=== PATIENT | female | born 1960 | race Caucasian/White ===

== ENCOUNTER 2020-02-07 11:26 | Outpatient (CLI) | payer OTHER, SELFPAY ==
[2020-02-07 13:10] LABS: Hemoglobin 13.4 g/dL (12.0-15.0); Red Blood Count 4.22 M/mm3 (4.20-5.40); White Blood Count 11.7 K/mm3 (4.8-10.8)
[2020-02-07 13:11] LABS: Basophils Percent Auto 0.6 % (0.0-1.0); Eosinophils Percent Auto 2.8 % (1.0-6.0); Hematocrit 39.1 % (35.0-49.0); Immature Granulocyte Absolute 0.06 K/mm3 (0.00-0.00); Immature Granulocyte Percent A 0.5 % (0.0-0.0); Lymphocytes Absolute Auto 4.13 K/mm3 (1.10-4.50); Lymphocytes Percent Auto 35.3 % (18.0-42.0); Mean Corpuscular HGB Conc 34.3 g/dL (32.0-36.0); Mean Corpuscular Hemoglobin 31.8 pg (27.0-31.0); Mean Corpuscular Volume 92.7 fL (78.0-102.0); Mean Platelet Volume 10.1 fl (9.2-11.8); Monocytes Absolute Auto 1.31 K/mm3 (0.10-0.90); Monocytes Percent Auto 11.2 % (2.0-11.0); Neutrophils Absolute Auto 5.8 K/mm3 (1.7-7.2); Neutrophils Percent Auto 49.6 % (50.0-70.0); Platelet Count Result 395 K/mm3 (150-420); Red Cell Distribution Width 13.4 % (11.6-14.4)
[2020-02-07 13:12] LABS: Basophils Absolute Auto 0.07 K/mm3 (0.00-0.10); Eosinophils Absolute Auto 0.33 K/mm3 (0.02-0.50)
[2020-02-07 13:39] LABS: Anion Gap 13.8 mmol/L (7-16); Blood Urea Nitrogen 20 mg/dL (7-18); Carbon Dioxide 25 mmol/L (21-32); Chloride 105 mmol/L (98-108); Estimated Glomerular Filt Rate > 60; Potassium 4.8 mmol/L (3.5-5.1); Sodium 139 mmol/L (136-145)
[2020-02-07 13:40] LABS: Alanine Aminotransferase 21 U/L (14-59); Albumin Level 4.5 g/dL (3.4-5.0); Alkaline Phosphatase 83 U/L (46-116); Aspartate Amino Transferase 19 U/L (15-37); Bilirubin,Total 0.4 mg/dL (0.00-1.00); Calcium 9.8 mg/dL (8.5-10.1); Cholesterol 235 mg/dL (0-200); Glucose 88 mg/dL (70-99); HDL Direct 45 mg/dL (40-60); LDL Cholesterol Calculated 166 mg/dL (<130); Osmolality Calculated 289 mOsm/kg (285-295); Total Protein 7.1 g/dL (6.4-8.2); Triglycerides 119 mg/dL (0-150)
== END 2020-02-07 11:27 | disposition home or self-care (01) ==
PROVIDERS: PCP Family Medicine; Visit Provider Family Medicine
DX: E03.9 Hypothyroidism, unspecified (principal); J44.9 Chronic obstructive pulmonary disease, unspecified
CPT/HCPCS: 36415; 80053; 80061; 84443; 85025

== ENCOUNTER 2020-02-27 11:04 | Outpatient (CLI) | payer OTHER, SELFPAY ==
--- NOTE | ~2020-02-27 | DEXA_ITS ---
BMD(1) Young-Adult(2) Age-Matched(3) Region (g/cm2) T-score Z-score WHO Classification L1 1.023 -1.0 0.2 Normal L2 1.020 -1.6 -0.4 Osteopenia L3 0.948 -2.1 -1.0 Osteopenia L4 1.023 -1.5 -0.4 Osteopenia L1-L4 1.003 -1.5 -0.4 Osteopenia Trend: L1-L4 Change vs Change vs Measured Age BMD(1) Baseline Previous Date (years) (g/cm2) (%) (%) 02/27/2020 [age] 1.003 baseline - 1 - Statistically 68% of repeat scans fall within 1SD (+- 0.010 g/cm2 for AP Spine L1-L4) 2 - [place] (Combined NHANES (ages 20-30) / [facility] (ages 20-40)) AP Spine Reference Population (v112) 3 - Matched for Age, Weight (females 25-100 kg), Ethnic 11 - World Health Organization - Definition of Osteoporosis and Osteopenia for Women: Normal = T-score at or above -1.0 SD; Osteopenia = T-score between -1.0 and -2.5 SD; Osteoporosis = T-score at or below -2.5 SD; (WHO definitions only apply when a young healthy Women reference database is used to determine T-scores.) Printed: 02/27/2020 11:50:42 AM (13.60)76:3.00:50.00:12.0 0.00:10.20 0.60x1.05 22.3:%Fat=32.0% 0.00:0.00 0.00:0.00 Filename: [id number] Scan Mode: Standard;OneScan 37.0 [employer] [id number] BMD(1) Young-Adult(2,7) Age-Matched(3) Region (g/cm2) T-score Z-score WHO Classification Neck Left 0.880 -1.1 0.1 Osteopenia Right 0.818 -1.6 -0.4 Osteopenia Mean 0.849 -1.4 -0.1 Osteopenia Difference 0.063 0.5 0.5 - Total Left 0.960 -0.4 0.5 Normal Right 0.906 -0.8 0.1 Normal Mean 0.933 -0.6 0.3 Normal Difference 0.054 0.4 0.4 - Hip [place] Length Comparison (mm) (Right = 101.4 mm) (Mean = 103.2 mm) (Left = 102.5 mm) Trend: Total Mean Change vs Change vs Measured Age BMD(1) Baseline Previous Date (years) (g/cm2) (%) (%) 02/27/2020 60.0 0.933 baseline - 1 - Statistically 68% of repeat scans fall within 1SD (+- 0.010 g/cm2 for DualFemur Total) 2 - [place] (Combined NHANES (ages 20-30) / [facility] (ages 20-40)) Femur Reference Population (v112) 3 - Matched for Age, Weight (females 25-100 kg), Ethnic 7 - [employer] Total T-score difference is 0.4. Asymmetry is None. 11 - World Health Organization - Definition of Osteoporosis and Osteopenia for Women: Normal = T-score at or above -1.0 SD; Osteopenia = T-score between -1.0 and -2.5 SD; Osteoporosis = T-score at or below -2.5 SD; (WHO definitions only apply when a young healthy Women reference database is used to determine T-scores.) Printed: 02/27/2020 11:50:43 AM (13.60); Filename: [id number].dfx; Right Femur; 18.1:%Fat=35.3%; Neck Angle (deg)= 65; Scan Mode: Standard 37.0 uGy; Left Femur; 17.4:%Fat=39.0%; Neck Angle (deg)= 71; Scan Mode: Standard 37.0 uGy [facility] [id number] Dear Larry Hernandez, Your patient Alva Shore completed a BMD test on 02/27/2020 using the [facility] DXA System (analysis version: 13.60) manufactured by [employer]. The following summarizes the results of our evaluation. PATIENT BIOGRAPHICAL: Name: Alva Shore Date: 1960 Height: 62.0 in. Gender:
--- NOTE | ~2020-02-27 | MM_ITS ---
EXAMINATION: MM screening gela BI w nuvia HISTORY: Screening mammogram TECHNIQUE: Craniocaudal and mediolateral oblique 3-D tomosynthesis images were obtained and synthetic 2-D images were generated. CAD analysis was submitted and interpreted. COMPARISON: No prior mammogram is available for comparison at this institution. BREAST PARENCHYMAL COMPOSITION: There are scattered areas of fibroglandular density. FINDINGS: There is question of small masses in the lower mid left and right breasts. Bilateral diagno stic mammography and bilateral breast ultrasound examination are recommended. IMPRESSION: 1. Possible small bilateral breast masses 2. Bilateral diagnostic mammography and bilateral breast ultrasound examination are recommended. BI-RADS Category 0: Incomplete: Needs additional imaging evaluation. Reviewed, dictated and finalized at location A.
== END 2020-02-27 11:05 | disposition home or self-care (01) ==
PROVIDERS: PCP Family Medicine; Visit Provider Family Medicine
DX: M85.80 Other specified disorders of bone density and structure, unspecified site (principal); Z12.31 Encounter for screening mammogram for malignant neoplasm of breast
CPT/HCPCS: 77063; 77067; 77080

== ENCOUNTER 2020-03-03 10:48 | Outpatient (CLI) | payer OTHER, SELFPAY ==
--- NOTE | ~2020-03-03 | MMUS_ITS ---
EXAMINATION: MM diagnostic gela BI w nuvia, US breast BI limited HISTORY: Possible small breast masses seen on recent mammogram. TECHNIQUE: Additional 3-D tomosynthesis images of the breasts were performed and synthetic 2-D images were generated. CAD analysis was submitted and interpreted. High resolution bilateral breast ultraso und was performed. COMPARISON: 02/27/2020 FINDINGS: MAMMOGRAPHIC FINDINGS: Breast composed of scattered areas of fibroglandular density. There are no suspicious masses, calcifi cations or architectural distortion in either breast to suggest malignancy. ULTRASOUND: Right breast ultrasound: There is a tiny cyst of the right breast at 6:00 near the nipple measuring less than 2 mm. There is a n oval hypoechoic mass of the right breast at 9:00 measuring 3 mm maximum dimension, likely benign. A t 9:00 near the nipple is an oval hypoechoic mass with echogenic hilum measuring 6 mm, most likely be nign intramammary lymph node. Left breast ultrasound: 2 mm cyst at 8:00, 3 cm from the nipple. No suspicious masses to suggest malignancy. IMPRESSION: 1. Probable benign masses of the right breast by ultrasound. No evidence for malignancy in the left b reast. 2. Recommend 6 month follow-up right breast ultrasound BI-RADS category 3, probably benign findings. Reviewed, dictated and finalized at location A. IMPRESSION: 1. Probable benign masses of the right breast by ultrasound. No evidence for ma lignancy in the left breast. 2. Recommend 6 month follow-up right breast ultrasound BI-RADS category 3, probably benign findings.
== END 2020-03-03 10:49 | disposition home or self-care (01) ==
PROVIDERS: PCP Family Medicine; Visit Provider Family Medicine
DX: R92.8 Other abnormal and inconclusive findings on diagnostic imaging of breast (principal)
CPT/HCPCS: 76642; 77062; 77066; G0279

== ENCOUNTER 2020-09-15 09:36 | Outpatient (CLI) | payer BC, SELFPAY ==
--- NOTE | ~2020-09-15 | US_ITS ---
US breast RT limited 09/15/2020 10:10 Indication: Follow-up right breast masses. Procedure: High-resolution ultrasound of the right breast Comparison: 03/03/2020 Findings: At 6:00 near the nipple there is an oval hypoechoic mass measuring 2.5 mm, unchanged, likel y benign. At 9:00 near the nipple there is a 2.4 mm oval hypoechoic mass which is stable, likely harsh gn. At 9:00 near the nipple there is an oval hypoechoic structure, possibly normal heterogeneous fibr oglandular content. This structure measures 6 x 5 x 2 mm, unchanged. Impression: 1: Stable right breast masses, likely benign. BI-RADS CATEGORY 3-PROBABLY BENIGN FINDING RECOMMENDATION: Six-month follow-up diagnostic bilateral mammogram and right breast ultrasound recomm ended. Reviewed, dictated and finalized at location A. IZATION COORDINATOR Impression: 1: Stable right breast masses, likely benign. BI-RADS CATEGORY 3-PROBABLY BENIGN FINDING RECOMMENDATION: Six-month follow-up diagnostic bilateral mammogram and right br east ultrasound recommended.
[2020-09-15 10:39] LABS: Thyroid Stimulating Hormone Reflex 2.66 u/IU/mL (0.36-3.74)
== END 2020-09-15 09:37 | disposition home or self-care (01) ==
PROVIDERS: PCP Family Medicine; Visit Provider Family Medicine
DX: N63.20 Unspecified lump in the left breast, unspecified quadrant (principal); N63.10 Unspecified lump in the right breast, unspecified quadrant; E03.9 Hypothyroidism, unspecified
CPT/HCPCS: 36415; 76642; 84443

== ENCOUNTER → 2020-12-13 01:09 | Outpatient (CLI) | payer BC, SELFPAY ==
[2020-12-13 18:53] LABS: SARS-CoV-2 RNA PCR Negative
== END ==
PROVIDERS: PCP Family Medicine; Visit Provider Internal Medicine Gastroenterology
DX: Z01.812 Encounter for preprocedural laboratory examination (principal); Z20.822 Contact with and (suspected) exposure to COVID-19
CPT/HCPCS: C9803; U0003; U0005

== ENCOUNTER 2020-12-16 02:00 | Day surgery (SDC) | payer BC, SELFPAY ==
[2020-12-08 12:28] VITALS: BMI 29.0
[2020-12-16 08:32] VITALS: BP 116/97; PULSE 115; RESP 18; TEMP 37; O2SAT 100; BMI 27.0
[2020-12-16] MEDS: LACTATED RINGERS 1,000 ML 150 ML IV CONT (08:42)
--- NOTE | 2020-12-16 09:06 | WPDANESEPPF ---
Anes - Initial Pre Proc Eval Procedure: Operation Date: 12/16/20 09:30 Proposed Procedures p Colonoscopy - Fercho Steel MD Date/Time: 12/16/20 09:06 Surgeon: Fercho Steel MD Pre Op Diagnosis: Positive Cologuard Patient Data Age: 60 Gender: F Height: 5 ft 2 in Weight: 67.1 kg Last Vital Signs Temp 98.6 F 12/16/20 08:32 Pulse 115 H 12/16/20 08:32 Resp 18 12/16/20 08:32 BP 116/97 H 12/16/20 08:32 Pulse Ox 100 12/16/20 08:32 Allergies Allergy/AdvReac Type Severity Reaction Status Date / Time fexofenadine Allergy Intermediate headache Verified 12/16/20 08:31 Penicillins Allergy Unknown Unknown Verified 12/16/20 08:31 Home Medications Medication Instructions Recorded Confirmed Type lorazepam 0.5 mg tablet 0.5 mg PO BID PRN 11/02/19 12/08/20 History omeprazole 20 mg capsule,delayed 20 mg PO DAILY cap 11/02/19 12/08/20 History release Lactobacillus acidophilus 1.5 mg 100 mmu cells PO DAILY 02/07/20 12/08/20 History (250 million cell) capsule ascorbate calcium (vitamin C) 500 500 mg PO DAILY 02/07/20 12/08/20 History mg tablet multivitamin,mr-qzji-gryxeaol 1 tablet PO DAILY 02/07/20 12/08/20 History loratadine 10 mg capsule 10 mg PO BID cap 05/14/20 12/08/20 History triamcinolone acetonide 0.5 % 1 applic TOPICAL BID PRN gm 05/14/20 12/08/20 History topical cream alendronate 70 mg tablet 70 mg PO WEEKLY #4 tablet 08/12/20 12/08/20 Rx montelukast 10 mg tablet 10 mg PO DAILY #90 tablet 08/14/20 12/08/20 Rx fluticasone fur. 100 mcg-umeclid 1 inh INHALATION DAILY #1 ea 09/10/20 12/16/20 Rx 62.5 mcg-vilant 25 mcg inhalat.powder fluticasone propionate 50 1 spray NASAL BID #15.8 ml 09/11/20 12/08/20 Rx mcg/actuation nasal spray,suspension diphenhydramine HCl 25 mg capsule 50 mg PO QPM cap 09/17/20 12/08/20 History atorvastatin 40 mg tablet 40 mg PO DAILY #30 tablet 09/23/20 12/08/20 Rx sodium,potassium,mag sulfates 17.5 See Rx Instructions PO .COMPLEX 11/06/20 Rx gram-3.13 gram-1.6 gram oral soln #354 ml levothyroxine 88 mcg tablet 88 mcg PO DAILY #30 tablet 12/01/20 12/08/20 Rx Calcium 600 + D(3) 2 tab-cap PO DAILY 12/08/20 12/08/20 History cholecalciferol (vitamin D3) 1,000 unit PO DAILY 12/08/20 12/08/20 History [Vitamin D3] cyanocobalamin (vitamin B-12) 500 mcg PO DAILY 12/08/20 12/08/20 History [Vitamin B-12] dextromethorphan-guaifenesin 1 tablet PO PRN PRN 12/08/20 12/08/20 History [Mucinex DM] Patient hx anesthesia problems: none Family hx anesthesia problems: none PMFSH Past Medical History Medical History (Updated 11/13/20 @ 12:47 by Larry Hernandez MD) Acute sinusitis Asthma COPD (chronic obstructive pulmonary disease) GERD (gastroesophageal reflux disease) Hypothyroidism Nicotine dependence Osteopenia Surgical History Surgical History History of hysterectomy 1986 Hx of tonsillectomy Family History Family History Father , Age 84 Hypertension Hyperlipidemia Skin cancer History of cerebrovascular accident Mother Hypertension Hyperlipidemia Dementia History of cerebrovascular accident Other Family history of arthritis Family history of malignant neoplasm Social History Social History Years smoked: 45 Smoking status: Former smoker Tobacco type: cigarettes Alcohol intake: never Drinks per week: 3 Substance use: never Substance use type: marijuana Other substance usage details: OCC. Living arrangements: with family Additional living arrangements comments: . 2 Children. 3 Step-Children. 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
--- NOTE | 2020-12-16 09:07 | PM.HPGS ---
History of Present Illness History of Present Illness Consent: Risks, benefits, and alternatives have been discussed and questions answered. Patient agrees to proceed with procedure. Chief complaint: Positive Cologuard Narrative: Alva Shore is a 60 year old female with positive cologuard, never had a colonoscopy Review of Systems Constitutional: Constitutional: Denies headache(s) and Denies weakness Eyes: Eyes: Denies blurry vision ENT: Reports Normal hearing present, Denies headache(s) and Denies neck pain Cardiovascular: Cardiovascular: Denies chest pain and Denies dyspnea Respiratory: Respiratory: Denies dyspnea Gastrointestinal: Gastrointestinal: Reports no additional gastrointestinal complaints Genitourinary: Genitourinary: Denies dysuria Musculoskeletal: Musculoskeletal: Denies neck pain Integumentary/Breasts: Skin/Breast: Denies dry skin Neurologic: Reports Normal hearing present, Denies headache(s) and Denies weakness Psychiatric: Psychiatric: Denies anxiety Endocrine: Endocrine: Denies change in body appearance Hematologic/Lymphatic: Hematologic/Lymphatic: Denies easy bleeding Allergic/Immunologic: Allergic/Immunologic: Denies urticaria PMFSH Past Medical History Medical History (Updated 12/16/20 @ 09:07 by Fercho Steel MD) Acute sinusitis Asthma COPD (chronic obstructive pulmonary disease) GERD (gastroesophageal reflux disease) Hypothyroidism Nicotine dependence Osteopenia Positive colorectal cancer screening using Cologuard test Surgical History Surgical History History of hysterectomy 1986 Hx of tonsillectomy Family History Family History Father , Age 84 Hypertension Hyperlipidemia Skin cancer History of cerebrovascular accident Mother Hypertension Hyperlipidemia Dementia History of cerebrovascular accident Other Family history of arthritis Family history of malignant neoplasm Social History Social History Years smoked: 45 Smoking status: Former smoker Tobacco type: cigarettes Alcohol intake: never Drinks per week: 3 Substance use: never Substance use type: marijuana Other substance usage details: OCC. Living arrangements: with family Additional living arrangements comments: . 2 Children. 3 Step-Children. 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 Gender identity (if verbalized by the patient): Female Meds Home Medications and Allergies Home Medications Medication Instructions Recorded Confirmed Type lorazepam 0.5 mg tablet 0.5 mg PO BID PRN 11/02/19 12/08/20 History omeprazole 20 mg capsule,delayed 20 mg PO DAILY cap 11/02/19 12/08/20 History release Lactobacillus acidophilus 1.5 mg 100 mmu cells PO DAILY 02/07/20 12/08/20 History (250 million cell) capsule ascorbate calcium (vitamin C) 500 500 mg PO DAILY 02/07/20 12/08/20 History mg tablet multivitamin,gf-tbns-emmrwytj 1 tablet PO DAILY 02/07/20 12/08/20 History loratadine 10 mg capsule 10 mg PO BID cap 05/14/20 12/08/20 History triamcinolone acetonide 0.5 % 1 applic TOPICAL BID PRN gm 05/14/20 12/08/20 History topical cream alendronate 70 mg tablet 70 mg PO WEEKLY #4 tablet 08/12/20 12/08/20 Rx montelukast 10 mg tablet 10 mg PO DAILY #90 tablet 08/14/20 12/08/20 Rx fluticasone fur. 100 mcg-umeclid 1 inh INHALATION DAILY #1 ea 09/10/20 12/16/20 Rx 62.5 mcg-vilant 25 mcg inhalat.powder fluticasone propionate 50 1 spray NASAL BID #15.8 ml 09/11/20 12/08/20 Rx mcg/actuation nasal spray,suspension diphenhydramine HCl 25 mg capsule 50 mg PO QPM cap 09/17/20 12/08/20 History atorvastatin 40 mg tablet 40 mg PO DAILY #30 tablet 09/23/20 12/08/20 Rx sodium,potassium,mag sulfates 17.5 See Rx Instructions PO .COMPLEX 11/06/20 Rx
[2020-12-16 09:34] VITALS: BP 143/98; PULSE 88; RESP 21; O2SAT 99
[2020-12-16 09:44] VITALS: BP 131/85; PULSE 85; RESP 21; O2SAT 100
[2020-12-16 09:54] VITALS: BP 136/89; PULSE 77; RESP 21; O2SAT 98
== END 2020-12-16 10:06 | disposition home or self-care (01) ==
PROVIDERS: PCP Family Medicine; Visit Provider Internal Medicine Gastroenterology
PROC: 0DJD8ZZ Inspection of Lower Intestinal Tract, Via Natural or Artificial Opening Endoscopic (ICD-10-PCS; CPT 45378; principal; 2020-12-16 09:30)
DX: R19.5 Other fecal abnormalities (principal); D12.0 Benign neoplasm of cecum; K63.5 Polyp of colon; K64.8 Other hemorrhoids; J44.9 Chronic obstructive pulmonary disease, unspecified; K21.9 Gastro-esophageal reflux disease without esophagitis; E03.9 Hypothyroidism, unspecified; M85.80 Other specified disorders of bone density and structure, unspecified site; Z87.891 Personal history of nicotine dependence; F12.90 Cannabis use, unspecified, uncomplicated
CPT/HCPCS: 45385; 45380; 88305; J2704; J7120

== ENCOUNTER 2021-02-16 10:37 | Outpatient (CLI) | payer BC, SELFPAY ==
--- NOTE | ~2021-02-16 | MMUS_ITS ---
EXAMINATION: MM diagnostic gela BI w nuvia, US breast RT limited HISTORY: Six-month follow-up for probably benign right breast masses TECHNIQUE: Craniocaudal, mediolateral, and mediolateral oblique 3-D tomosynthesis images of the michael ts were performed and synthetic 2-D images were generated. CAD analysis was submitted and interpreted . High resolution limited right breast ultrasound was performed. COMPARISON: 09/15/2020, 03/03/2020, 02/27/2020 BREAST PARENCHYMAL COMPOSITION: There are scattered areas of fibroglandular density. FINDINGS: MAMMOGRAPHIC FINDINGS: There is no evidence of suspicious mass, calcification, or architectural distortion in either breast to suggest malignancy. There has been no suspicious interval change. ULTRASOUND: There is a stable 2 mm oval, circumscribed, parallel, hypoechoic mass at the 6:00 location near the n ipple in the right breast. Also seen is a stable 3 mm mass with similar sonographic features at the 9 :00 location to the nipple. IMPRESSION: 1. Stable, probably benign sonographically detected right breast masses and no mammographic evidence of malignancy in either breast. 2. Given one year of interval stability, recommend 12 month followup diagnostic mammogram and right b reast ultrasound. BI-RADS category 3, probably benign findings. Reviewed, dictated and finalized at location A. IMPRESSION: 1. Stable, probably benign sonographically detected right breast masses and no mammographic evidence of malignancy in either breast. 2. Given one year of interval stability, recommend 12 month followup diagnostic mammogram and right breast ultrasound. BI-RADS category 3, probably benign findings.
== END 2021-02-16 10:38 | disposition home or self-care (01) ==
LOC: CHSIMG 10:40
PROVIDERS: PCP Family Medicine; Visit Provider Family Medicine
DX: R92.8 Other abnormal and inconclusive findings on diagnostic imaging of breast (principal)
CPT/HCPCS: 76642; 77062; 77066; G0279

== ENCOUNTER 2021-08-17 11:50 | Outpatient (CLI) | payer BC, SELFPAY ==
[2021-08-17 13:06] LABS: SARS-CoV-2 RNA PCR Negative (Negative)
== END 2021-08-17 11:51 | disposition home or self-care (01) ==
LOC: CHSLAB 11:53
PROVIDERS: PCP Nurse Practitioner Family; Visit Provider Nurse Practitioner Family
DX: Z20.822 Contact with and (suspected) exposure to COVID-19 (principal)
CPT/HCPCS: C9803; U0003; U0005

== ENCOUNTER 2021-09-11 11:21 | Outpatient (CLI) | payer BC, SELFPAY ==
--- NOTE | ~2021-09-11 | US_ITS ---
EXAMINATION: US venous doppler UE RT DATE: 09/11/2021 13:36 INDICATION: Right upper limb pain. TECHNIQUE: Grayscale ultrasound images without and with compression and Doppler ultrasound images of the right upper extremity veins were obtained. COMPARISON: None. FINDINGS: The visualized portions of the right internal jugular vein, subclavian vein, axillary vein, brachial veins, basilic vein, cephalic vein, radial vein, and ulnar vein are patent. IMPRESSION: 1. No deep venous thrombosis. Reviewed, dictated and finalized at location A. E SPECIALIST
[2021-09-11 12:44] LABS: Alanine Aminotransferase 20 U/L (14-59); Albumin Level 4.4 g/dL (3.4-5.0); Alkaline Phosphatase 68 U/L (46-116); Anion Gap 11 mmol/L (8-16); Aspartate Amino Transferase 14 U/L (15-37); Bilirubin,Total 0.2 mg/dL (0.00-1.00); Blood Urea Nitrogen 16 mg/dL (7-18); Carbon Dioxide 28 mmol/L (21-32); Chloride 103 mmol/L (98-108); Cholesterol 268 mg/dL (0-200); Estimated Glomerular Filt Rate > 60; Glucose 87 mg/dL (70-99); HDL Direct 57 mg/dL (40-60); LDL Cholesterol Calculated 190 mg/dL (<130); Magnesium 2.2 mg/dL (1.8-2.4); Osmolality Calculated 294 mOsm/kg (285-295); Potassium 4.6 mmol/L (3.5-5.1); Sodium 142 mmol/L (136-145); Thyroid Stimulating Hormone 6.66 uIU/mL (0.36-3.74); Total Protein 7.6 g/dL (6.4-8.2); Triglycerides 107 mg/dL (0-150)
[2021-09-11 12:47] LABS: Basophils Absolute Auto 0.06 K/mm3 (0.00-0.10); Basophils Percent Auto 0.5 % (0.0-1.0); Eosinophils Absolute Auto 0.21 K/mm3 (0.02-0.50); Eosinophils Percent Auto 1.8 % (1.0-6.0); Hematocrit 40.1 % (35.0-49.0); Hemoglobin 13.5 g/dL (12.0-15.0); Immature Granulocyte Absolute 0.04 K/mm3 (0.00-0.00); Immature Granulocyte Percent A 0.4 % (0.0-0.0); Lymphocytes Absolute Auto 3.81 K/mm3 (1.10-4.50); Lymphocytes Percent Auto 33.4 % (18.0-42.0); Mean Corpuscular HGB Conc 33.7 g/dL (32.0-36.0); Mean Corpuscular Hemoglobin 32.5 pg (27.0-31.0); Mean Corpuscular Volume 96.6 fL (78.0-102.0); Mean Platelet Volume 10.7 fl (9.2-11.8); Monocytes Absolute Auto 1.13 K/mm3 (0.10-0.90); Monocytes Percent Auto 9.9 % (2.0-11.0); Neutrophils Absolute Auto 6.2 K/mm3 (1.7-7.2); Platelet Count Result 426 K/mm3 (150-420); Red Blood Count 4.15 M/mm3 (4.20-5.40); Red Cell Distribution Width 13.3 % (11.6-14.4); White Blood Count 11.4 K/mm3 (4.8-10.8)
[2021-09-16 04:33] LABS: Vitamin D 25 Hydroxy 83 ng/mL (30-100)
== END 2021-09-11 11:22 | disposition home or self-care (01) ==
LOC: CHSLAB 11:24
PROVIDERS: PCP Nurse Practitioner Family; Visit Provider Nurse Practitioner Family
DX: M79.601 Pain in right arm (principal); E78.5 Hyperlipidemia, unspecified; M85.80 Other specified disorders of bone density and structure, unspecified site; E03.9 Hypothyroidism, unspecified; J44.9 Chronic obstructive pulmonary disease, unspecified; J45.909 Unspecified asthma, uncomplicated
CPT/HCPCS: 36415; 80053; 80061; 82306; 83735; 84443; 85025; 93971

== ENCOUNTER 2021-10-23 11:14 | Outpatient (CLI) | payer BC, SELFPAY ==
[2021-10-23 12:30] LABS: Thyroid Stimulating Hormone 3.93 uIU/mL (0.36-3.74)
== END 2021-10-23 11:15 | disposition home or self-care (01) ==
LOC: CHSLAB 11:16
PROVIDERS: PCP Nurse Practitioner Family; Visit Provider Nurse Practitioner Family
DX: E03.9 Hypothyroidism, unspecified (principal)
CPT/HCPCS: 36415; 84443

== ENCOUNTER 2021-12-04 10:23 | Outpatient (CLI) | payer BC, SELFPAY ==
[2021-12-04 11:19] LABS: Thyroid Stimulating Hormone 4.31 uIU/mL (0.36-3.74)
== END 2021-12-04 10:24 | disposition home or self-care (01) ==
LOC: CHSLAB 10:25
PROVIDERS: PCP Nurse Practitioner Family; Visit Provider Nurse Practitioner Family
DX: E03.9 Hypothyroidism, unspecified (principal)
CPT/HCPCS: 36415; 84443

== ENCOUNTER 2021-12-10 11:52 | Outpatient (CLI) | payer BC, SELFPAY ==
--- NOTE | ~2021-12-10 | US_ITS ---
EXAMINATION: US thyroid EXAM DATE: 12/10/2021 12:25 INDICATION: E03.9 - Hypothyroidism, unspecified. TECHNIQUE: Multiple grayscale and Doppler images of the thyroid were obtained (by a technologist who performed the scan) and subsequently reviewed. Individual nodules and recommendations may be reporte d in accordance with TI-RADS system as designated by the 2017 ACR White Paper TI-RADS committee. Comp lori is made to prior examination from 09/08/2012. FINDINGS: The right thyroid lobe measures 4.4 x 2.0 x 1.1 cm, the left measuring 5.2 x 1.2 x 1.1 cm. Thyroid pa renchyma is diffusely heterogeneous. There is a nodule in the right thyroid lobe superficially measuring 5 x 5 x 5 mm, solid (2 points), h ypoechoic (2 points), wider than tall, smooth well defined margin, containing peripheral calcificatio n (2 points), category TR4 for this nodule. . Slightly larger but still subcentimeter nodule in the thyroid isthmus measuring 8 x 9 x 6 millimeters, solid (2 points), hypoechoic (2 points), wider than tall, smooth well defined margin, containing punctate echogenic foci consistent with microcalcificati on (3 points), category TR5 for this nodule. Previously seen 2 cm left thyroid lobe nodule no longer identified. IMPRESSION: Heterogeneous thyroid with subcentimeter nodules; recommend one-year follow-up for isthmu s TR 5 nodule. Reviewed, dictated and finalized at location A. IMPRESSION: Heterogeneous thyroid with subcentimeter nodules; recommend one-yea r follow-up for isthmus TR 5 nodule.
== END 2021-12-10 11:53 | disposition home or self-care (01) ==
LOC: CHSIMG 11:53
PROVIDERS: PCP Nurse Practitioner Family; Visit Provider Nurse Practitioner Family
DX: E03.9 Hypothyroidism, unspecified (principal)
CPT/HCPCS: 76536

== ENCOUNTER 2021-12-30 10:23 | Outpatient (CLI) | payer BC, SELFPAY ==
--- NOTE | ~2021-12-30 | XR_ITS ---
XR wrist LT min 3V DATE: 12/30/2021 10:38 INDICATION: Medial wrist pain for one day. No known injury. [place] pop. TECHNIQUE: 4 views COMPARISON: None FINDINGS: There is mild osteoarthritis at the first carpometacarpal joint. No fracture or dislocation, periosteal reaction or bone destruction, chondrocalcinosis or erosive corinne nge. IMPRESSION: Mild osteoarthritis at first carpometacarpal joint Reviewed, dictated and finalized at location A.
== END 2021-12-30 10:24 | disposition home or self-care (01) ==
LOC: CHSIMG 10:25
PROVIDERS: PCP Nurse Practitioner Family; Visit Provider Nurse Practitioner Family
DX: M25.532 Pain in left wrist (principal)
CPT/HCPCS: 73110

== ENCOUNTER 2022-01-11 09:16 | Outpatient (RCR) | payer BC, SELFPAY ==
--- NOTE | 2022-01-11 10:51 | OTOPEVAL ---
Thank you for referring Alva Shore to [facility].? The patient is scheduled to be seen for therapy? ____x/week for ___ weeks. Please review, sign, date and return this plan of care FRANK. I agree with and certify that the following plan of care is medically necessary. Referring Physician Date Admitting Provider: Attending Provider: Gi Whitlock NP Referring Provider: NinaOT Outpatient Evaluation Start: 01/11/22 09:28 Freq: Status: Active Protocol: Document 01/11/22 09:28 [facility] [place] (Rec: 01/11/22 10:50 [facility] [id number][place] Therapy Assessment Status Assessment Status Assessment Status Evaluation Outpatient Past Medical History Neurological History Hx Neurological Disorders No Significant History Cardiovascular History Hx Hypercholesterolemia Yes Hx Palpitations Yes Respiratory History Hx Asthma Yes Hx Bronchitis Yes Hx Chronic Obstructive Pulmonary Disease Yes (COPD) Hx Pneumonia Yes Gastrointestinal History Hx Gastroesophageal Reflux Disease Yes Genitourinary History Hx Genitourinary Disorders No Significant History Musculoskeletal History Hx Orthopedic Surgery Yes: CARPAL TUNNEL BILATERAL Hematological History Hx Other Hematological Disorders Yes: VITAMIN K SHOTS A CHILD FOR DENTAL PROCEDURES- NONE ADULT Endocrine History Hx Hypothyroidism Yes HEENT History Hx Tonsillectomy Yes: CHILD Hx Sinus Problems Yes: ALLERGIES Hx Eye Surgery Yes: LASIK 08/09 Integumentary History Hx Skin Disorders No Significant History Psychosocial History Hx Anxiety Yes Hx Depression Yes Pain History History of Any Previous or Ongoing No Significant History Instance of Pain Anesthesia History Hx Anesthesia Reactions No Significant History Evaluation Information Problem Diagnosis UE weakness and pain Onset 01/08/22 Subjective Information Patient reports that last week Query Text:As Reported By Patient/ her L wrist swelled up and Family they did some X-rays and noted arthritis. Over the last 6-8 months patient has noticed a decline in strength in her UE' s, including hands and fingers . Patient states that last year she was able to work in the yard all day long and now is only able to perform for ~ 20 min and has to stop
--- NOTE | 2022-01-13 15:12 | PTOPEVAL ---
Thank you for referring Alva Shore to [facility].? The patient is scheduled to be seen for therapy? ____x/week for ___ weeks. Please review, sign, date and return this plan of care FRANK. I agree with and certify that the following plan of care is medically necessary. Referring Physician Date Admitting Provider: Attending Provider: Gi Whitlock NP Referring Provider: [facility] Outpatient Evaluation Start: 01/13/22 14:04 Freq: Status: Active Protocol: Document 01/13/22 14:05 [facility] (Rec: 01/13/22 15:11 [facility] [id number]) Therapy Assessment Status Assessment Status Assessment Status Evaluation Outpatient Past Medical History Neurological History Hx Neurological Disorders No Significant History Cardiovascular History Hx Hypercholesterolemia Yes Hx Palpitations Yes Respiratory History Hx Asthma Yes Hx Bronchitis Yes Hx Chronic Obstructive Pulmonary Disease Yes (COPD) Hx Pneumonia Yes Gastrointestinal History Hx Gastroesophageal Reflux Disease Yes Genitourinary History Hx Genitourinary Disorders No Significant History Musculoskeletal History Hx Orthopedic Surgery Yes: CARPAL TUNNEL BILATERAL Hematological History Hx Other Hematological Disorders Yes: VITAMIN K SHOTS A CHILD FOR DENTAL PROCEDURES- NONE ADULT Endocrine History Hx Hypothyroidism Yes HEENT History Hx Tonsillectomy Yes: CHILD Hx Sinus Problems Yes: ALLERGIES Hx Eye Surgery Yes: LASIK 08/09 Integumentary History Hx Skin Disorders No Significant History Psychosocial History Hx Anxiety Yes Hx Depression Yes Pain History History of Any Previous or Ongoing No Significant History Instance of Pain Anesthesia History Hx Anesthesia Reactions No Significant History Evaluation Information Problem Diagnosis musculoskeletal system Onset 01/08/22 Subjective Information patient reports she is feeling Query Text:As Reported By Patient/ like she is unable to Family complete the tasks and activities she used to be able to do. she reports she was having more issues with the hands and found OA in the hands and is having OT for this issue currently. she reports with the lower body she struggles to get back up to standing from being down on
--- NOTE | 2022-03-16 17:14 | PCOTNOTE ---
Patient seen for 3 OT sessions and discharged from OT services per patient request. See last treatment note for patient's skills and concerns at time of discharge. MS
--- NOTE | 2022-05-03 16:46 | PCPTNOTE ---
Mrs. Shore attended a total of 2 treatment sessions from 01/13/22 to 01/18/22. She has failed to return to the clinic and will be discharged from our care. Refer to pt. last daily note for discharge status.
== END 2022-01-18 09:01 | disposition home or self-care (01) ==
LOC: CHSOT 09:16
PROVIDERS: PCP Nurse Practitioner Family; Visit Provider Nurse Practitioner Family
DX: R29.898 Other symptoms and signs involving the musculoskeletal system (principal)
CPT/HCPCS: 97110; 97140; 97161; 97165

== ENCOUNTER 2022-01-15 09:04 | Outpatient (CLI) | payer BC, SELFPAY ==
--- NOTE | ~2022-01-15 | XR_ITS ---
XR hip LT min 2V DATE: 01/15/2022 09:47 INDICATION: Left hip pain after physical therapy TECHNIQUE: AP and lateral views COMPARISON: None FINDINGS: No fracture, dislocation, avascular necrosis or bone destruction of the left hip. Alignment at the pubic symphysis and included left sacroiliac joint. Left hip joint space appears well preserv ed. IMPRESSION: Negative left hip Reviewed, dictated and finalized at location B. IMPRESSION: Negative left hip
[2022-01-15 10:55] LABS: Free T3 2.78 pg/mL (2.18-3.98); Free T4 Free Thyroxine 1.18 ng/dL (0.76-1.46); Thyroid Stimulating Hormone 2.98 uIU/mL (0.36-3.74)
== END 2022-01-15 09:05 | disposition home or self-care (01) ==
LOC: CHSLAB 09:08
PROVIDERS: PCP Nurse Practitioner Family; Visit Provider Nurse Practitioner Family
DX: M25.552 Pain in left hip (principal); R93.89 Abnormal findings on diagnostic imaging of other specified body structures; E03.9 Hypothyroidism, unspecified
CPT/HCPCS: 36415; 73502; 84439; 84443; 84481

== ENCOUNTER 2022-02-18 08:17 | Outpatient (CLI) | payer BC, SELFPAY ==
--- NOTE | ~2022-02-18 | DEXA_ITS ---
Bone Density Report Name: JOAQUIM CARLIN Age: 61 Sex: Female Ethnicity: White Date of : 1960 Indication: hyperparathyroidism; prior fracture; cancer; asthma or emphysema; hysterectomy; Referring Provider: Gi Whitlock Study: Bone densitometry was performed. Exam Date: February 18, 2022 Accession number: [id number] Bone Density: Region BMD T-score Z-score Classification AP Spine(L1-L4) 0.934 -1.0 0.6 Normal Femoral Neck (Left) 0.583 -2.4 -1.0 Osteopenia Total Hip (Left) 0.859 -0.7 0.4 Normal Femoral Neck (Right) 0.686 -1.5 -0.1 Osteopenia Total Hip (Right) 0.864 -0.6 0.5 Normal Femoral Neck Mean 0.634 -1.9 -0.5 Osteopenia Total Hip Mean 0.861 -0.7 0.4 Normal World Health Organization criteria for BMD impression classify patients as: Normal (T-score at or above -1.0), Osteopenia (T-score between -1.0 and -2.5), or Osteoporosis (T-score at or below -2.5). 10-year Fracture Risk: FRAX not reported because: Treated for osteoporosis Clinical Information Provided by Patient: Has had a low trauma fracture Smokes Is being treated for osteoporosis Has used the following medications: Fosamax (i.e. alendronate), Vitamin D, Calcium Has the following medical conditions: Asthma or Emphysema, Cancer, Hyperparathyroidism, Hysterectomy Patient maximum height was 62 Menopause Age: 29 Drinks caffeinated beverages Onset of menses at age 8 Number of children 2 Impression: The patient has low bone mass, based on the Left Femoral Neck T-score. The patient has risk factors, including: smoking, previous fracture. Discussion: It is important to ask patients whether they are taking their medications and to encourage continued and appropriate compliance with their osteoporosis therapies to reduce fracture risk. It is also important to review their risk factors and encourage appropriate calcium and vitamin D intakes, exercise, fall prevention and other lifestyle measures. Follow-Up: Consider a repeat BMD and Vertebral Fracture Assessment (VFA) exam in 2 years or sooner if medically necessary, to reassess this patient's status. Reported by: Dr. Angelo Abdi on 02/18/2022 9:07:00 AM. Reviewed, dictated and finalized at location Reinier BANEGAS
--- NOTE | ~2022-02-18 | MMUS_ITS ---
EXAMINATION: MM diagnostic gela BI w nuvia, US breast RT limited HISTORY: Follow-up left breast asymmetry TECHNIQUE: Additional 3-D tomosynthesis images of breasts were performed and synthetic 2-D images wer e generated. CAD analysis was submitted and interpreted. High resolution Limited left breast ultrasou nd was performed. COMPARISON: Comparison to multiple prior studies sequentially, with oldest reviewed study dated 02/26. BREAST PARENCHYMAL COMPOSITION: Breast composed of scattered areas of fibroglandular density FINDINGS: MAMMOGRAPHIC FINDINGS: Breast composed of scattered areas of fibroglandular density. ULTRASOUND: Limited ultrasound of the right breast: At 6:00 near the nipple there is a 2.5 mm cyst. At 9:00 near the nipple there is a mildly prominent duct. No suspicious masses to suggest malignancy. IMPRESSION: 1. No evidence for malignancy in either breast benign findings. 2. Routine yearly screening mammogram and regular clinical breast examination are recommended. BI-RADS Category 2: Benign finding(s). Reviewed, dictated and finalized at location A. IMPRESSION: 1. No evidence for malignancy in either breast benign findings. 2. Routine yearly screening mammogram and regular clinical breast examination a re recommended. BI-RADS Category 2: Benign finding(s).
== END 2022-02-18 08:18 | disposition home or self-care (01) ==
LOC: CHSIMG 08:18
PROVIDERS: PCP Nurse Practitioner Family; Visit Provider Nurse Practitioner Family
DX: M81.0 Age-related osteoporosis without current pathological fracture (principal); R92.8 Other abnormal and inconclusive findings on diagnostic imaging of breast
CPT/HCPCS: 76642; 77062; 77066; 77080; G0279

== ENCOUNTER 2022-03-10 11:15 | Outpatient (CLI) | payer BC, SELFPAY ==
--- NOTE | ~2022-03-10 | XR_ITS ---
XR chest 2V DATE: 03/10/2022 15:41 INDICATION: Leukocytosis. Asthma, COPD. History of cervical cancer. TECHNIQUE: PA and lateral views COMPARISON: 10/02/2018 CT thorax FINDINGS: Normal heart size. No hilar or mediastinal enlargement. No pulmonary infiltrate or consolid ation, pleural effusion or pulmonary vascular congestion or pneumothorax. Included skeletal structures are unremarkable other than osteopenia. IMPRESSION: No active cardiopulmonary disease Reviewed, dictated and finalized at location A.
[2022-03-10 11:31] LABS: Hematocrit 39.7 % (35.0-49.0); Hemoglobin 13.2 g/dL (12.0-15.0); Mean Corpuscular HGB Conc 33.2 g/dL (32.0-36.0); Mean Corpuscular Hemoglobin 31.9 pg (27.0-31.0); Mean Corpuscular Volume 95.9 fL (78.0-102.0); Mean Platelet Volume 9.7 fl (9.2-11.8); Platelet Count Result 401 K/mm3 (150-420); Red Blood Count 4.14 M/mm3 (4.20-5.40); Red Cell Distribution Width 13.2 % (11.6-14.4); White Blood Count 11.1 K/mm3 (4.8-10.8)
[2022-03-10 12:10] LABS: Thyroid Stimulating Hormone 0.81 uIU/mL (0.36-3.74)
== END 2022-03-10 11:16 | disposition home or self-care (01) ==
PROVIDERS: PCP Nurse Practitioner Family; Visit Provider Nurse Practitioner Family
DX: D72.829 Elevated white blood cell count, unspecified (principal); E03.9 Hypothyroidism, unspecified
CPT/HCPCS: 36415; 71046; 84443; 85027

== ENCOUNTER 2022-04-15 11:25 | Outpatient (CLI) | payer BC, SELFPAY ==
--- NOTE | ~2022-04-15 | XR_ITS ---
XR foot RT min 3V DATE: 04/15/2022 11:40 INDICATION: Hallux valgus, bunion TECHNIQUE: 3 views COMPARISON: None FINDINGS: Hallux valgus and bunion deformity. Mild osteoarthritis at the first metatarsophalangeal jovani int. No fracture or dislocation, periosteal reaction or bone destruction. IMPRESSION: Hallux valgus and bunion deformity Mild osteoarthritis at first metatarsophalangeal joint Reviewed, dictated and finalized at location B.
== END 2022-04-15 11:26 | disposition home or self-care (01) ==
LOC: CHSIMG 11:27
PROVIDERS: PCP Nurse Practitioner Family; Visit Provider Student in an Organized Health Care Education/Training Program
DX: M20.11 Hallux valgus (acquired), right foot (principal)
CPT/HCPCS: 73630

== ENCOUNTER 2022-05-14 12:03 | Outpatient (CLI) | payer BC, SELFPAY ==
[2022-05-14 12:17] LABS: Basophils Absolute Auto 0.05 K/mm3 (0.00-0.10); Basophils Percent Auto 0.4 % (0.0-1.0); Eosinophils Absolute Auto 0.41 K/mm3 (0.02-0.50); Eosinophils Percent Auto 3.2 % (1.0-6.0); Hemoglobin 12.9 g/dL (12.0-15.0); Immature Granulocyte Absolute 0.08 K/mm3 (0.00-0.00); Immature Granulocyte Percent A 0.6 % (0.0-0.0); Lymphocytes Absolute Auto 3.13 K/mm3 (1.10-4.50); Lymphocytes Percent Auto 24.5 % (18.0-42.0); Mean Corpuscular HGB Conc 33.9 g/dL (32.0-36.0); Mean Corpuscular Hemoglobin 32.9 pg (27.0-31.0); Mean Corpuscular Volume 96.9 fL (78.0-102.0); Mean Platelet Volume 9.9 fl (9.2-11.8); Monocytes Absolute Auto 1.39 K/mm3 (0.10-0.90); Monocytes Percent Auto 10.9 % (2.0-11.0); Neutrophils Absolute Auto 7.7 K/mm3 (1.7-7.2); Neutrophils Percent Auto 60.4 % (50.0-70.0); Platelet Count Result 395 K/mm3 (150-420); Red Blood Count 3.92 M/mm3 (4.20-5.40); Red Cell Distribution Width 13.3 % (11.6-14.4); White Blood Count 12.8 K/mm3 (4.8-10.8)
== END 2022-05-14 12:04 | disposition home or self-care (01) ==
PROVIDERS: PCP Nurse Practitioner Family; Visit Provider Internal Medicine Hematology & Oncology
DX: D72.829 Elevated white blood cell count, unspecified (principal)
CPT/HCPCS: 36415; 85025

== ENCOUNTER 2022-05-31 10:42 | Outpatient (CLI) | payer BC, SELFPAY ==
--- NOTE | ~2022-05-31 | XR_ITS ---
EXAMINATION: XR chest 2V 05/31/2022 11:22 INDICATION: Preop chest. COPD. PROCEDURE: 2 view chest COMPARISON: 03/10/2022 FINDINGS: The lungs are clear. The cardiomediastinal silhouette is within normal limits. There are no pleural effusions. There is no pneumothorax suspected. IMPRESSION: 1: NO ACUTE CARDIOPULMONARY DISEASE. Reviewed, dictated and finalized at location B.
--- NOTE | 2022-05-31 10:43 | ECG_ITS ---
Measurements Intervals [place] Rate: 76 P: 66 OR: 157 QRS: 69 QRSD: 83 T: 48 QT: 382 QTc: 432 Interpretive Statements SINUS RHYTHM NORMAL ECG NO PREVIOUS ECG AVAILABLE FOR COMPARISON Electronically Signed On 05-31-2022 11:31:32 CDT by Abdulkadir García D.O.
[2022-05-31 10:58] LABS: Basophils Absolute Auto 0.07 K/mm3 (0.00-0.10); Basophils Percent Auto 0.8 % (0.0-1.0); Eosinophils Absolute Auto 0.24 K/mm3 (0.02-0.50); Eosinophils Percent Auto 2.6 % (1.0-6.0); Hematocrit 39.2 % (35.0-49.0); Hemoglobin 13.2 g/dL (12.0-15.0); Immature Granulocyte Absolute 0.03 K/mm3 (0.00-0.00); Immature Granulocyte Percent A 0.3 % (0.0-0.0); Lymphocytes Absolute Auto 2.92 K/mm3 (1.10-4.50); Lymphocytes Percent Auto 31.3 % (18.0-42.0); Mean Corpuscular HGB Conc 33.7 g/dL (32.0-36.0); Mean Corpuscular Volume 95.1 fL (78.0-102.0); Mean Platelet Volume 9.8 fl (9.2-11.8); Monocytes Absolute Auto 1.05 K/mm3 (0.10-0.90); Monocytes Percent Auto 11.3 % (2.0-11.0); Neutrophils Percent Auto 53.7 % (50.0-70.0); Platelet Count Result 443 K/mm3 (150-420); Red Blood Count 4.12 M/mm3 (4.20-5.40); Red Cell Distribution Width 13.1 % (11.6-14.4); White Blood Count 9.3 K/mm3 (4.8-10.8)
[2022-05-31 11:07] LABS: Add Urine Microscopic? NO; Appearance Urine Clear (Clear); Bilirubin Urine Negative (Negative); Blood Urine Negative (Negative); Color Urine Light Yellow (Yellow); Glucose Urine UA Negative (Negative); Ketones Urine Negative (Negative); Leukocyte Esterase Ur Negative LEU/UL (Negative); Nitrate Urine Negative (Negative); Protein Urine Negative (Negative); Urobilinogen Urine 0.2 mg/dL (0.2-1.0); pH Urine 5.5 (5.0-8.0)
[2022-05-31 11:12] LABS: Prothrombin Time 10.9 Seconds (9.50-12.10)
[2022-05-31 11:14] LABS: Alanine Aminotransferase 23 U/L (14-59); Albumin Level 4.2 g/dL (3.4-5.0); Alkaline Phosphatase 69 U/L (46-116); Anion Gap 8 mmol/L (8-16); Aspartate Amino Transferase 17 U/L (15-37); Bilirubin,Total 0.2 mg/dL (0.00-1.00); Blood Urea Nitrogen 18 mg/dL (7-18); Calcium 9.5 mg/dL (8.5-10.1); Carbon Dioxide 27 mmol/L (21-32); Chloride 103 mmol/L (98-108); Cholesterol 238 mg/dL (0-200); Estimated Glomerular Filt Rate > 60; Glucose 95 mg/dL (70-99); HDL Direct 41 mg/dL (40-60); LDL Cholesterol Calculated 155 mg/dL (<130); Osmolality Calculated 287 mOsm/kg (285-295); Potassium 4.1 mmol/L (3.5-5.1); Sodium 138 mmol/L (136-145); Total Protein 7.5 g/dL (6.4-8.2); Triglycerides 208 mg/dL (0-150)
== END 2022-05-31 10:43 | disposition home or self-care (01) ==
LOC: CHSLAB 10:43
PROVIDERS: PCP Nurse Practitioner Family; Visit Provider Nurse Practitioner Family
DX: Z01.818 Encounter for other preprocedural examination (principal)
CPT/HCPCS: 36415; 71046; 80053; 80061; 81003; 85025; 85610; 93005

== ENCOUNTER 2022-07-01 11:37 | Outpatient (CLI) | payer BC, SELFPAY ==
--- NOTE | ~2022-07-01 | XR_ITS ---
XR_[id number]_CR DATE: 07/01/2022 11:59 INDICATION: Postoperative examination TECHNIQUE: Three-view weightbearing examination COMPARISON: None FINDINGS: Recent postoperative changes including osteotomy at the first metatarsal bone and proximal phalanx of the first digit, including 2 screws through the distal shaft of the first metatarsal bone and oblique screw through the shaft and medial base of the proximal phalanx of the first digit. Otherwise no fracture, dislocation, periosteal reaction or bone destruction. IMPRESSION: Postoperative change from bunionectomy, including osteotomy of first metatarsal bone and proximal phalanx of first digit Reviewed, dictated and finalized at Location A. Reviewed, dictated and finalized at location A. IMPRESSION: Postoperative change from bunionectomy, including osteotomy of firs t metatarsal bone and proximal phalanx of first digit
== END 2022-07-01 11:38 | disposition home or self-care (01) ==
LOC: CHSIMG 11:39
PROVIDERS: PCP Nurse Practitioner Family; Visit Provider Student in an Organized Health Care Education/Training Program
DX: Z98.890 Other specified postprocedural states (principal)
CPT/HCPCS: 73630

== ENCOUNTER 2022-12-02 09:53 | Outpatient (CLI) | payer BC, SELFPAY ==
--- NOTE | ~2022-12-02 | XR_ITS ---
Right foot Technique: AP, oblique, and lateral views were obtained. Clinical History: Postoperative pain COMPARISON: 04/15/2022 Findings: No acute fracture or dislocation is seen. Patient is status post interval bunionectomy and presumed first metatarsal osteotomy, with orthopedic screws at the first metatarsal and first proxima l phalanx. No hardware complication is evident. Soft tissues are unremarkable. Impression: No acute abnormality seen. Postoperative changes about the first MTP joint region, as detailed above. Correlate with surgical hi story. Reviewed, dictated and finalized at location M. Impression: No acute abnormality seen. Postoperative changes about the first MTP joint region, as detailed above. Antonino elate with surgical history.
== END 2022-12-02 09:54 | disposition home or self-care (01) ==
LOC: CHSIMG 09:55
PROVIDERS: PCP Nurse Practitioner Family; Visit Provider Student in an Organized Health Care Education/Training Program
DX: G89.18 Other acute postprocedural pain (principal)
CPT/HCPCS: 73630

== ENCOUNTER 2023-02-22 08:06 | Outpatient (CLI) | payer BC, SELFPAY ==
--- NOTE | ~2023-02-22 | MM_ITS ---
EXAMINATION: MM screening gela BI w nuvia HISTORY: Screening mammogram TECHNIQUE: Craniocaudal and mediolateral oblique 3-D tomosynthesis images were obtained and synthetic 2-D images were generated. CAD analysis was submitted and interpreted. COMPARISON: 02/18/2022 diagnostic right mammogram 03/03/2020 bilateral mammogram and bilateral breast ultrasound examination 02/23/2020 bilateral screening mammogram BREAST PARENCHYMAL COMPOSITION: There are scattered areas of fibroglandular density. FINDINGS: Stable mild fibroglandular asymmetry. Occasional benign calcifications. There is no evidenc e of suspicious mass, calcification, or architectural distortion to suggest malignancy in either edu st. There has been no suspicious interval change. IMPRESSION: 1. No mammographic evidence of malignancy. 2. Recommend routine screening mammography in one year. BI-RADS Category 2: Benign finding(s). Reviewed, dictated and finalized at location A.
[2023-02-22 09:09] LABS: Alanine Aminotransferase 63 U/L (14-59); Alkaline Phosphatase 73 U/L (46-116); Anion Gap 8 mmol/L (8-16); Aspartate Amino Transferase 34 U/L (15-37); Bilirubin,Total 0.3 mg/dL (0.00-1.00); Blood Urea Nitrogen 22 mg/dL (7-18); Calcium 9.7 mg/dL (8.5-10.1); Carbon Dioxide 30 mmol/L (21-32); Chloride 106 mmol/L (98-108); Cholesterol 244 mg/dL (0-200); Estimated Glomerular Filt Rate > 60; Free T4 Free Thyroxine 1.29 ng/dL (0.76-1.46); Glucose 95 mg/dL (70-99); HDL Direct 70 mg/dL (40-60); LDL Cholesterol Calculated 154 mg/dL (<130); Osmolality Calculated 301 mOsm/kg (285-295); Potassium 5.8 mmol/L (3.5-5.1); Sodium 144 mmol/L (136-145); Thyroid Stimulating Hormone 0.05 uIU/mL (0.36-3.74); Total Protein 6.9 g/dL (6.4-8.2); Triglycerides 98 mg/dL (0-150)
== END 2023-02-22 08:07 | disposition home or self-care (01) ==
LOC: CHSIMG 08:09
PROVIDERS: PCP Nurse Practitioner Family; Visit Provider Nurse Practitioner Family
DX: Z12.31 Encounter for screening mammogram for malignant neoplasm of breast (principal); E03.9 Hypothyroidism, unspecified; E78.5 Hyperlipidemia, unspecified
CPT/HCPCS: 36415; 77063; 77067; 80053; 80061; 84439; 84443

== ENCOUNTER 2023-04-25 10:15 | Outpatient (CLI) | payer BC, SELFPAY ==
[2023-04-25 11:44] LABS: Free T4 Free Thyroxine 1.11 ng/dL (0.76-1.46); Thyroid Stimulating Hormone 1.15 uIU/mL (0.36-3.74)
[2023-04-25 11:45] LABS: Vitamin B12 > 2000 pg/mL (193-986)
[2023-04-28 19:10] LABS: Vitamin D 25 Hydroxy 121 ng/mL (30-100)
== END 2023-04-25 10:16 | disposition home or self-care (01) ==
LOC: CHSLAB 10:18
PROVIDERS: PCP Nurse Practitioner Family; Visit Provider Nurse Practitioner Family
DX: E53.8 Deficiency of other specified B group vitamins (principal); M21.611 Bunion of right foot; E03.9 Hypothyroidism, unspecified; Z79.899 Other long term (current) drug therapy
CPT/HCPCS: 36415; 82306; 82607; 84439; 84443

== ENCOUNTER 2023-08-15 09:45 | Outpatient (CLI) | payer BC, SELFPAY ==
[2023-08-15 11:24] LABS: Alanine Aminotransferase 24 U/L (14-59); Albumin Level 4.1 g/dL (3.4-5.0); Alkaline Phosphatase 58 U/L (46-116); Anion Gap 3 mmol/L (8-16); Aspartate Amino Transferase 16 U/L (15-37); Bilirubin,Total 0.3 mg/dL (0.00-1.00); Blood Urea Nitrogen 12 mg/dL (7-18); Calcium 9.6 mg/dL (8.5-10.1); Carbon Dioxide 33 mmol/L (21-32); Chloride 100 mmol/L (98-108); Estimated Glomerular Filt Rate > 60; Free T4 Free Thyroxine 1.05 ng/dL (0.76-1.46); Glucose 100 mg/dL (70-99); Osmolality Calculated 281 mOsm/kg (285-295); Sodium 136 mmol/L (136-145); Thyroid Stimulating Hormone 4.48 uIU/mL (0.36-3.74)
[2023-08-15 11:25] LABS: Vitamin B12 > 2000 pg/mL (193-986)
[2023-08-19 12:27] LABS: Vitamin D 25 Hydroxy 97 ng/mL (30-100)
== END 2023-08-15 09:46 | disposition home or self-care (01) ==
PROVIDERS: PCP Nurse Practitioner Family; Visit Provider Nurse Practitioner Family
DX: E03.9 Hypothyroidism, unspecified (principal); E87.5 Hyperkalemia; E55.9 Vitamin D deficiency, unspecified; E53.8 Deficiency of other specified B group vitamins
CPT/HCPCS: 36415; 80053; 82306; 82607; 84439; 84443

== ENCOUNTER 2023-10-10 12:06 | Outpatient (CLI) | payer BC, SELFPAY ==
--- NOTE | ~2023-10-10 | US_ITS ---
EXAMINATION: US thyroid DATE: 10/10/2023 12:25 INDICATION: Hypothyroidism. Abnormal findings of diagnostic imaging. TECHNIQUE: Multiple ultrasound images of the thyroid were obtained. COMPARISON: None. FINDINGS: The right thyroid lobe measures 4.3 x 1.4 x 1.2 cm. The left thyroid lobe measures 2.1 x 1.1 x 1.1 c m. There is increased echogenicity and coarsened echotexture throughout the thyroid. There are a coup le wider than tall nodules with smooth peripheral shadowing rim calcification (TI-RADS 4, moderately suspicious , FNA if >=1.5 cm, annual followup is >=1 cm) measuring 7 mm at the thyroid isthmus and 6 mm in the right thyroid lobe. IMPRESSION: 1. A couple subcentimeter rim calcified TI RADS 4 nodule at the thyroid isthmus and right thyroid lob e which remain below size threshold for recommendation of either biopsy or follow-up. 2. Heterogeneous echogenic thyroid with coarsened echotexture which could represent sequela of thyroi ditis. Reviewed, dictated and finalized at location A. OPATHOLOGIST IMPRESSION: 1. A couple subcentimeter rim calcified TI RADS 4 nodule at the thyroid isthmus and right thyroid lobe which remain below size threshold for recommendation of either biopsy or follow-up. 2. Heterogeneous echogenic thyroid with coarsened echotexture which could repre sent sequela of thyroiditis.
== END 2023-10-10 12:07 | disposition home or self-care (01) ==
LOC: CHSIMG 12:07
PROVIDERS: PCP Nurse Practitioner Family; Visit Provider Nurse Practitioner Family
DX: E04.2 Nontoxic multinodular goiter (principal); R93.89 Abnormal findings on diagnostic imaging of other specified body structures
CPT/HCPCS: 76536

== ENCOUNTER 2024-02-27 10:57 | Outpatient (CLI) | payer MEDICARE, OTHER, SELFPAY ==
--- NOTE | ~2024-02-27 | MM_ITS ---
EXAMINATION: MM screening [facility] BI w nuvia HISTORY: Screening mammogram TECHNIQUE: Craniocaudal and mediolateral oblique 3-D tomosynthesis images were obtained and synthetic 2-D images were generated. CAD analysis was submitted and interpreted. COMPARISON: 02/22/2023, 02/18/2022, 02/16/2021 BREAST PARENCHYMAL COMPOSITION:Not Dense. There are scattered areas of fibroglandular density. FINDINGS: No suspicious mass, calcification, or architectural distortion are identified in either deepa ast to suggest malignancy. There has been no suspicious interval change. IMPRESSION: No mammographic evidence of malignancy. Recommend routine screening mammography in one year. BI-RADS Category 1: Negative Reviewed, dictated and finalized at location .
--- NOTE | ~2024-02-27 | DEXA_ITS ---
? Bone Density Report? Name:? JOAQUIM CARLIN Patient ID:??? [id number] Age:? 64 Sex:? Female Ethnicity:? White Date of : 1960 Indication: hyperparathyroidism; prior fracture; cancer; asthma or emphysema; hysterectomy; Referring Provider: PHILL SIEGEL Study: Bone densitometry was performed. Exam Date: February 27, 2024 Accession number: [id number] Bone Density: Region?BMD??? T-score? Z-score?? Classification AP Spine(L1-L4)? 0.960?? -0.8?1.0? Normal Femoral Neck (Left)? 0.733?? -1.0? 0.5? Normal Total Hip (Left)? 0.891?? -0.4? 0.8? Normal Femoral Neck (Right)? 0.727?? -1.1? 0.4? Osteopenia Total Hip (Right)? 0.882?? -0.5? 0.7? Normal Femoral Neck Mean? 0.730?? -1.1? 0.4? Osteopenia Total Hip Mean? 0.886?? -0.5? 0.8? Normal World Health Organization criteria for BMD impression classify patients as: Normal (T-score at or above -1.0), Osteopenia (T-score between -1.0 and -2.5), or Osteoporosis (T-score at or below -2.5). 10-year Fracture Risk: FRAX not reported because: ? Treated for osteoporosis Clinical Information Provided by Patient: Has had a low trauma fracture Is being treated for osteoporosis Has used the following medications: Fosamax (i.e. alendronate), Vitamin D, Calcium Has the following medical conditions: Asthma or Emphysema, Cancer, Hyperparathyroidism, Hysterectomy Patient maximum height was 62 Menopause Age: 29 Drinks caffeinated beverages Onset of menses at age 8 Number of children 2 Impression: The patient has low bone mass, based on the Right Femoral Neck T- score. The patient has risk factors, including: previous fracture. Discussion: It is important to ask patients whether they are taking their medications and to encourage continued and appropriate compliance with their osteoporosis therapies to reduce fracture risk. It is also important to review their risk factors and encourage appropriate calcium and vitamin D intakes, exercise, fall prevention and other lifestyle measures. Follow-Up: Consider a repeat BMD and Vertebral Fracture Assessment (VFA) exam in 2 years or sooner if medically necessary, to reassess this patient's status. Reported by: Dr. Art Azar on 02/28/2024 8:27:00 AM. MAKENZIE
[2024-02-27 12:21] LABS: Free T4 Free Thyroxine 0.75 ng/dL (0.76-1.46); Thyroid Stimulating Hormone 4.88 uIU/mL (0.36-3.74); Vitamin B12 1144 pg/mL (193-986)
[2024-02-29 02:49] LABS: Vitamin D 25 Hydroxy 56 ng/mL (30-100)
== END 2024-02-27 10:58 | disposition home or self-care (01) ==
LOC: CHSIMG 11:00
PROVIDERS: PCP Nurse Practitioner Family; Visit Provider Nurse Practitioner Family
DX: Z12.31 Encounter for screening mammogram for malignant neoplasm of breast (principal); E53.8 Deficiency of other specified B group vitamins; E03.9 Hypothyroidism, unspecified; Z79.899 Other long term (current) drug therapy; Z78.0 Asymptomatic menopausal state; M85.88 Other specified disorders of bone density and structure, other site
CPT/HCPCS: 36415; 77063; 77067; 77080; 82306; 82607; 84439; 84443

== ENCOUNTER 2024-03-12 10:31 | Outpatient (CLI) | payer MEDICARE, OTHER, SELFPAY ==
--- NOTE | ~2024-03-12 | XR_ITS ---
Left Shoulder Technique: AP and scapular Y views were obtained. Clinical History: Pain Findings: No fracture or dislocation is seen. Osseous alignment is anatomic. The glenohumeral and acr omioclavicular joint spaces are preserved. Soft tissues are unremarkable, aside from calcified left h ilar lymph node. Impression: Unremarkable left shoulder radiographs. Reviewed, dictated and finalized at location . Impression: Unremarkable left shoulder radiographs.
--- NOTE | ~2024-03-12 | XR_ITS ---
Cervical Spine: AP, lateral, open-mouth views Clinical History: Pain Findings: There is straightening of the normal cervical lordosis. There is 4 mm retrolisthesis of C6 over C7. There is minimal grade 1 retrolisthesis of C3 over C4. There is moderate degenerative disc n arrowing at C3-C4 and C6-C7. Pre-vertebral soft tissues are unremarkable. Impression: 4 mm retrolisthesis of C6 over C7. Minimal grade 1 retrolisthesis of C3 over C4. Degenerative spondylitic changes, as above. Reviewed, dictated and finalized at location . Impression: 4 mm retrolisthesis of C6 over C7. Minimal grade 1 retrolisthesis of C3 over C4. Degenerative spondylitic changes, as above.
== END 2024-03-12 10:32 | disposition home or self-care (01) ==
LOC: CHSIMG 10:33
PROVIDERS: PCP Nurse Practitioner Family; Visit Provider Nurse Practitioner Family
DX: M25.512 Pain in left shoulder (principal); M54.2 Cervicalgia; M43.12 Spondylolisthesis, cervical region
CPT/HCPCS: 72050; 73030

== ENCOUNTER 2024-04-12 07:28 | Outpatient (CLI) | payer MEDICARE, OTHER, SELFPAY ==
--- NOTE | ~2024-04-12 | XR_ITS ---
Clinical Indication: COPD, preoperative clearance PA and lateral views of the chest: Comparison: 05/31/2022 Findings: The lungs are clear, without evidence of focal consolidation or pleural effusion. Cardiome diastinal silhouette is within normal limits. Bones and soft tissues are unremarkable. Impression: Normal chest. Reviewed, dictated and finalized at location . Impression: Normal chest.
[2024-04-12 07:40] LABS: Basophils Absolute Auto 0.08 K/mm3 (0.00-0.10); Basophils Percent Auto 0.6 % (0.0-1.0); Eosinophils Percent Auto 5.6 % (1.0-6.0); Hematocrit 38.6 % (35.0-42.0); Hemoglobin 13.1 g/dL (11.7-13.8); Immature Granulocyte Absolute 0.05 K/mm3 (0.00-0.00); Immature Granulocyte Percent A 0.4 % (0.0-0.0); Mean Corpuscular HGB Conc 33.9 g/dL (32-36); Mean Corpuscular Volume 94.4 fL (78.0-102.0); Mean Platelet Volume 9.6 fl (9.2-11.8); Monocytes Percent Auto 10.3 % (2.0-11.0); Neutrophils Absolute Auto 7.05 K/mm3 (1.70-7.20); Neutrophils Percent Auto 56.1 % (50.0-70.0); Platelet Count Result 412 K/mm3 (150-420); Red Blood Count 4.09 M/mm3 (4.20-5.40); Red Cell Distribution Width 13.4 % (11.6-14.4); White Blood Count 12.6 K/mm3 (4.8-10.8)
--- NOTE | 2024-04-12 07:42 | ECG_ITS ---
Test Date: 2024-04-12 07:58:25 Measurements Intervals [place] Rate: 78 P: 68 ND: 161 QRS: 71 QRSD: 81 T: 46 QT: 366 QTc: 418 Interpretive Statements SINUS RHYTHM NORMAL ELECTROCARDIOGRAM No previous ECG available for comparison Electronically Signed On 04-16-2024 14:40:28 CDT by Augustus Roper M.D.
[2024-04-12 07:44] LABS: Add Urine Microscopic? NO; Appearance Urine Clear (Clear); Bilirubin Urine Negative (Negative); Blood Urine Negative (Negative); Color Urine Light Yellow (Yellow); Glucose Urine UA Negative (Negative); Ketones Urine Negative (Negative); Leukocyte Esterase Ur Negative LEU/UL (Negative); Nitrate Urine Negative (Negative); Protein Urine Negative (Negative); Urobilinogen Urine 0.2 mg/dL (0.2-1.0)
[2024-04-12 08:52] LABS: Alanine Aminotransferase 28 U/L (14-59); Albumin Level 4.2 g/dL (3.4-5.0); Alkaline Phosphatase 80 U/L (46-116); Anion Gap 9 mmol/L (4-12); Aspartate Amino Transferase 22 U/L (15-37); Bilirubin,Total 0.5 mg/dL (0.00-1.00); Blood Urea Nitrogen 18 mg/dL (7-18); Calcium 9.5 mg/dL (8.5-10.1); Carbon Dioxide 30 mmol/L (21-32); Chloride 103 mmol/L (98-108); Estimated Glomerular Filt Rate > 60; Glucose 96 mg/dL (70-99); Osmolality Calculated 295 mOsm/kg (285-295); Potassium 5.5 mmol/L (3.5-5.1); Sodium 142 mmol/L (136-145)
[2024-04-16 09:54] LABS: Free T4 Free Thyroxine 1.01 ng/dL (0.76-1.46); Thyroid Stimulating Hormone 8.68 uIU/mL (0.36-3.74)
== END 2024-04-12 07:29 | disposition home or self-care (01) ==
LOC: CHSLAB 07:30
PROVIDERS: PCP Nurse Practitioner Family; Visit Provider Nurse Practitioner Family
DX: Z01.818 Encounter for other preprocedural examination (principal); Z87.898 Personal history of other specified conditions; E03.9 Hypothyroidism, unspecified
CPT/HCPCS: 36415; 71046; 80053; 81003; 84439; 84443; 85025; 93005

== ENCOUNTER 2024-05-17 10:03 | Outpatient (CLI) | payer MEDICARE, SELFPAY ==
[2024-05-17 10:21] LABS: Basophils Absolute Auto 0.09 K/mm3 (0.00-0.10); Basophils Percent Auto 0.7 % (0.0-1.0); Eosinophils Absolute Auto 0.25 K/mm3 (0.02-0.50); Hematocrit 39.1 % (35.0-42.0); Hemoglobin 13.4 g/dL (11.7-13.8); Immature Granulocyte Absolute 0.07 K/mm3 (0.00-0.00); Immature Granulocyte Percent A 0.6 % (0.0-0.0); Lymphocytes Absolute Auto 4.06 K/mm3 (1.10-4.50); Lymphocytes Percent Auto 32.4 % (18.0-42.0); Mean Corpuscular HGB Conc 34.3 g/dL (32-36); Mean Corpuscular Volume 96.3 fL (78.0-102.0); Mean Platelet Volume 9.4 fl (9.2-11.8); Monocytes Absolute Auto 1.14 K/mm3 (0.10-0.90); Monocytes Percent Auto 9.1 % (2.0-11.0); Neutrophils Absolute Auto 6.94 K/mm3 (1.70-7.20); Neutrophils Percent Auto 55.2 % (50.0-70.0); Platelet Count Result 457 K/mm3 (150-420); Red Blood Count 4.06 M/mm3 (4.20-5.40); Red Cell Distribution Width 14.2 % (11.6-14.4); White Blood Count 12.6 K/mm3 (4.8-10.8)
[2024-05-17 10:45] LABS: Add Urine Microscopic? NO; Appearance Urine Clear (Clear); Bilirubin Urine Negative (Negative); Blood Urine Negative (Negative); Color Urine Yellow (Yellow); Glucose Urine UA Negative (Negative); Ketones Urine Negative (Negative); Leukocyte Esterase Ur Negative LEU/UL (Negative); Nitrate Urine Negative (Negative); Protein Urine Negative (Negative); Urobilinogen Urine Normal mg/dL (0.2-1.0)
[2024-05-17 17:17] LABS: Alanine Aminotransferase 22 U/L (14-59); Albumin Level 4.3 g/dL (3.4-5.0); Alkaline Phosphatase 75 U/L (46-116); Anion Gap 9 mmol/L (4-12); Aspartate Amino Transferase 19 U/L (15-37); Bilirubin,Total 0.3 mg/dL (0.00-1.00); Blood Urea Nitrogen 12 mg/dL (7-18); Calcium 9.8 mg/dL (8.5-10.1); Carbon Dioxide 28 mmol/L (21-32); Chloride 103 mmol/L (98-108); Estimated Glomerular Filt Rate > 60; Glucose 92 mg/dL (70-99); Osmolality Calculated 289 mOsm/kg (285-295); Sodium 140 mmol/L (136-145); Total Protein 7.5 g/dL (6.4-8.2)
== END 2024-05-17 10:04 | disposition home or self-care (01) ==
LOC: CHSLAB 10:07
PROVIDERS: PCP Nurse Practitioner Family; Visit Provider Nurse Practitioner Family
DX: Z01.818 Encounter for other preprocedural examination (principal); Z87.898 Personal history of other specified conditions
CPT/HCPCS: 36415; 80053; 81003; 85025

== ENCOUNTER 2024-06-25 10:09 | Outpatient (CLI) | payer MEDICARE, SELFPAY ==
[2024-06-25 10:52] LABS: INR 0.9; Partial Thromboplastin Time 28.7 Sec (23.9-30.70); Prothrombin Time 10.3 Seconds (9.50-12.1)
[2024-06-25 11:28] LABS: Free T4 Free Thyroxine 1.15 ng/dL (0.76-1.46); Thyroid Stimulating Hormone 0.16 uIU/mL (0.36-3.74)
== END 2024-06-25 10:10 | disposition home or self-care (01) ==
LOC: CHSLAB 10:10
PROVIDERS: PCP Nurse Practitioner Family; Visit Provider Nurse Practitioner Family
DX: Z01.818 Encounter for other preprocedural examination (principal); Z79.01 Long term (current) use of anticoagulants; E03.9 Hypothyroidism, unspecified
CPT/HCPCS: 36415; 84439; 84443; 85610; 85730

== ENCOUNTER 2024-09-13 10:36 | Outpatient (CLI) | payer MEDICARE, OTHER, SELFPAY ==
--- NOTE | ~2024-09-13 | XR_ITS ---
CHEST RADIOGRAPH, PA AND LATERAL CLINICAL HISTORY: R05.9 - Cough, unspecified . COMPARISON: 04/12/2024 TECHNIQUE: PA and lateral views of the chest. FINDINGS The cardiomediastinal silhouette is unremarkable. Interval development of a small right-sided pleural effusion compared with previous examination. The lungs are clear. Visualized osseous structures and soft tissues are unremarkable. IMPRESSION: Small right-sided pleural effusion without focal infiltrate. Reviewed, dictated and finalized at location A. L
--- NOTE | 2024-09-13 10:54 | ECG_ITS ---
Test Date: 2024-09-13 11:10:27 Measurements Intervals [place] Rate: 125 P: 79 DC: 145 QRS: 76 QRSD: 80 T: 71 QT: 336 QTc: 486 Interpretive Statements SINUS TACHYCARDIA NONSPECIFIC T-WAVE ABNORMALITY ABNORMAL RHYTHM ECG Compared to ECG 04/12/2024 07:58:25 T-wave abnormality now present Electronically Signed On 09-14-2024 16:15:09 [employer]OL DESIGN ENGINEER by Rober Pratt M.D.
[2024-09-13 10:57] LABS: Hematocrit 42.1 % (35.0-42.0); Hemoglobin 14.7 g/dL (11.7-13.8); Immature Platelet Fraction Pct 3.5 % (1.0-7.0); Mean Corpuscular HGB Conc 34.9 g/dL (32-36); Mean Corpuscular Hemoglobin 31.4 pg (27.0-31.0); Platelet Count Result 591 K/mm3 (150-420); Red Blood Count 4.68 M/mm3 (4.20-5.40); Red Cell Distribution Width 12.7 % (11.6-14.4)
[2024-09-13 11:04] LABS: White Blood Count 26.2 K/mm3 (4.8-10.8)
[2024-09-13 11:36] LABS: SARS-CoV-2 RNA PCR Negative (Negative)
[2024-09-13 11:38] LABS: Band Neutrophils Percent 0 % (0-6); Basophils Absolute Manual 0.26 K/mm3 (0-0.1); Basophils Percent Manual 1 % (0-1); Eosinophils Absolute Manual 0.26 K/mm3 (0.02-0.50); Eosinophils Percent Manual 1 % (1-6); Lymphocytes Absolute Manual 6.02 K/mm3 (1.1-4.5); Lymphocytes Percent Manual 23 % (18-44); Monocytes Percent Manual 13 % (3-9); Neutrophils Absolute Manual 16.24 K/mm3 (1.7-7.2); Neutrophils Percent Manual 62 % (46-73); Platelet Estimate Increased (Adequate); Total Cells Counted 100
[2024-09-13 11:40] LABS: Influenza A QL RT-PCR Negative (Negative); Influenza B QL RT-PCR Negative (Negative); RSV RNA, RT-PCR Negative (Negative)
[2024-09-13 11:53] LABS: Alanine Aminotransferase 22 U/L (14-59); Alkaline Phosphatase 116 U/L (46-116); Anion Gap 13 mmol/L (4-12); Aspartate Amino Transferase 13 U/L (15-37); Bilirubin,Total 0.4 mg/dL (0.00-1.00); Blood Urea Nitrogen 10 mg/dL (7-18); Calcium 10.4 mg/dL (8.5-10.1); Carbon Dioxide 26 mmol/L (21-32); Chloride 98 mmol/L (98-108); Estimated Glomerular Filt Rate > 60; Free T4 Free Thyroxine 1.57 ng/dL (0.76-1.46); Glucose 99 mg/dL (70-99); Iron 18 ug/dL (50-170); Osmolality Calculated 283 mOsm/kg (285-295); Potassium 4.8 mmol/L (3.5-5.1); Sodium 137 mmol/L (136-145); Thyroid Stimulating Hormone 0.56 uIU/mL (0.36-3.74); Total Protein 7.3 g/dL (6.4-8.2)
[2024-09-14 06:58] LABS: Total Triiodothyronine (T3) 109 ng/dL (76-181)
== END 2024-09-13 10:37 | disposition home or self-care (01) ==
PROVIDERS: PCP Nurse Practitioner Family; Visit Provider Nurse Practitioner Family
DX: E03.9 Hypothyroidism, unspecified (principal); R00.0 Tachycardia, unspecified; R79.89 Other specified abnormal findings of blood chemistry; R06.02 Shortness of breath; R05.9 Cough, unspecified; E61.1 Iron deficiency; Z11.52 Encounter for screening for COVID-19
CPT/HCPCS: 36415; 71046; 80053; 83540; 84439; 84443; 84480; 85025; 85055; 87637; 93005

== ENCOUNTER 2024-10-03 08:53 | Outpatient (CLI) | payer MEDICARE, OTHER, SELFPAY ==
[2024-10-03 09:12] VITALS: BP 101/73; PULSE 92; RESP 18; O2SAT 95
--- OUTSIDE RECORDS SUMMARY | 2024-10-03 09:22 | XMS_ITS | Data Portability ---
Author Organization [facility], [address] ([place]) Address [address] 4th [place] [address] Care Team Providers Care Outreach Liaison Name Role Phone LOU SIEGEL Primary Care Provider LOU SIEGEL Referring Provider Assessment Encounter Date Assessment Date Assessment LastModified by Organization Details LastModified Time 03/22/2024 03/22/2024 In summary, this 64 year old with a PMH of asthma/COPD, GERD, hypothyroidism, + smoker presents with 2.5 months worth of neck and left upper extremity radiculopathy. She has no advanced imaging for review; XR cervical spine completed by PCP shows degenerative changes at multiple levels. Physical exam is consistent with brisk patellar reflexes but negative Romberg. Conservatively, she has found some relief with OTC Tylenol/Ibuprofen and muscle relaxers. She is scheduled to start physical therapy in one month. I recommend MRI of the cervical spine without contrast- I will see her immediately following to review the results and discuss further plan of care. If non-surgical, I recommend that she go ahead with PT as planned and continue conservative measures such as massage, stretching etc. With her significant shoulder pain, it may also be worthwhile to be evaluated by an him specialist. Thank you for allowing us to participate in this patient's care. [email or web address] Not available 03/22/2024 11:02:45 04/05/2024 04/05/2024 In summary, this 64 year old with a PMH of hypothyroidism, osteopenia, COPD/asthma, + smoker, HLD, prior right carpal tunnel surgery, and GERD who presented to clinic today for review of a same day MRI of the cervical spine to further evaluate pain in her neck and left shoulder. Conservatively, she has found some relief with OTC Tylenol/Ibuprofen and muscle relaxers and is scheduled to start physical therapy in this month. The pain is worst in the left shoulder which she reports feels as though it is in a vice manager of selection and assessment. She also reports intermittent radiating (shooting) pain into the arm and down to the last 4 fingers of the left hand (Patient is right handed). She reports 4-5 years worth of mild weakness in the left arm as well as intermittent difficulty with fine motor tasks, which she states is chronic and not worsening. Denies ataxia and frequent falls. Reports increased issues with bladder urgency as well as some incontinence over the past year. Denies bowel disturbance. She has been taking OTC tylenol and Ibuprofen, as well as cyclobenzaprine. XR imaging of the cervical spine was obtained showing 4mm retrolisthesis of C6 over C7. Minimal grade 1 retrolisthesis of C3 over C4. Mrs. Shore presents to clinic today with same day MRI imaging of he cervical spine for review. The MRI was not yet read by the radiologist at the time of her appointment but was reviewed by myself as well as with Dr. Phelan and demonstrated a moderate to large disc herniation at C3-4 with severe foraminal stenosis on the left and moderate on the right as well as mild to moderate central canal stenosis at C5-6 and moderate to severe spinal canal stenosis at C6-7 with severe bilateral neuroforaminal stenosis at that level. Based on imaging there was also some concern for instability at C6-7 given the degree of significant degenerative changes at that level. There was initially discussion of potential need for intervention in the form of C5-6 C6-7 ACDF however after further in depth discussion with the patient and physical exam it became evident that this patient primary issue currently was C3-4 given the severe pain in her neck and left shoulder with occasional radiation down the arm but not frequently. She denies ataxia, falls, apraxia, new numbness, tingling, or weakness, and new or worsening bowel or bladder incontinence. On exam she was noted to have some mild weakness in the left arm which seemed to be giveaway weakness secondary to pain. Strength exam was consistent with 4+/5 in left deltoid, tricep, and bicep. Otherwise strength was 5/5. Gait was slow and steady. Romberg negative In principle, I feel that this patient would benefit from operative intervention in the form of C3-4 ACDF. Details of the procedure as well as risks and benefits were reviewed including but not limited to bleeding, infection, new pain or neurologic deficit, unresolved pain, spinal fluid leak, development of adjacent segment disease in the coming years/ need for further surgery, and even . The patient expressed understanding of these risks and has elected to move forward with the operation. [email or web address] Not available 04/09/2024 21:14:06 04/24/2024 04/24/2024 In summary, this 64 year old with a PMH of hypothyroidism, osteopenia, COPD/asthma, + smoker, HLD, prior right carpal tunnel surgery, and GERD was last seen by Farideh Stevenson on 04/05/2024 for review of a same day MRI of the cervical spine to further evaluate pain in her neck and left shoulder. Conservatively, she had found some relief with OTC Tylenol/Ibuprofen and muscle relaxers and was scheduled to start physical therapy in this month. The pain was worst in the left shoulder which she reported felt as though it was in a vice manager of selection and assessment. She also reported intermittent radiating (shooting) pain into the arm and down to the last 4 fingers of the left hand (Patient is right handed). She reported 4-5 years worth of mild weakness in the left arm as well as intermittent difficulty with fine motor tasks, which she stated was chronic and not worsening. Denied ataxia and frequent falls. Reported increased issues with bladder urgency as well as some incontinence over the past year. Denied bowel disturbance. She had been taking OTC tylenol and Ibuprofen, as well as cyclobenzaprine. XR imaging of the cervical spine was obtained showing 4mm retrolisthesis of C6 over C7. Minimal grade 1 retrolisthesis of C3 over C4. Mrs. Shore presented to clinic with same day MRI imaging of the cervical spine for review. The MRI was not yet read by the radiologist at the time of her appointment but was reviewed by myself as well as with Dr. Phelan and demonstrated a moderate to large disc herniation at C3-4 with severe foraminal stenosis on the left and moderate on the right as well as mild to moderate central canal stenosis at C5-6 and moderate to severe spinal canal stenosis at C6-7 with severe bilateral neuroforaminal stenosis at that level. Based on imaging there was also some concern for instability at C6-7 given the degree of significant degenerative changes at that level. There was initially discussion of potential need for intervention in the form of C5-6 C6-7 ACDF however after further in depth discussion with the patient and physical exam it became evident that this patient primary issue currently was C3-4 given the severe pain in her neck and left shoulder with occasional radiation down the arm but not frequently. She denied ataxia, falls, apraxia, new numbness, tingling, or weakness, and new or worsening bowel or bladder incontinence. On exam she was noted to have some mild weakness in the left arm which seemed to be giveaway weakness secondary to pain. Strength exam was consistent with 4+/5 in left deltoid, tricep, and bicep. Otherwise strength was 5/5. Gait was slow and steady. Romberg negative In principle, I felt that this patient would benefit from operative intervention in the form of C3-4 ACDF. Details of the procedure as well as risks and benefits were reviewed including but not limited to bleeding, infection, new pain or neurologic deficit, unresolved pain, spinal fluid leak, development of adjacent segment disease in the coming years/ need for further surgery, and even . The patient expressed understanding of these risks and had elected to move forward with the operation. The patient comes in today with additional questions prior to surgery, which we answered to the best of our abilities. Thank you for allowing us to participate in this patient's care. [email or web address] Not available 04/24/2024 16:14:39 06/14/2024 06/14/2024 In summary, this 64 year old with a PMH of hypothyroidism, osteopenia, COPD/asthma, + smoker, HLD, prior right carpal tunnel surgery, and GERD originally presented to neurosurgery clinic with left shoulder pain, intermittent radiating pain, apraxia. MRI of the cervical spine showed large disc herniation at C3-4 on the left causing severe proximal neuroforaminal stenosis. She is now two weeks s/p C3-4- ACDF on 05/28/[address] Phelan. She was sent to the ED on 05/[address] soft tissue showed some swelling- she was discharged with prednisone and instructions to complete her post op antibiotics. Today, she is doing much better. She is pleased with the results of surgery. Her shoulder pain is gone, her cervical range of motion is improved. She even states her incontinence is better. She has a mild headache. She denies fever, chills, drainage. The swallowing has improved. Her only new symptoms is burning in the right thumb. She has been participating in physical therapy. She states that tizanidine does not work as well as Flexeril, so she plans to go back to Flexeril at night. She is no longer taking hydrocodone. On exam, she is happy. Her surgical incision is healing well, there is some residual Dermabond along the incision line. She still has hematoma beneath the incision, but compared to previous pictures it is much improved. Strength is 5 out of 5 bilateral upper extremities. Romberg is negative. At this point, increase activities as tolerated without lifting greater than 20 pounds. She is clear to resume driving as long as she is not taking the narcotic pain medication. OK to wash the incision lightly with mild soap and water, as well as peroxide twice daily. She can use the mupirocin ointment along the incision line as well. Notify the clinic with any fever, drainage, dehiscence, increased pain, need for refills etc. Follow up at 6 weeks post op for clinical re-evaluation. Contact the clinic with any questions or concerns. Thank you for allowing us to participate in this patient's care. Not available 06/14/2024 10:41:44 07/12/2024 07/12/2024 In summary, this 64 year old with a PMH of hypothyroidism, osteopenia, COPD/asthma, + smoker, HLD, prior right carpal tunnel surgery, and GERD six weeks status post C3-4 ACDF for left shoulder pain, intermittent radiating pain and apraxia returns for routine follow up. She describes complete resolution of her preoperative symptoms, but has some residual numbness in her right thumb. Cervical incision is completely healed. Strength is 5/5 in the bilateral upper extremities. Romberg is negative. Overall, I am pleased with this patient's recovery from surgery. I look forward to her three month follow up with AP lateral views of the cervical spine. Thank you for allowing us to participate in this patient's care. [email or web address] Not available 07/12/2024 11:49:28 Plan of Treatment Reminders Order Date Submit Date Provider Last Modified By Organization Details Last Modified Time Details Appointments Establis [facility] Patient 15.EST 2024 09:00A M Destiny Odom Not available Not available Not available Lab None recorded . Referral None recorded . Procedures None recorded . Surgeries None recorded . Imaging MRI, cervical spine, w/o contrast 2023 024 [facility], [address] [place] [address], [id number], 04/05/2024 15:31:08 Medication Orders None recorded . Patient TargetsNo targets recorded. Patient InstructionsNo instructions recorded. Reason for Referral None Reported. Results Created Date Observation Date Name Description Value Unit Range Abnormal Flag Note LastModifiedBy Organization Detail LastModifiedTime 04/05/20 24 04/05/2024 MRI, cervi chantelle spine , w/o contr ast [address] [address] Teleph one Name: Jyotsna Sellers [id number] am Date: 2023 Age: 64Phys ician: Edmond n, CONCRETE PRECAST MOULDER, Stepjanet lorna : 1959Ex aminat ion: MRI CERVIC AL WO CONTRA ST Examin ation: Cervic al spine MRI withou t contra st INDICA TION:N roberta pain with left upper extrem ity radicu lopath y for 3 months COMPAR GABBY:N one availa ble TECHNI QUE:T1 -weigh gerardo and T2-dilan ghted images along with axial gradie nt echo images . Centra l spinal canal stenos is is primar vijay assess ed on the sagitt al T2-dilan ghted images , as under most circum stance s these are the most anatom ically accura te FINDIN GS: Alignm ent:Mi ld retrol isthes is at C6-7. Verteb ra:Vick tebral body height is well mainta ined. Normal -appea ring marrow . Discs: Modera te narrow ing at C6-7. Mild narrow ing at C3-4. Hardwa re:Non e in the spine. Cord:N ormal in size and signal intens ity. Indivi dual levels : C1-2:N o signif icant spinal canal stenos is. C2-3:N o signif icant spinal canal or neurof oramin al stenos is. C3-4:L arge left garland maker olater al disc extrus ion causin g severe proxim al left neurof oramin al stenos is but not direct ly contac ting the cord. Centra l spinal canal is widely patent . There is also severe right neurof oramin al stenos is but this predom inantl y from uncove rtebra l and facet arthro carlos. There may be a small compon ent of disc protru mariam toward the forame n as well. C4-5:N o signif icant spinal canal or neurof oramin al stenos is. C5-6:M ild diffus e disc bulge result ing in mild to modera te spinal canal stenos is. Disc bulge slight ly contac ts the ventra l cord. C6-7:M oderat e to severe spinal canal stenos is from thicke willie of ligame ntum flavum which contac ts the dorsal cord and disc bulge contac ts the ventra l cord. Severe bilate ral neurof oramin al stenos is from disc bulge with endpla te osteop hyte. C7-T1: No signif icant spinal canal or neurof oramin al stenos is. Base of brain: No signif icant abnorm ality. Soft tissue s:No signif icant abnorm ality. Upper thorac ic:No signif icant abnorm ality. Other: No other signif icant abnorm ality. IMPRES MARIAM: 1. Modera te to large left garland maker olater al disc extrus ion at C3-4 causin g severe proxim al left neurof oramin al stenos is. 2. Modera te to severe spondy lytic spinal canal stenos is at C6-7 from a combin ation of disc bulge, endpla te osteop hyte, retrol isthes is, and thicke willie of ligame ntum flavum . Also, severe bilate ral degene rative neurof oramin al stenos is at this level. Electr onical ly signed in [place] cribe by: CL HELTON MD on:8/1 /2024 2:28 PM cc: Page PAGE 1 of ALYSSA ES 1 [email or web address] [address] [place] [address], [id number], 04/09/2024 10:26:51 08/22/20 24 04/12/2024 yola meyergr am, routi ne ECG, 12 leads min; inter preta tion and repor t (PROC ) No observ ation record ed. [email or web address] Not Available 08/23/2024 21:07:02 Result Notes None recorded. Problems Name Problem SNOMED Code Status Onset Date Resolution Date Notes Provider Name and Address Organization Details Recorded Time Cervical radiculopathy 68895899 Active 2023 Audrey Stevenson APRN, [employer] [address] [place] [address], [phone] , [facility] 4 21:16:13 Cervical spondylosis 605257249 Active 2023 Destiny Odom APRN, [employer] [address] [place] [address], [phone] , [facility] 4 13:45:38 Notes:Some problems listed i n Document: #[id number] could not be added to this patient's chart. Please review this document and add these problems to the patient's chart manually as needed. Problem Notes None recorded. Procedures Surgical History Date Name Laterality Status Provider Name and Address Organization Details Recorded Time 02/27/20 24 Date of Last Mammogram completed Not Available Health Note 03/29/2024 14:53:52 02/22/19 84 Date of Last Pap Smear completed Not Available Health Note 03/29/2024 14:53:52 Colonoscopy with biopsy completed Not Available Health Note 03/15/2024 11:26:53 Partial hysterectomy completed Not Available Health Note 03/15/2024 11:26:53 Removal of tonsils completed Not Available Health Note 03/15/2024 11:26:53 Imaging Results Imaging Date Name Status LastModified by Organization Details LastModified Time 04/05/2024 MRI, cervical spine, w/o contrast completed [email or web address] [address] [place] [address], [id number], 04/09/2024 10:26:51 04/12/2024 electrocardiogram, routine ECG, 12 leads min; interpretation and report (PROC) completed [email or web address] Information not available 08/23/2024 21:07:02 Procedure Notes None recorded. Medical Equipment None Reported. Allergies Allergen ID Allergen Name Allergen Category Reaction Reaction Severity Criticality Documentation Date Start Date Code Code System Note Provider Name and Address Organization Details Recorded Time [id number] fexofenad ine medicatio n Not available Not available Not available 10/03/20232021 91986 RxNorm Not Available Not Available Not Available [id number] 2824e Product containin g penicilli n and antibioti c (product) medicatio n Not available Not available Not available 10/03/20232021 49361 05 SNOMED Not Available Not Available Not Available Medications Name Sig Start Date Stop Date Status Note LastModified by Organization Details LastModified Time cyclobenzap rine 10 mg tablet TAKE 1 TABLET BY MOUTH AT BEDTIME NEEDED FOR MUSCLE SPASM active Not Available Not Available No t Available azithromyci n 250 mg tablet TAKE 2 TABLETS BY MOUTH ON DAY 1, AND THEN TAKE 1 TABLET BY MOUTH ONCE A DAY ON DAY 2 THROUGH DAY 5 04/05 completed Not Available Not Available Not Available tizanidine 4 mg tablet TAKE 1 TABLET BY MOUTH EVERY 8 HOURS 07/12 completed Not Available Not Available Not Available benzonatate 200 mg capsule TAKE 1 CAPSULE BY MOUTH TWICE DAILY NEEDED FOR COUGH 07/12 completed Not Available Not Available Not Available prednisone 20 mg tablet 07/12 completed Not Available Not Available Not Available alendronate 70 mg tablet TAKE 1 TABLET BY MOUTH WEEKLY active Not Available Not Available No t Available tramadol 50 mg tablet TAKE 1 TABLET BY MOUTH EVERY 6 HOURS NEEDED FOR PAIN 07/12 completed Not Available Not Available Not Available levothyroxi ne 100 mcg tablet TAKE 1 TABLET BY MOUTH DAILY 07/12 completed Not Available Not Available Not Available levothyroxi ne 88 mcg tablet TAKE 1 TABLET BY MOUTH DAILY 07/12 completed Not Available Not Available Not Available hydrocodone 7.5 mg-acetamin ophen 325 mg tablet TAKE 1 TABLET BY MOUTH EVERY 6 HOURS NEEDED FOR PAIN 07/12 completed Not Available Not Available Not Available cephalexin 500 mg capsule TAKE 1 CAPSULE BY MOUTH THREE TIMES DAILY FOR 3 DAYS active Not Available Not Available No t Available prednisone 50 mg tablet TAKE 1 TABLET BY MOUTH ONCE DAILY 04/05 completed Not Available Not Available Not Available omeprazole 20 mg capsule,del ayed release TAKE 1 CAPSULE BY MOUTH DAILY active Not Available Not Available No t Available montelukast 10 mg tablet TAKE 1 TABLET BY MOUTH DAILY active Not Available Not Available No t Available mupirocin 2 % topical ointment APPLY A SMALL AMOUNT TO EACH NOSTRIL TWICE DAILY FOR THE 5 DAYS PRIOR TO SURGERY 07/12 completed Not Available Not Available Not Available azelastine 137 mcg (0.1 %) nasal spray USE 2 SPRAYS IN EACH NOSTRIL EVERY 12 HOURS active Not Available Not Available No t Available duloxetine 60 mg capsule,del ayed release TAKE 1 CAPSULE BY MOUTH DAILY active Not Available Not Available No t Available levothyroxi ne 100 mcg capsule active Not Available Not Available Not Available Trelegy Ellipta 100 mcg-62.5 mcg-25 mcg powder for inhalation USE 1 INHALATIO N EVERY DAY active Not Available Not Available No t Available Vitals Date Recorded Body weight Provider Name an d Address Organization Details Last Updated DateTime 03/22/2024 44860.85 g [facility] 03/22/2024 10:34:56 Date Recorded Heart rate Provider Name an d Address Organization Details Last Updated DateTime 03/22/2024 94 /min [facility] 03/22/2024 10:35:08 Date Recorded Oxygen saturation Oxygen saturation in Arterial blood by Pulse oximetry Provider Name and Address Organization Details Last Updated DateTime 03/22/2024 95 % 95 % [facility] 03/22/2024 10:35:12 Date Recorded Heart rate Provider Name an d Address Organization Details Last Updated DateTime 04/05/2024 65 /min Mayte Banerjee [facility] 04/05/2024 14:52:18 Date Recorded Oxygen saturation Oxygen saturation in Arterial blood by Pulse oximetry Provider Name and Address Organization Details Last Updated DateTime 04/05/2024 99 % 99 % Mayte Banerjee [facility] 04/05/2024 14:52:28 Date Recorded Body weight Provider Name an d Address Organization Details Last Updated DateTime 06/14/[address] [facility] 06/14/2024 09:58:49 Date Recorded Oxygen saturation Oxygen saturation in Arterial blood by Pulse oximetry Provider Name and Address Organization Details Last Updated DateTime 06/14/2024 97 % 97 % Yulisa Mellette [facility] 06/14/2024 09:58:26 Date Recorded Heart rate Provider Name an d Address Organization Details Last Updated DateTime 06/14/2024 55 /min Yulisa Mellette [facility] 06/14/2024 09:58:31 Date Recorded Body weight Provider Name an d Address Organization Details Last Updated DateTime 07/12/2024 91844.45 g [facility] 11:34:15 Date Recorded Oxygen saturation Oxygen saturation in Arterial blood by Pulse oximetry Provider Name and Address Organization Details Last Updated DateTime 07/12/2024 97 % 97 % [facility] 11:35:02 Date Recorded Heart rate Provider Name an d Address Organization Details Last Updated DateTime 07/12/2024 108 /min [facility]12[facility] 11:35:07 Date Recorded Systolic blood pressure Diastolic blood pressure Provider Name and Address Organization Details Last Updated DateTime 03/22/2024 128 mm[Hg] 80 mm[Hg] Yulisa Mellette [facility] 03/22/2024 10:35:05 Date Recorded Systolic blood pressure Diastolic blood pressure Provider Name and Address Organization Details Last Updated DateTime 04/05/2024 136 mm[Hg] 84 mm[Hg] [facility] 14:52:12 Date Recorded Systolic blood pressure Diastolic blood pressure Provider Name and Address Organization Details Last Updated DateTime 06/14/2024 120 mm[Hg] 78 mm[Hg] Yulisa [facility] 06/14/2024 09:59:17 Date Recorded Systolic blood pressure Diastolic blood pressure Provider Name and Address Organization Details Last Updated DateTime 07/12/2024 118 mm[Hg] 78 mm[Hg] Mayte Banerjee [facility] 07/12/2024 11:34:27 Social History Question Answer Notes LastModified by Organizat ion Details LastModified Time Do You Have An Advance Directive? Yes [email or web address] Information not available 03/29/2024 What Is Your Level Of Alcohol Consumption? Occasional [email or web address] Information not available 03/29/2024 How Many Times Per Week Do You Consume Alcohol? Less Than 1 Time Per Week [email or web address] Information not available 03/29/2024 What Is Your Level Of Caffeine Consumption? Heavy [email or web address] Information not available 03/29/2024 What Is Your Code Status? DNR [email or web address] Information not available 03/29/2024 Are You Currently Employed? No [email or web address] Information not available 03/29/2024 Which Illicit Or Recreational Drugs Have You Used? Marijuana [email or web address] Information not available 03/29/2024 What Is Your Occupation? Retired [email or web address] Information not available 03/29/2024 How Many Times Per Week Do You Exercise? 1-2 Times Per Week [email or web address] Information not available 03/29/2024 How Many Packs Per Day (PPD)? 1/4 Pack Per Day [email or web address] Information not available 03/15/2024 How Long Have You Smoked? 50 Year [email or web address] Information not available 03/15/2024 When Did You Quit Smoking? 09/22/2023 [email or web address] Information not available 03/29/2024 Do You Have A Medical Power Of Accounting Methods Analyst? Yes [email or web address] Information not available 03/29/2024 What Was The Date Of Your Most Recent Tobacco Screening? 04/05/2024 [email or web address] Information not available 03/29/2024 What Is Your Relationship Status? [email or web address] Information not available 03/29/2024 Do You Use Any Illicit Or Recreational Drugs? Yes [email or web address] Information not available 03/29/2024 Sex: Unknown Functional Status Question Answer Note LastModified by Organization D etails LastModified Time What is your exercise level? Moderate [email or web address] Information not available 03/29/2024 Mental Status None recorded. Family History Relationship Description Onset Age of this Age Resolved Age Notes LastModified by Organization Details LastModified Time Mother Arthritis [email or web address] Not available 03/15/2024 11:26:51 Mother Asthma [email or web address] Not available 11:26:51 Mother Hypertensive disorder [email or web address] Not available 2023 11:26:51 Mother Osteoporosis [email or web address] Not availa ble 03/15/2024 11:26:51 Mother Cerebrovascu lar accident [email or web address] Not available 07/2024 11:26:51 Mother Heart disease [email or web address] Not available 2023 15:31:12 Father Arthritis [email or web address] Not available 03/15/2024 11:26:51 Father Asthma [email or web address] Not available 11:26:51 Father Chronic obstructive pulmonary disease [email or web address] Not available 2023 11:26:51 Father Heart disease [email or web address] Not available 2023 11:26:51 Father Hypercholest erolemia [email or web address] Not available 2023 11:26:51 Father Cerebrovascu lar accident [email or web address] Not available 07/2024 11:26:51 Father Hypertensive disorder [email or web address] Not available 2023 14:53:48 Maternal Grandmother Arthritis [email or web address] Not available 03/05 11:26:51 Maternal Grandmother Family history of malignant neoplasm [email or web address] Not available 2023 11:26:51 Unspecified Relation Disorder of thyroid gland [email or web address] Not available 2023 11:26:51 Brother Hypercholest erolemia [email or web address] Not available 2023 14:53:48 Medical History Condition Response Diabetes N Anxiety Disorder Y Bleeding Disorder N Attention-deficit Hyperactivity Disorder N High Blood Pressure N Arthritis Y Hyperlipidemia N Cancer N Stroke N Thyroid Problems Y Asthma Y Depression N COPD Y Anemia N Seizures N Heart Disease N Fibromyalgia N Osteoporosis N Kidney Disease N Gynecological History Statement/Question Response Abnormal Pap Y If Post Menopausal, Age at Menopause 24 Date of Last Pap Smear 02/23/1984 Age at Menarche 8 Date of Last Mammogram 02/27/2024 Obstetrics History GPAL:G 0 P 0 0 0 0 Past Encounters Encounter ID Performer Location Encounter Start Date Encounter Closed Date Diagnosis/Indication Diagnosis SNOMED-CT Code Diagnosis ICD10 Code Diagnosis Note [id number] Estela guajardo MD [address] [address] [place] [address] 03/22/2024 10:19:20 03/22/2024 11:32:17 Cervical spondylosis 363836334 M47.370 [id number] Estela guajardo MD [address] [facility] [place] [address] [place] [address] 04/05/2024 14:24:03 04/05/2024 17:53:51 Cervical spondylosis 989084194 M47.812 Cervical radiculopathy [id number] M54.12 [id number] Mayte Lavonne [address] [facility] [place] [address] [place] [address] 04/24/2024 15:25:42 04/24/2024 16:51:52 Cervical spondylosis [id number] M47.812 [id number] Estela guajardo MD [address] [facility] [place] [address] [place] [address] 06/14/2024 09:40:51 06/14/2024 16:15:18 Cervical radiculopathy [id number] M54.12 [id number] Estela guajardo MD [address] [facility] [address] [place] [address] 07/12/2024 11:20:58 07/12/2024 11:43:57 Cervical spondylosis [id number] M47.812 Health Concerns Section Related Observation LastModified by Organization Detai ls LastModified Time None Recorded Concern Status LastModified by Organization Details LastModified Time None Recorded Advance Directives Directive Y: Payers Encounter Date Sequence Insurance Name Policy Number Policy Hawkins Covered Member ID Hawkins Member ID Guarantor Name 03/22/2024 1 [place] Alva Shore [id number] 1 Alva Shore 04/05/2024 1 [place] Alva Shore [id number] 1 Alva Shore 04/24/2024 1 [place]va Shore [id number] 1 Alva Shore 06/14/2024 1 [place] Alva Shore [id number] 1 Alva Shore 06/14/2024 2 [employer] [place] (MEDICARE SUPPLEMENT[place] Alva Shroe [id number] Alva Shore 07/12/2024 1 [place] Alva Shore [id number] 1 Alva Shore 07/12/2024 2 [employer] [place] (MEDICARE SUPPLEMENT) Alva Shore [id number] Alva Shore Notes Date Note Type Note Provider Name and Address Organization Details Recorded Time 4 text/html Alva Shore is a 64 year old female referred by Dr. Lou Siegel for cervical spondylosis. She reports neck and left shoulder pain which began about 5 weeks after moving heavy furniture (January 2024). She reports popping in the neck and back. Her pain is actually the worst in the left shoulder, but she does also report radiating pain into the last 4 fingers of the left hand. Patient is right handed. + difficulty with fine motor, but this is chronic, no worsening. No ataxia, no frequent falls. No bowel/bladder disturbance. She has been taking OTC tylenol and Ibuprofen, as well as cyclobenzaprine. She received a PT referral from her PCP but does not start until Apr 20. PMH includes asthma, COPD, GERD, hypothyroidism, + smoker. No previous history of cervical spinal surgery. XR of the cervical spine was obtained showing 4mm retrolisthesis of C6 over C7. Minimal grade 1 retrolisthesis of C3 over C4. Other degenerative spondylotic changes as above. Destiny Odom, TEST FACILITY ENGINEER, CONVEYOR FEEDER [address], [address], [place] [facility] 03/22/2024 11:07:44 4 text/html Alva Shore is a 64-year-old female with a PMH significant for hypothyroidism, osteopenia, COPD, asthma, + smoker, HLD, prior right carpal tunnel surgery, and GERD who was referred by Dr. Lou Siegel for cervical spondylosis and initially saw Ishmael Odom on 03/22/24. She reports neck and left shoulder pain which began about 5 weeks after moving heavy furniture (January 2024). She has also been noticing frequent popping in her neck and back with movement. Her pain is worst in the left shoulder which she reports feels as though it is in a vice manager of selection and assessment. She also reports intermittent radiating (shooting) pain into the arm and down to the last 4 fingers of the left hand (Patient is right handed). She reports 4-5 years worth of mild weakness in the left arm as well as intermittent difficulty with fine motor tasks, which she states is chronic and not worsening. Denies ataxia and frequent falls. Reports increased issues with bladder urgency as well as some incontinence over the past year. Denies bowel disturbance. She has been taking OTC tylenol and Ibuprofen, as well as cyclobenzaprine. She received a PT referral from her PCP but does not start until Apr 20. XR imaging of the cervical spine was obtained showing 4mm retrolisthesis of C6 over C7. Minimal grade 1 retrolisthesis of C3 over C4. Mrs. Shore presents to clinic today with same day MRI imaging of he cervical spine for review. The MRI was not yet read by the radiologist at the time of her appointment but was reviewed by myself as well as with Dr. Phelan and demonstrated a moderate to large disc herniation at C3-4 with severe foraminal stenosis on the left and moderate on the right as well as mild to moderate central canal stenosis at C5-6 and moderate to severe spinal canal stenosis at C6-7 with severe bilateral neuroforaminal stenosis at that level. Based on imaging there was also some concern for instability at C6-7 given the degree of significant degenerative changes at that level. There was initially discussion of potential need for intervention in the form of C5-6 C6-7 ACDF however after further in depth discussion with the patient and physical exam it became evident that this patient primary issue currently was C3-4 given the severe pain in her neck and left shoulder with occasional radiation down the arm but not frequently. She denies ataxia, falls, apraxia, new numbness, tingling, or weakness, and new or worsening bowel or bladder incontinence. On exam she was noted to have some mild weakness in the left arm which seemed to be giveaway weakness secondary to pain. Strength exam was consistent with 4+/5 in left deltoid, tricep, and bicep. Otherwise strength was 5/5. Gait was slow and steady. Romberg negative. --------MRI Cervical Spine (04/05/24):Individual levels:C1-2:No significant spinal canal stenosis.C2-3:No significant spinal canal or neuroforaminal stenosis.C3-4:Large left posterolateral disc extrusion causing severe proximal left neuroforaminal stenosis but not directly contacting the cord. Central spinal canal is widely patent. There is also severe right neuroforaminal stenosis but this predominantly from uncovertebral and facet arthropathy. There may be a small component of disc protrusion toward the foramen as well.C4-5:No significant spinal canal or neuroforaminal stenosis.C5-6:Mild diffuse disc bulge resulting in mild to moderate spinal canal stenosis. Disc bulge slightly contacts the ventral cord.C6-7:Moderate to severe spinal canal stenosis from thickening of ligamentum flavum which contacts the dorsal cord and disc bulge contacts the ventral cord. Severe bilateral neuroforaminal stenosis from disc bulge with endplate osteophyte.C7-T1:No significant spinal canal or neuroforaminal stenosis.IMPRESSION:1. Moderate to large left posterolateral disc extrusion at C3-4 causing severe proximal left neuroforaminal stenosis.2. Moderate to severe spondylytic spinal canal stenosis at C6-7 from a combination of disc bulge, endplate osteophyte, retrolisthesis, and thickening of ligamentum flavum. Also, severe bilateral degenerative neuroforaminal stenosis at this level. Audrey Stevenson, TEST FACILITY ENGINEER, CONVEYOR FEEDER [address] [place] [address], [address], [place] [facility] 04/09/2024 21:16:57 4 text/html Ms. Shore is a 64 year old female who is a patient of MERLE Meléndez, returns with questions regarding surgery. The patient states that she has pain in the left shoulder. This 64 year old with a PMH of hypothyroidism, osteopenia, COPD/asthma, + smoker, HLD, prior right carpal tunnel surgery, and GERD was last seen by Farideh Stevenson on 04/05/2024 for review of a same day MRI of the cervical spine to further evaluate pain in her neck and left shoulder. Conservatively, she had found some relief with OTC Tylenol/Ibuprofen and muscle relaxers and was scheduled to start physical therapy in this month. The pain was worst in the left shoulder which she reported felt as though it was in a vice manager of selection and assessment. She also reported intermittent radiating (shooting) pain into the arm and down to the last 4 fingers of the left hand (Patient is right handed). She reported 4-5 years worth of mild weakness in the left arm as well as intermittent difficulty with fine motor tasks, which she stated was chronic and not worsening. Denied ataxia and frequent falls. Reported increased issues with bladder urgency as well as some incontinence over the past year. Denied bowel disturbance. She had been taking OTC tylenol and Ibuprofen, as well as cyclobenzaprine. XR imaging of the cervical spine was obtained showing 4mm retrolisthesis of C6 over C7. Minimal grade 1 retrolisthesis of C3 over C4. Mrs. Shore presented to clinic with same day MRI imaging of the cervical spine for review. The MRI was not yet read by the radiologist at the time of her appointment but was reviewed by myself as well as with Dr. Phelan and demonstrated a moderate to large disc herniation at C3-4 with severe foraminal stenosis on the left and moderate on the right as well as mild to moderate central canal stenosis at C5-6 and moderate to severe spinal canal stenosis at C6-7 with severe bilateral neuroforaminal stenosis at that level. Based on imaging there was also some concern for instability at C6-7 given the degree of significant degenerative changes at that level. There was initially discussion of potential need for intervention in the form of C5-6 C6-7 ACDF however after further in depth discussion with the patient and physical exam it became evident that this patient primary issue currently was C3-4 given the severe pain in her neck and left shoulder with occasional radiation down the arm but not frequently. She denied ataxia, falls, apraxia, new numbness, tingling, or weakness, and new or worsening bowel or bladder incontinence. On exam she was noted to have some mild weakness in the left arm which seemed to be giveaway weakness secondary to pain. Strength exam was consistent with 4+/5 in left deltoid, tricep, and bicep. Otherwise strength was 5/5. Gait was slow and steady. Romberg negative In principle, I felt that this patient would benefit from operative intervention in the form of C3-4 ACDF. Details of the procedure as well as risks and benefits were reviewed including but not limited to bleeding, infection, new pain or neurologic deficit, unresolved pain, spinal fluid leak, development of adjacent segment disease in the coming years/ need for further surgery, and even . The patient expressed understanding of these risks and had elected to move forward with the operation. Mayte Banerjee [facility] 05/17/2024 10:47:35 4 text/html Alva Shore is a 64 year old with a PMH of hypothyroidism, osteopenia, COPD/asthma, + smoker, HLD, prior right carpal tunnel surgery, and GERD who originally presented to neurosurgery clinic with left shoulder pain, intermittent radiating pain, apraxia. She is now two weeks s/p C3-4 ACDF. MRI of the cervical spine without contrast was completed at [facility] on 04/05/24.IMPRESSION:1. Moderate to large left posterolateral disc extrusion at C3-4 causing severeproximal left neuroforaminal stenosis.2. Moderate to severe spondylytic spinal canal stenosis at C6-7 from acombination of disc bulge, endplate osteophyte, retrolisthesis, and thickeningof ligamentum flavum. Also, severe bilateral degenerative neuroforaminalstenosis at this level. Destiny Odom, TEST FACILITY ENGINEER, CONVEYOR FEEDER [address], [address], [place] [facility] 06/14/2024 10:42:12 4 text/html Ms. Shore is a 64 year old female who is a patient of Reinier Siegel NP, six weeks status post C3-4 ACDF returns for follow up. The patient states that she is doing well. She does have a burning in her right thumb but states she can live with that. She states that she has some mild pain at the base of her neck. She denies apraxia or ataxia. This 64 year old female with a PMH of hypothyroidism, osteopenia, COPD/asthma, + smoker, HLD, prior right carpal tunnel surgery, and GERD originally presented to neurosurgery clinic with left shoulder pain, intermittent radiating pain, apraxia. MRI of the cervical spine showed large disc herniation at C3-4 on the left causing severe proximal neuroforaminal stenosis. She was last seen by Kori Odom on 06/14/2024 two weeks s/p C3-4- ACDF on 05/28/[address] Phelan. She was sent to the ED on 05/[address] soft tissue showed some swelling- she was discharged with prednisone and instructions to complete her post op antibiotics. That day, was doing much better. She was pleased with the results of surgery. Her shoulder pain was gone, her cervical range of motion was improved. She even stated her incontinence was better. She had a mild headache. She denied fever, chills, drainage. The swallowing had improved. Her only new symptoms were burning in the right thumb. She had been participating in physical therapy. She stated that tizanidine did not work as well as Flexeril, so she planned to go back to Flexeril at night. She was no longer taking hydrocodone. On exam, she was happy. Her surgical incision was healing well, there was some residual Dermabond along the incision line. She still had hematoma beneath the incision, but compared to previous pictures it is much improved. Strength was 5 out of 5 bilateral upper extremities. Romberg was negative. At that point, could increase activities as tolerated without lifting greater than 20 pounds. She was clear to resume driving as long as she was not taking the narcotic pain medication. Would be OK to wash the incision lightly with mild soap and water, as well as peroxide twice daily. She could use the mupirocin ointment along the incision line as well. Would notify the clinic with any fever, drainage, dehiscence, increased pain, need for refills etc. Would follow up at 6 weeks post op for clinical re-evaluation. Would contact the clinic with any questions or concerns. Estela solorzano MD [address] [place] [address], [id number], [facility] 07/14/2024 16:15:07 OBGyn Episode No OBEpisode recorded.
--- OUTSIDE RECORDS SUMMARY | 2024-10-03 09:22 | XMS_ITS | Encounter Summary ---
Author Organization [facility] Address [address] [place] [address]. [place] [address] [place] [address] Care Team Providers Care Pm Head Cook Name Role Phone Lou Mcfarland Primary Care Provider [phone] Encounter Details Date Type Department Care Team (Late st Contact Info) Description 02/10/2019 Abstract [facility] [address] [place] [address] , Generic Conversion, Social History Tobacco Use Types Packs/Day Years Used Date Smoking Tobacco: Never Assessed Comments Unknown Sex and Gender Information Value Date Recorded Sex Assigned at Not on file Legal Sex Female 7:41 PM CDT Gender Identity Not on file Sexual Orientation Not on file documented as of this encounter Plan of Treatment Not on file documented as of this encounter Visit Diagnoses Not on filedocumented in this encounter Additional Health Concerns Infection Onset Date Last Indicated Resolved Time COVID-19 Rule Out 06/16/2022 06/16/2022 06/16/2022 7:25 AM CDT documented as of this encounter Care Teams Pm Head Cook Relationship Specialty Start Date End Date Lou Mcfarland FNP [address] [place] [address] PCP - General NURSE PRACTITIONER 06/16/22 documented as of this encounter
--- OUTSIDE RECORDS SUMMARY | 2024-10-03 09:22 | XMS_ITS | Encounter Summary ---
Author Organization [facility] Address [address] [place] [address]. [place], [place] [id number] [place] [id number] Care Team Providers Care Automobile Drivers Name Role Phone Lou Mcfarland Primary Care Provider [phone] Encounter Details Date Type Department Care Team (Latest Contact Info) Description 07/11/2018 Abstract [facility] , Ambika Rios MD Social History Tobacco Use Types Packs/Day Years [...] documented as of this encounter Care Teams Automobile Drivers Relationship Specialty Start Date End Date Lou Mcfarland FNP [address] [place] [address] PCP - General NURSE PRACTITIONER 06/16/22 documented as of this encounter
--- OUTSIDE RECORDS SUMMARY | 2024-10-03 09:22 | XMS_ITS | Clinical Summary ---
Author Organization [facility] Address [facility] 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 Active fluticasone propionate (FLONASE) 50 MCG/ACT nasal spray 1 spray by Each Nostril route 2 (two) times a day. Active vitamin C (ASCORBIC ACID) 1000 MG tablet Take 0.5 tablets (500 mg total) by mouth daily. Active Cyanocobalamin (VITAMIN B-12) [address] 1 tablet under the tongue daily. Active Fluticasone-Ume clidin-Vilant (TRELEGY ELLIPTA IN) Inhale 1 Inhaler into the lungs daily. Active magnesium oxide (MAG-OX) 250 MG tablet Take 1 tablet (250 mg total) by mouth every other day. Active zinc gluconate 50 MG Tab Take 1 tablet by mouth every other day. Unsure of dose Active alendronate (FOSAMAX) 70 MG tabletIndicatio ns:fridays Take 1 tablet (70 mg total) by mouth every 7 days. Indications: fridays Active loratadine (CLARITIN) 10 MG tablet Take 1 tablet (10 mg total) by mouth daily. Active diphenhydrAMINE (BENADRYL) 25 MG tablet Take 25 mg by mouth nightly. Active acetaminophen CR (TYLENOL) 650 MG Tab CR 8 hr tablet Take 1 tablet (650 mg total) by mouth 3 (three) times daily as needed. Active Family History Medical History Relation Comments Cancer Father skin Hyperlipidemia Father Hypertension Father Stroke Father Dementia Mother Hyperlipidemia Mother Hypertension Mother Stroke Mother Relation Status Comments Father Mother Social History Tobacco Use Types Packs/Day Years Used Date Smoking Tobacco: Every Day Cigarettes 0.5 45 Smokeless Tobacco: Never Tobacco Cessation:Ready to Q uit: Not Asked; Counseling Given: Not Answered Comments:trying to stop- pt aware not to smoke cigarettes or use marijuana 24hrs prior to surgery Alcohol Use Standard Drinks/Week Comments Not Currently 0 (1 standard drink = 0.6 oz pur e alcohol) rare Comments No Sex and Gender Information Value Date Recorded Sex Assigned at Not on file Legal Sex Female 7:41 PM CDT Gender Identity Not on file Sexual Orientation Not on file Last Filed Vital Signs Vital Sign Reading Time Taken Comments Blood Pressure 134/80 06/16/2022 11:37 AM CDT Pulse 80 06/16/2022 11:37 AM CDT Temperature 36.6 ??C (97.8 ??F) 06/16/2022 11:37 AM C DT Respiratory Rate 15 06/16/2022 11:37 AM CDT Oxygen Saturation 96% 06/16/2022 11:37 AM CDT Inhaled Oxygen Concentration - - Weight 70.8 kg (156 lb) 05/01/2024 3:51 PM CDT Height 157.5 cm (5' 2 ) 05/01/2024 3:51 PM CDT Body Mass Index 28.53 05/01/2024 3:51 PM CDT Plan of Treatment Health Maintenance Due Date Last Done Comments Colorectal Cancer Screening Colonoscopy (10 Years) 1959 Hepatitis C 1977 Lung Cancer Screening 2009 Zoster Vaccines (1 of 2) 2009 Mammogram Screening 07/01/2016 07/01/2014 Pneumococcal Vaccine: 65+ Years (2 of 2 - PCV) 09/27/2019 09/27/2018 Pneumococcal Vaccine: Pediatrics (0 to 5 Years) and At-Risk Patients (6 to 64 Years) (2 of 2 - PCV) 09/27/2019 09/27/2018 Dexa Scan (General) 02/23/2024 COVID-19 Vaccine ( - 2023-2 5 season) 2024 Influenza Adult (#1) 2024 08/27/2013, 07/25/2012 DTaP, Tdap and Td Vaccines ( 3 - Td or Tdap) 10/30/2028 10/30/2018, 08/25/2012 RSV Immunization or 60+ Years (1 - 1-dose 75+ series) 2034 Meningococcal B Vaccine Aged Out No l onger eligible based on patient's age to complete this topic Meningococcal Vaccine Aged Out No micah sosa eligible based on patient's age to complete this topic RSV Immunizations Under 20 Months Aged Out No longer eligible b ased on patient's age to complete this topic Medical Devices Implanted Type Area Tire Bladder Maker Device Identifier Shelf Expiration Date Model / Serial / Lot Screw [place] Shruthi 3.0mm X 16mm - [id number] Implanted:Qty: 2 on 06/16/2022 by Edith Mark DPM at [facility] Screw Right: Foot [employer] [id number] / / Anis Screw Implanted:Qty: 1 on 06/16/2022 by Edith Mark DPM at [facility] Right: Foot [employer] [place] 40 / / Explanted Type Area Tire Bladder Maker Device Identifier Shelf Expiration Date Model / Serial / Lot K-Wire 1.2mm X 100mm - [id number] Explanted:Qty: 2 on 06/16/2022 at [facility] Wire Right: Foot [employer] [place] [id number] / / K- Wire 0.8mm Explanted:Qty: 1 on 06/16/2022 at [facility] Wire Right: Foot [employer] [place] 45 / / Procedures Procedure Name Priority Date/Time Associated Diagnosis Comments MG SCREENING REBECCA DIGI Routine 07/01/2014 1:20 PM CDT from Last 3 Months or Most Recently Relevant to Health Maintenance Results * MG SCREENING REBECCA DIGI (07/01/2014 1:20 PM CDT) Anatomical Region Laterality Modality Breast Bilateral Mammography 07/01/2014 1:20 PM CDT 07/01/2014 1:20 PM CDT Narrative 07/01/2014 3:14 PM CDT JOAQUIM SHORE MD: DEIRDRE DAVIDSON C ?? ACCT: [id number] ?? ADMIT/SERVICE DATE: 07/01/14 DISCHARGE DATE: ?? : 1960 PT TYPE: REG CLI ?? SEX: F ORD SITE: [facility] ? STUDY DATE REPORT # PROCEDURE CODE PROCEDURE ?? 07/01/14 [id number] SCMAMDGB MG SCREEN MAMMO DIGITAL BI ? EXTORDERID ? [id number] ? CHART DOCUMENT ? DIVISION OF RADIOLOGY ? ACCESSION # ?EXAM DATE ? EXAM DESCRIPTION ?? [id number] ?07/01/2014 ?MG SCREEN MAMMO DIGITAL BI ? IMAGING STUDIES: ??MAMMOGRAM BILATERAL SCREENING DIGITAL WITH CAD, ?? 07/01/14 ? COMPARISON: ??01/14/12, 05/23/13. ? INDICATION: ??CERVICAL CANCER AT AGE 20. ??HYSTERECTOMY AT AGE 26. ?? SCREENING. ? BILATERAL CC AND MLO VIEWS. ? MODERATE AMOUNT OF BREAST PARENCHYMA. ? BILATERAL CC AND MLO VIEWS, FOUR FILMS. ? NO SUSPICIOUS MICROCALCIFICATION, WORRISOME MASS, ARCHITECTURAL DISTORTION, ? SKIN THICKENING OR NIPPLE RETRACTION. ? BENIGN MICROCALCIFICATIONS. ? BI-RADS CATEGORY 2, BENIGN FINDINGS. ? MQSA MAMMOGRAM CLASSIFICATION ? BI-RADS CATEGORY 0-NEED ADDITIONAL IMAGING EVALUATION ?? BI-RADS CATEGORY 1-NEGATIVE ?? BI-RADS CATEGORY 2-BENIGN FINDINGS ?? BI-RADS CATEGORY 3-PROBABLY BENIGN FINDING-SHORT INTERVAL FOLLOW UP ?? SUGGESTED ?? BI-RADS CATEGORY 4-SUSPICIOUS ABNORMALITY-BIOPSY SHOULD BE CONSIDERED ?? BI-RADS CATEGORY 5-HIGHLY SUGGESTIVE OF MALIGNANCY-APPROPRIATE ACTION ?? SHOULD BE TAKEN ? ELECTRONICALLY SIGNED BY ?? RUI YOUNG M.D. 07/01/2014 03:10 P ? ANS/JV ?? 07/01/201401:20 P ?? 07/01/2014 02:26 P ?? JOB NO: ??[id number] ??DOC NO: ??[id number] ?? CC: ? Procedure Note Ambika Mercer, - 06/29/2018 JOAQUIM SHORE ORDERING MD: DEIRDRE DAVIDSON ACCT: [id number] ADMIT/SERVICE DATE: 07/01/14 DISCHARGE DATE: : 1960 PT TYPE: REG CLI SEX: F ORD SITE: [facility] STUDY DATE REPORT # PROCEDURE CODE PROCEDURE 07/01/14 [id number] SCMAMDGB MG SCREEN MAMMO DIGITAL BI EXTORDERID [id number] CHART DOCUMENT DIVISION OF RADIOLOGY ACCESSION # EXAM DATE EXAM DESCRIPTION [id number] 07/01/2014 MG SCREEN MAMMO DIGITAL BI IMAGING STUDIES: MAMMOGRAM BILATERAL SCREENING DIGITAL WITH CAD, 07/01/14 COMPARISON: 01/14/12, 05/23/13. INDICATION: CERVICAL CANCER AT AGE 20. HYSTERECTOMY AT AGE 26. SCREENING. BILATERAL CC AND MLO VIEWS. MODERATE AMOUNT OF BREAST PARENCHYMA. BILATERAL CC AND MLO VIEWS, FOUR FILMS. NO SUSPICIOUS MICROCALCIFICATION, WORRISOME MASS, ARCHITECTURALDISTORTION, SKIN THICKENING OR NIPPLE RETRACTION. BENIGN MICROCALCIFICATIONS. BI-RADS CATEGORY 2, BENIGN FINDINGS. MQSA MAMMOGRAM CLASSIFICATION BI-RADS CATEGORY 0-NEED ADDITIONAL IMAGING EVALUATION BI-RADS CATEGORY 1-NEGATIVE BI-RADS CATEGORY 2-BENIGN FINDINGS BI-RADS CATEGORY 3-PROBABLY BENIGN FINDING-SHORT INTERVAL FOLLOW UP SUGGESTED BI-RADS CATEGORY 4-SUSPICIOUS ABNORMALITY-BIOPSY SHOULD BE CONSIDERED BI-RADS CATEGORY 5-HIGHLY SUGGESTIVE OF MALIGNANCY-APPROPRIATE ACTION SHOULD BE TAKEN ELECTRONICALLY SIGNED BY RUI YOUNG M.D. 07/01/2014 03:10 P ANS/JV 07/01/201401:20 P 07/01/2014 02:26 P JOB NO: [id number] DOC NO: [id number] CC: us Generic Conversion Md MERCER MAMMO Final R esult from Last 3 Months or Most Recently Relevant to Health Maintenance Insurance MEDICARE [facility] Care Teams Ribbon Tier Relationship Specialty Start Date End Date Lou Mcfarland FNP [address] [place] [address] PCP - General NURSE PRACTITIONER 06/16/22
[2024-10-03] MEDS: IRON SUCROSE COMPLEX 300 MG in SODIUM CHLORIDE 0.9% IV 250 ML 125 MG IVPB (09:37)
[2024-10-03 09:50] VITALS: BMI 26.6
== END 2024-10-03 08:54 | disposition home or self-care (01) ==
PROVIDERS: PCP Nurse Practitioner Family; Visit Provider Nurse Practitioner Family
DX: D50.9 Iron deficiency anemia, unspecified (principal)
CPT/HCPCS: 96365; 96366; J1756; J7050

== ENCOUNTER 2024-10-08 08:54 | Outpatient (CLI) | payer MEDICARE, OTHER, SELFPAY ==
--- OUTSIDE RECORDS SUMMARY | 2024-10-08 09:15 | XMS_ITS | Clinical Summary ---
Author Organization [facility] Address [facility] [place] [address] [place] [address] Care Team Providers Care Airplane Electrical Repairer Name Role Phone Lou Mcfarland HOTEL CONTROLLER Primary Care Provider +1 [phone] Allergies Active Allergy Reactions Criticality Noted Date [...] this topic Medical Devices Implanted Type Area Critical Care Physician Assistant Device Identifier Shelf Expiration Date Model / Serial / Lot Screw Titus Shruthi 3.0mm X 16mm - [id number] Implanted:Qty: 2 on 06/16/2022 by Edith Mark DPM at [facility] Screw Right: Foot [employer] [place] [id number] / / Anis Screw Implanted:Qty: 1 on 06/16/2022 by Edith Mark DPM at [facility] Right: Foot [employer] [place] 40 / / Explanted Type Area Critical Care Physician Assistant Device Identifier Shelf Expiration Date Model / Serial / Lot K-Wire 1.2mm X 100mm - [id number] Explanted:Qty: 2 on 06/16/2022 at [facility] Wire Right: Foot [employer] [place] [id number] / / K- Wire 0.8mm Explanted:Qty: 1 on 06/16/2022 at [facility] Wire Right: Foot [employer] [...] SHORE MD: DEIRDRE DAVIDSON C ?? ACCT: [id number] ?? ADMIT/SERVICE DATE: 07/01/14 DISCHARGE DATE: ?? : 1960 PT TYPE: REG CLI ?? SEX: F ORD SITE: [facility] ? STUDY DATE REPORT # PROCEDURE CODE PROCEDURE ?? 07/01/14 [id number] SCMAMDGB MG SCREEN MAMMO DIGITAL BI ? EXTORDERID ? [id number] ? CHART DOCUMENT ? DIVISION OF RADIOLOGY ? ACCESSION # ?EXAM DATE ? EXAM DESCRIPTION ?? [id number] ?07/01/2014 ?MG SCREEN MAMMO DIGITAL BI ? [...] ?? 07/01/2014 02:26 P ?? JOB NO: ??[id number] ??DOC NO: ??[id number] ?? CC: ? Procedure Note Ambika Mercer, - 06/29/2018 JOAQUIM SHORE ORDERING MD: DEIRDRE DAVIDSON ACCT: [id number] ADMIT/SERVICE DATE: 07/01/14 DISCHARGE DATE: : 1960 PT TYPE: REG CLI SEX: F ORD SITE: [facility] STUDY DATE REPORT # PROCEDURE CODE PROCEDURE 07/01/14 [id number] SCMAMDGB MG SCREEN MAMMO DIGITAL BI EXTORDERID [id number] CHART DOCUMENT DIVISION OF RADIOLOGY ACCESSION # EXAM DATE EXAM DESCRIPTION [id number] 07/01/2014 MG SCREEN MAMMO DIGITAL BI IMAGING [...] 07/01/201401:20 P 07/01/2014 02:26 P JOB NO: [id number] DOC NO: [id number] CC: us Generic Conversion Md MERCER MAMMO Final R esult from Last 3 Months or Most Recently Relevant to Health Maintenance Insurance MEDICARE [facility] Care Teams Airplane Electrical Repairer Relationship Specialty Start Date End Date Lou Mcfarland FNP [address] [place] [address] PCP - General NURSE PRACTITIONER 06/16/22
--- OUTSIDE RECORDS SUMMARY | 2024-10-08 09:15 | XMS_ITS | Encounter Summary ---
Author Organization [facility] Address [address] [place] [address]. [place], [place] [address] [place] [address] Care Team Providers Care Rigging Man Name Role Phone Lou Mcfarland Primary Care Provider [phone] [phone] Encounter Details Date Type Department Care Team (Latest Contact Info) Description 07/11/2018 Abstract [facility] , Ambika Rios MD Social [...] documented as of this encounter Care Teams Rigging Man Relationship Specialty Start Date End Date Lou Mcfarland FNP [address] [place] [address] PCP - General NURSE PRACTITIONER 06/16/22 documented as of this encounter
--- OUTSIDE RECORDS SUMMARY | 2024-10-08 09:15 | XMS_ITS | Encounter Summary ---
Author Organization [facility] Address [address] [place] [address]. [place] [address] [place] [address] Care Team Providers Care Lead Java Programmer Name Role Phone Lou Mcfarland Primary Care Provider [phone] [phone] Encounter Details Date Type Department Care Team (Late st Contact Info) Description 02/10/2019 Abstract [facility] [address] [place] [address] , Generic Conversion, Social History [...] documented as of this encounter Care Teams Lead Java Programmer Relationship Specialty Start Date End Date Lou Mcfarland FNP [address] [place] [address] PCP - General NURSE PRACTITIONER 06/16/22 documented as of this encounter
--- OUTSIDE RECORDS SUMMARY | 2024-10-08 09:16 | XMS_ITS | Data Portability ---
Author Organization [facility], [address] [facility] [facility] ([place]) Address [address] 4th [place] [address] Care Team Providers Care Hatch Supervisor Name Role Phone LOU MCFARLAND Primary Care Provider LOU MCFARLAND Referring Provider [phone] Assessment Encounter Date Assessment Date Assessment LastModified by Organization Details LastModified Time 04/05/2024 04/05/2024 In summary, this 64 year [...] as though it is in a vice home care manager. She also reports intermittent radiating (shooting) pain [...] as though it was in a vice home care manager. She also reported intermittent radiating (shooting) pain [...] us to participate in this patient's care. [email or web address] Not available 04/24/2024 16:14:39 06/14/2024 06/14/2024 In [...] us to participate in this patient's care. [email or web address] Not available 07/12/2024 11:49:28 10/04/2024 10/04/2024 Alva monroy is a 64-year-old female who is now about 4 months status post C3-[address] Phelan on 05/28/2024. X-rays performed prior to the visit today show well-placed hardware, no complications. Currently, she reports pain in the neck and across the shoulders.She denies radicular pain symptoms, but does report numbness of the first finger of the right hand. She continues to take a muscle relaxer at night. She denies ataxia or frequent falls. She did a few sessions of physical therapy and continues to do exercises at home. We will follow-up at 6 months postop with flexion-extension x-rays of the cervical spine. She is concerned about her C5-6 and C6-7 levels, MRI from prior to the surgery (04/05/2024 at [facility]) was reviewed with her again and there is degeneration at both of those levels, more so at C6-7 with moderate to severe canal stenosis, no cord signal change. I discussed with her that while she may be a candidate for surgery in the future, I recommend that she continue to closely monitor her symptoms of myelopathy such as progressively worsening severe radiating pain into the arms, ataxia and frequent falls, increased difficulty with fine motor control. Nonetheless, I offered an MRI of the cervical spine without contrast 1 year from the original date of MRI, which will be planned for April 2025. She could consider Gabapentin or Lyrica for the residual pain/paresthesias and she would like to discuss this with her PCP. Contact the clinic with any questions or concerns in the meantime. [email or web address] Not available 10/04/2024 11:14:57 Plan of Treatment Reminders Order Date Submit Date Provider Last Modified By Organization Details Last Modified Time Details Appointments Establish ed Patient 15.EST 2024 10:00A M Dr. Estela Gu tchivi Not available Not available Not available Lab None recorded. Referral None recorded. Procedures None recorded. Surgeries None recorded. Imaging MRI, cervical spine, w/o contrast 03/20/ 025 [facility], [facility] [place] [address], [id number], 10/04/2024 10:41:26 Medication Orders None recorded. Patient TargetsNo targets recorded. Patient InstructionsNo instructions recorded. Reason for Referral None Reported. Results Created Date Observation Date Name Description Value Unit Range Abnormal Flag Note LastModifiedBy Organization Detail LastModifiedTime 04/05/20 24 04/05/2024 MRI, cervi chantelle spine , w/o contr ast [address] [address] Teleph one [phone] Name: Jyotsna Sellers [id number] am Date: 2023 Age: 64Phys ician: Edmond n, FARM OPERATIONS MANAGER, Stepjanet urbinae : 1959Ex aminat ion: MRI CERVIC AL [...] oramin al stenos is. C3-4:L arge left lamp tester and inspector olater al disc extrus ion causin g [...] MARIAM: 1. Modera te to large left lamp tester and inspector olater al disc extrus ion at C3-4 [...] in [place] cribe by: CL HELTON MD on:04/05 2:28 PM cc: Page PAGE 1 of [facility] 1 [email or web address] [facility] [address] [place] [address], [id number], 04/09/2024 10:26:51 08/22/20 24 04/12/2024 elect thiago suarez am, routi ne ECG, 12 leads min; inter preta tion and repor t (PROC ) No observ ation record ed. [email or web address] Not Available 08/23/2024 21:07:02 10/04/19 25 10/04/2024 XR, cervi chantelle spine , 2 or 3 view [place] [phone] Teleph one Name: Jyotsna Sellers [id number] am Date: 2024 Age: 64Phys ician: Edmond n, FARM OPERATIONS MANAGER, Ty rothman : 1959Ex aminat ion: XR CERVIC AL 2 OR 3 VIEWS Exam: XR CERVIC AL 2 OR 3 VIEWS INDICA TION: 3 month post-o p follow up on ACDF C3-4, date of surger y was 4. Patien t states neck pain has improv ed since surger y. PROCED URE: Latera l, fronta l, odonto id views of the cervic al spine were obtain ed. COMPAR GABBY:N one FINDIN GS: There is revers al of curvat ure of the cervic al spine. Anteri or cervic al fusion with disc spacer at C3-4 level seen. No hardwa re compli cation s noted. There is degene rative disc diseas e and facet arthro carlos at C6-7 level with mild retrol isthes is. Mild degene rative disc diseas e and facet arthro carlos at other cervic al levels also. The imaged soft tissue s appear normal . IMPRES MARIAM: 1. Anteri or cervic al fusion at C3-4 level withou t compli cating featur es. 2. Signif icant cervic al spondy losis at C6-7 level with mild retrol isthes is. Electr onical ly signed in [place] cribe by: STEVEN REHMAN MD on:09/07 9:49 AM cc: Page PAGE 1 of [facility] ES 1 [email or web address] [facility] [address] [place] [address], [id number], 10/04/2024 11:10:11 Result Notes None recorded. Problems Name Problem SNOMED Code Status Onset Date Resolution Date Notes Provider Name and Address Organization Details Recorded Time Cervical radiculopathy 38164036 Active 2023 Audrey Stevenson APRN, STEEL ERECTOR [address] [place] [address], [phone] , [facility] 4 21:16:13 Cervical spondylosis 679635442 Active 2023 Destiny Odom APRN, STEEL ERECTOR [address] [place] [address], [phone] , [facility] 4 13:45:38 Notes:Some problems listed i n Document: #[id number] could not be added to this patient's [...] MRI, cervical spine, w/o contrast completed [email or web address] [facility] [address] [place] [address], [id number], 04/09/2024 10:26:51 04/12/2024 electrocardiogram, routine ECG, 12 leads min; interpretation and report (PROC) completed [email or web address] Information not available 08/23/2024 21:07:02 10/04/2024 XR, cervical spine, 2 or 3 view completed [email or web address] [facility] [address] [place] [address], [id number], 10/04/2024 11:10:11 Procedure Notes None recorded. Medical Equipment None Reported. Allergies Allergen ID Allergen Name Allergen Category Reaction Reaction Severity Criticality Documentation Date Start Date Code Code System Note Provider Name and Address Organization Details Recorded Time 646981 fexofenad ine medicatio n Not available Not available Not available 10/03/20232021 78771 RxNorm Not Available Not Available Not Available 375000 Product containin g penicilli n and antibioti c (product) medicatio n Not available Not available Not available 10/03/20232021 11821 05 SNOMED Not Available Not Available Not [...] BY MOUTH TWICE DAILY NEEDED FOR COUGH active Not Available Not Available No t Available prednisone 20 mg tablet TAKE 2 TABLETS BY MOUTH DAILY active Not Available Not Available No t Available alendronate 70 mg tablet TAKE 1 TABLET BY MOUTH WEEKLY active Not Available Not Available No t Available tramadol 50 mg tablet TAKE 1 TABLET BY MOUTH EVERY 6 HOURS NEEDED FOR PAIN 07/12 completed Not Available Not Available Not Available levothyroxi ne 100 mcg tablet TAKE 1 TABLET BY MOUTH DAILY active Not Available Not Available No t Available levothyroxi ne 88 mcg tablet TAKE 1 TABLET BY MOUTH DAILY 07/12 completed Not Available Not Available Not Available doxycycline monohydrate 100 mg capsule TAKE 1 CAPSULE BY MOUTH TWICE DAILY active Not Available Not Available No t Available hydrocodone 7.5 mg-acetamin ophen 325 mg [...] completed Not Available Not Available Not Available docusate sodium 100 mg capsule TAKE 1 CAPSULE BY MOUTH TWICE DAILY active Not Available Not Available No t Available omeprazole 20 mg capsule,del ayed release [...] Not Available Not Available No t Available FeroSul 325 mg (65 mg iron) tablet TAKE 1 TABLET BY MOUTH TWICE DAILY active Not Available Not Available No t Available levothyroxi ne 100 mcg capsule active Not Available Not Available Not Available Trelegy Ellipta 100 mcg-62.5 mcg-25 mcg powder for inhalation USE 1 INHALATIO N EVERY DAY active Not Available Not Available No t Available Vitals Date Recorded Heart rate Oxygen saturation Oxygen saturation in Arterial blood by Pulse oximetry Systolic blood pressure Diastolic blood pressure Provider Name and Address Organization Details Last Updated DateTime 4 65 /min 99 % 99 % 136 mm[Hg] 84 mm[Hg] Mayte Schulte [facility] 4 14:52:12 Date Recorded Body weight Oxygen saturation Oxygen saturation in Arterial blood by Pulse oximetry Heart rate Systolic blood pressure Diastolic blood pressure Provider Name and Address Organization Details Last Updated DateTime 4 52465.8 6 g 97 % 97 % 55 /min 120 mm[Hg] 78 mm[Hg] Yulisa Maguire [facility] 4 09:59:17 Date Recorded Body weight Oxygen saturation Oxygen saturation in Arterial blood by Pulse oximetry Heart rate Systolic blood pressure Diastolic blood pressure Provider Name and Address Organization Details Last Updated DateTime 4 11831.4 5 g 97 % 97 % 108 /min 118 mm[Hg] 78 mm[Hg] Mayte Schulte [facility] 4 11:34:27 Date Recorded Body weight Heart rate Oxygen saturation Oxygen saturation in Arterial blood by Pulse oximetry Systolic blood pressure Diastolic blood pressure Provider Name and Address Organization Details Last Updated DateTime 5 82746.9 2 g 115 /min 98 % 98 % 126 mm[Hg] 82 mm[Hg] Becky Asher [facility] 5 10:10:13 Social History Question Answer Notes LastModified by [...] Do You Have A Medical Power Of Quality Control Inspector Heading? Yes [email or web address] Information not available 03/29/2024 What [...] gland [email or web address] Not available 2023 11:26:51 Brother Tamy palacios [email or web address] Not available 2023 14:53:48 Medical History [...] SNOMED-CT Code Diagnosis ICD10 Code Diagnosis Note [id number] Estela guajardo MD [address] [facility] ([place]) [address] [place] [address] 03/22/2024 10:19:20 03/22/2024 11:32:17 Cervical spondylosis 998607922 M47.482 [id number] Estela guajardo MD [address] [facility] ([place]) [address] [place] [address] 04/05/2024 14:24:03 04/05/2024 17:53:51 Cervical spondylosis 507105917 M47.812 Cervical radiculopathy 84062284 M54.12 [id number] Mayte Banerjee [address] [facility] ([place]) [address] [place] [address] 04/24/2024 15:25:42 04/24/2024 16:51:52 Cervical spondylosis 096641456 M47.812 [id number] Estela guajardo MD [address] [facility] ([place]) [address] [place] [address] 06/14/2024 09:40:51 06/14/2024 16:15:18 Cervical radiculopathy 94225114 M54.12 [id number] Estela guajardo MD [address] [facility] ([place]) [address] [place] [address] 07/12/2024 11:20:58 07/12/2024 11:43:57 Cervical spondylosis 241097306 M47.812 [id number] Estela guajardo MD [address] [facility] ([place]) [address] [place] [address] 10/04/2024 09:37:27 10/04/2024 12:14:16 Cervical radiculopathy 05750163 M54.12 Health Concerns Section Related Observation LastModified by Organization Detai ls LastModified Time None Recorded Concern Status LastModified by Organization Details LastModified Time None Recorded Advance Directives Directive Y: Payers Encounter Date Sequence Insurance Name Policy Number Policy Hawkins Covered Member ID Hawkins Member ID Guarantor Name 04/05/2024 1 [place] Alva Shore [id number] 1 Alva Shore 04/24/2024 1 [place] Alva Shore [id number] 1 Alva Shore 06/14/2024 1 [place] Alva Shore [id number] 1 Alva Shore 06/14/2024 2 [facility] (MEDICARE SUPPLEMENT) Alva Shore [id number] Alva Shore 07/12/2024 1 [place] Alva Shore [id number] 1 Alva Shore 07/12/2024 2 [employer] (MEDICARE SUPPLEMENT) Alva Shore [id number] Alva Shore 10/04/2024 1 [place] Alva Shore [id number] 1 Alva Shore 10/04/2024 2 [employer] (MEDICARE SUPPLEMENT) Alva Shore [id number] Alva Shore Notes Date Note Type Note Provider Name and Address Organization Details Recorded Time 4 text/html Alva Shore is a 64-year-old female with a PMH significant for hypothyroidism, osteopenia, COPD, asthma, + smoker, HLD, prior right carpal tunnel surgery, and GERD who was referred by Dr. Lou Mcfarland for cervical spondylosis and initially saw Ishmale Odom on 03/22/24. She reports neck and left shoulder pain which began about 5 weeks after moving heavy furniture (January 2024). She has also been noticing frequent popping in her neck and back with movement. Her pain is worst in the left shoulder which she reports feels as though it is in a vice home care manager. She also reports intermittent radiating (shooting) pain [...] neuroforaminal stenosis at this level. Audrey Stevenson, RAND BUTTER, STEEL ERECTOR [address] [place] [address], [phone], [facility] 04/09/2024 21:16:57 4 text/html Ms. Shore is [...] as though it was in a vice home care manager. She also reported intermittent radiating (shooting) pain [...] move forward with the operation. Mayte Banerjee [facility] 05/17/2024 10:47:35 4 text/html Alva Shore is a 64 year old with a PMH of hypothyroidism, osteopenia, COPD/asthma, + smoker, HLD, prior right carpal tunnel surgery, and GERD who originally presented to neurosurgery clinic with left shoulder pain, intermittent radiating pain, apraxia. She is now two weeks s/p C3-4 ACDF. MRI of the cervical spine without contrast was completed at [facility] on 04/05/24.IMPRESSION:1. Moderate to large left posterolateral disc extrusion at C3-4 causing severeproximal left neuroforaminal stenosis.2. Moderate to severe spondylytic spinal canal stenosis at C6-7 from acombination of disc bulge, endplate osteophyte, retrolisthesis, and thickeningof ligamentum flavum. Also, severe bilateral degenerative neuroforaminalstenosis at this level. Destiny Odom, RAND BUTTER, STEEL ERECTOR [address], [address], [facility] 06/14/2024 10:42:12 4 text/html Ms. Shore is a 64 year old female who is a patient of Reinier Mcfarland NP, six weeks status post C3-4 ACDF [...] any questions or concerns. Estela solorzano MD [facility], [address], [facility] 07/14/2024 16:15:07 5 text/html HPI:Initial consult: 03/22/24 S. Jasmina with 2.5 months worth of neck and left upper extremity radiculopathy, rec. MRI cervical spine 04/05/24 EH- stenosis on MRI at C3-4, ACDF planned 05/28/24 SURGERY DATE- C3-[address] Phelan at [facility], sent to the ED on 05/[address] swelling. CT soft tissue showed some swelling- she was discharged with prednisone and instructions to complete her post op antibiotics 06/14/24 [facility]- two week post op visit- doing better, no longer on Cobb, in PT already 07/12/24 [facility]- six week post op visit- complete resolution of pre-op symptoms 10/04/24 [facility]- 3 month post op visit- did PT and continues home exercises, numbness of right first finger; pain in neck and across shoulders but no pain in arms. No ataxia but + apraxia (chronic). Continues to take muscle relaxer at night, could consider gabapentin or lyrica and would like to discuss with pcp. Patient concerned about C5-6, 6-7 from initial MRI- she is asymptomatic at this time; offered repeat MRI cervical without in Apr 2025. Past Medical/Surgical History:asthma/COPD, GERD, hypothyroidism, iron infusions, + smoker Conservative Measures:OTC Tylenol/Ibuprofen and muscle relaxersPhysical therapy Pertinent Imaging: MRI Cervical Spine (04/05/24 at [facility]):IMPRESSION:1. Moderate to large left posterolateral disc extrusion at C3-4 causing severe proximal left neuroforaminal stenosis.2. Moderate to severe spondylytic spinal canal stenosis at C6-7 from a combination of disc bulge, endplate osteophyte, retrolisthesis, and thickening of ligamentum flavum. Also, severe bilateral degenerative neuroforaminal stenosis at this level. XR cervical at [facility] 10/04/24IMPRESSION:1. Anterior cervical fusion at C3-4 level without complicating features.2. Significant cervical spondylosis at C6-7 level with mild retrolisthesis. Destiny Odom, RAND BUTTER, STEEL ERECTOR [address] [place] [address], [phone], [place] [facility] 10/04/2024 11:15:22 OBGyn Episode No OBEpisode recorded.
[2024-10-08 09:30] VITALS: BP 104/71; PULSE 98; RESP 20; TEMP 36.1; O2SAT 92
[2024-10-08] MEDS: IRON SUCROSE COMPLEX 200 MG, IRON SUCROSE COMPLEX 100 MG in SODIUM CHLORIDE 0.9% IV 235 ML 125 MG IVPB (09:48)
[2024-10-08 09:57] VITALS: BMI 27.3
[2024-10-08 10:01] LABS: Add Urine Microscopic? NO; Appearance Urine Clear (Clear); Bilirubin Urine Negative (Negative); Blood Urine Negative (Negative); Color Urine Light Yellow (Yellow); Glucose Urine UA Negative (Negative); Ketones Urine Negative (Negative); Leukocyte Esterase Ur Negative LEU/UL (Negative); Nitrate Urine Negative (Negative); Protein Urine Negative (Negative); Urobilinogen Urine 0.2 mg/dL (0.2-1.0)
[2024-10-08 12:05] LABS: Basophils Absolute Auto 0.07 K/mm3 (0.00-0.10); Basophils Percent Auto 0.6 % (0.0-1.0); Eosinophils Absolute Auto 0.51 K/mm3 (0.02-0.50); Eosinophils Percent Auto 4.6 % (1.0-6.0); Hematocrit 36.5 % (35.0-42.0); Hemoglobin 12.1 g/dL (11.7-13.8); Immature Granulocyte Absolute 0.05 K/mm3 (0.00-0.00); Immature Granulocyte Percent A 0.5 % (0.0-0.0); Lymphocytes Absolute Auto 3.89 K/mm3 (1.10-4.50); Lymphocytes Percent Auto 35.4 % (18.0-42.0); Mean Corpuscular HGB Conc 33.2 g/dL (32-36); Mean Corpuscular Hemoglobin 31.2 pg (27.0-31.0); Mean Corpuscular Volume 94.1 fL (78.0-102.0); Mean Platelet Volume 10.1 fl (9.2-11.8); Monocytes Absolute Auto 0.94 K/mm3 (0.10-0.90); Monocytes Percent Auto 8.6 % (2.0-11.0); Neutrophils Absolute Auto 5.52 K/mm3 (1.70-7.20); Neutrophils Percent Auto 50.3 % (50.0-70.0); Platelet Count Result 448 K/mm3 (150-420); Red Blood Count 3.88 M/mm3 (4.20-5.40); Red Cell Distribution Width 13.9 % (11.6-14.4)
[2024-10-08 12:18] LABS: D Dimer 0.31 mg/L (0.19-0.50)
[2024-10-08 12:30] LABS: Alanine Aminotransferase 17 U/L (14-59); Albumin Level 3.7 g/dL (3.4-5.0); Alkaline Phosphatase 94 U/L (46-116); Anion Gap 11 mmol/L (4-12); Aspartate Amino Transferase 14 U/L (15-37); Bilirubin,Total 0.2 mg/dL (0.00-1.00); Blood Urea Nitrogen 16 mg/dL (7-18); CRP 1.8 mg/dL (0.0-0.9); Calcium 9.2 mg/dL (8.5-10.1); Carbon Dioxide 27 mmol/L (21-32); Chloride 103 mmol/L (98-108); Estimated CRCL calculation 59 ml/min; Estimated Glomerular Filt Rate > 60; Ferritin 650 ng/mL (8-252); Glucose 89 mg/dL (70-99); Iron 709 ug/dL (50-170); Osmolality Calculated 292 mOsm/kg (285-295); Percent Iron Saturation 110 % (12-57); Potassium 4.8 mmol/L (3.5-5.1); Sodium 141 mmol/L (136-145); Total Protein 5.9 g/dL (6.4-8.2)
== END 2024-10-08 08:55 | disposition home or self-care (01) ==
LOC: CHSTREATRM 08:57
PROVIDERS: PCP Nurse Practitioner Family; Visit Provider Nurse Practitioner Family
DX: D50.9 Iron deficiency anemia, unspecified (principal)
CPT/HCPCS: 80053; 81003; 82728; 83540; 83550; 85025; 85380; 86140; 96365; 96366; 96367; J1756; J7050

== ENCOUNTER 2024-11-06 08:04 | Outpatient (CLI) | payer MEDICARE, OTHER, SELFPAY ==
--- OUTSIDE RECORDS SUMMARY | 2024-11-06 08:19 | XMS_ITS | Encounter Summary ---
Author Organization [facility] Address [facility] [place] [address] Care Team Providers Care Intelligence Specialist Name Role Phone Lou Mcfarland Primary Care Provider [phone] Encounter Details Date Type Department Care Team [...] documented as of this encounter Care Teams Intelligence Specialist Relationship Specialty Start Date End Date Lou Mcfarland FNP [address] [place] [address] PCP - General NURSE PRACTITIONER 06/16/22 documented as of this encounter
--- OUTSIDE RECORDS SUMMARY | 2024-11-06 08:19 | XMS_ITS | Encounter Summary ---
Author Organization [facility] Address [facility] [place] [address] Care Team Providers Care Applications Analyst Name Role Phone Lou Mcfarland Primary Care Provider [phone] Encounter Details Date Type Department Care Team (Late st Contact Info) Description 02/10/2019 Abstract SFL CONVERSION [address] [place] [address] , Generic Conversion, Social History Tobacco Use [...] documented as of this encounter Care Teams Applications Analyst Relationship Specialty Start Date End Date Lou Mcfarland FNP [address] [place] [address] PCP - General NURSE PRACTITIONER 06/16/22 documented as of this encounter
--- OUTSIDE RECORDS SUMMARY | 2024-11-06 08:19 | XMS_ITS | Clinical Summary ---
Author Organization [facility] Address [address] [place] [address] Care Team Providers Care Burlap Bag Sewer Name Role Phone Lou Mcfarland DIRECTOR LIFE INSURANCE Primary Care Provider [phone] Allergies Active Allergy Reactions Criticality Noted Date [...] 80 06/16/2022 11:37 AM CDT Temperature 36.6 C (97.8 F) 06/16/2022 11:37 AM CDT Respiratory Rate 15 06/16/2022 11:37 AM CDT [...] 09/27/2018 Dexa Scan (General) 02/23/2024 COVID-19 Vaccine (2023-2 5 season) 2024 Influenza Adult (#1) 2024 [...] this topic Medical Devices Implanted Type Area Gas Leak Inspector Device Identifier Shelf Expiration Date Model / Serial / Lot Screw Lavelle Shruthi 3.0mm X 16mm - [id number] Implanted:Qty: 2 on 06/16/2022 by Edith Mark DPM at [facility] Screw Right: Foot [employer] [place] [employer] / / Anis Screw Implanted:Qty: 1 on 06/16/2022 by Edith Mark DPM at [facility] Right: Foot [employer] [place] [employer] / / Explanted Type Area Gas Leak Inspector Device Identifier Shelf Expiration Date Model / Serial / Lot K-Wire 1.2mm X 100mm - [id number] Explanted:Qty: 2 on 06/16/2022 at [facility] Wire Right: Foot [employer] [place] 45 / / K- Wire 0.8mm Explanted:Qty: 1 on 06/16/2022 at [facility] Wire Right: Foot [employer] - [...] Narrative 07/01/2014 3:14 PM CDT JOAQUIM SHORE ORDERING MD: DEIRDRE DAVIDSON ACCT: [id number] ADMIT/SERVICE DATE: 07/01/14 DISCHARGE DATE: : 1960 PT TYPE: REG CLI SEX: F ORD SITE: [facility] STUDY DATE REPORT # PROCEDURE CODE PROCEDURE 07/01/14 [id number] SCMAMDGB MG SCREEN MAMMO DIGITAL BI EXTORDERID [id number] CHART DOCUMENT DIVISION OF RADIOLOGY ACCESSION # EXAM DATE EXAM DESCRIPTION [id number] 07/01/2014 MG SCREEN MAMMO DIGITAL BI IMAGING STUDIES: MAMMOGRAM BILATERAL SCREENING DIGITAL WITH CAD, 07/01/14 COMPARISON: 01/14/12, 05/23/13. INDICATION: CERVICAL CANCER AT AGE 20. HYSTERECTOMY AT AGE 26. SCREENING. BILATERAL CC AND MLO VIEWS. MODERATE AMOUNT OF BREAST PARENCHYMA. BILATERAL CC AND MLO VIEWS, FOUR FILMS. NO SUSPICIOUS MICROCALCIFICATION, WORRISOME MASS, ARCHITECTURAL DISTORTION, SKIN THICKENING OR NIPPLE RETRACTION. BENIGN MICROCALCIFICATIONS. [...] 07/01/201401:20 P 07/01/2014 02:26 P JOB NO: [id number] DOC NO: [id number] CC: Procedure Note Ambika Mercer MD - 06/29/2018 JOAQUIM SHORE ORDERING MD: DEIRDRE DAVIDSON ACCT: [id number] ADMIT/SERVICE DATE: 07/01/14 DISCHARGE DATE: : 1960 PT TYPE: REG CLI SEX: F ORD SITE: [facility] STUDY DATE REPORT # PROCEDURE CODE PROCEDURE 07/01/14 [id number] SCMAMDGB MG SCREEN MAMMO DIGITAL BI EXTORDERID [id number] CHART DOCUMENT DIVISION OF RADIOLOGY ACCESSION # EXAM DATE EXAM DESCRIPTION [id number] 07/01/2014 MG SCREEN MAMMO DIGITAL BI IMAGING [...] 07/01/201401:20 P 07/01/2014 02:26 P JOB NO: [id number] DOC NO: [id number] CC: us Generic Conversion Md MERCER MAMMO Final R esult from Last 3 Months or Most Recently Relevant to Health Maintenance Insurance [facility]ICARE [facility] Care Teams Burlap Bag Sewer Relationship Specialty Start Date End Date Lou Mcfarland FNP [address] [place] [address] PCP - General NURSE PRACTITIONER 06/16/22
[2024-11-06 08:34] LABS: Basophils Absolute Auto 0.07 K/mm3 (0.00-0.10); Basophils Percent Auto 0.6 % (0.0-1.0); Eosinophils Absolute Auto 0.49 K/mm3 (0.02-0.50); Eosinophils Percent Auto 4.4 % (1.0-6.0); Hematocrit 38.8 % (35.0-42.0); Hemoglobin 12.9 g/dL (11.7-13.8); Immature Granulocyte Absolute 0.08 K/mm3 (0.00-0.00); Immature Granulocyte Percent A 0.7 % (0.0-0.0); Lymphocytes Absolute Auto 3.63 K/mm3 (1.10-4.50); Lymphocytes Percent Auto 32.8 % (18.0-42.0); Mean Corpuscular HGB Conc 33.2 g/dL (32-36); Mean Corpuscular Hemoglobin 31.5 pg (27.0-31.0); Mean Corpuscular Volume 94.6 fL (78.0-102.0); Mean Platelet Volume 9.6 fl (9.2-11.8); Monocytes Absolute Auto 1.35 K/mm3 (0.10-0.90); Monocytes Percent Auto 12.2 % (2.0-11.0); Neutrophils Absolute Auto 5.45 K/mm3 (1.70-7.20); Neutrophils Percent Auto 49.3 % (50.0-70.0); Platelet Count Result 421 K/mm3 (150-420); Red Cell Distribution Width 14.6 % (11.6-14.4); White Blood Count 11.1 K/mm3 (4.8-10.8)
[2024-11-06 09:02] LABS: Iron 149 ug/dL (50-170)
== END 2024-11-06 08:05 | disposition home or self-care (01) ==
LOC: CHSLAB 08:09
PROVIDERS: PCP Nurse Practitioner Family; Visit Provider Nurse Practitioner Family
DX: E61.1 Iron deficiency (principal); D64.9 Anemia, unspecified; D72.829 Elevated white blood cell count, unspecified
CPT/HCPCS: 36415; 83540; 85025

== ENCOUNTER 2025-02-20 14:30 | Outpatient (CLI) | payer MEDICARE, OTHER, SELFPAY ==
--- NOTE | 2025-02-20 14:34 | ECG_ITS ---
Test Date: 2025-02-20 14:58:45 Measurements Intervals [place] Rate: 95 P: 72 CO: 154 QRS: 68 QRSD: 81 T: 60 QT: 336 QTc: 423 Interpretive Statements SINUS RHYTHM WITH SINUS ARRHYTHMIA POSSIBLE LEFT ATRIAL ENLARGEMENT BORDERLINE ECG Compared to ECG 09/13/2024 11:10:27 HEART RATE HAS DECREASED Electronically Signed On 02-20-2025 21:03:06 CDT by Abdulkadir García D.O.
[2025-02-20 15:03] LABS: Basophils Absolute Auto 0.08 K/mm3 (0.00-0.10); Basophils Percent Auto 0.5 % (0.0-1.0); Eosinophils Absolute Auto 0.32 K/mm3 (0.02-0.50); Eosinophils Percent Auto 2.1 % (1.0-6.0); Hematocrit 39.3 % (35.0-42.0); Hemoglobin 13.5 g/dL (11.7-13.8); Immature Granulocyte Absolute 0.08 K/mm3 (0.00-0.00); Immature Granulocyte Percent A 0.5 % (0.0-0.0); Lymphocytes Percent Auto 28.3 % (18.0-42.0); Mean Corpuscular HGB Conc 34.4 g/dL (32-36); Mean Corpuscular Hemoglobin 33.1 pg (27.0-31.0); Mean Corpuscular Volume 96.3 fL (78.0-102.0); Mean Platelet Volume 9.9 fl (9.2-11.8); Monocytes Absolute Auto 1.48 K/mm3 (0.10-0.90); Monocytes Percent Auto 9.7 % (2.0-11.0); Neutrophils Absolute Auto 8.94 K/mm3 (1.70-7.20); Neutrophils Percent Auto 58.9 % (50.0-70.0); Platelet Count Result 422 K/mm3 (150-420); Red Blood Count 4.08 M/mm3 (4.20-5.40); Red Cell Distribution Width 13.2 % (11.6-14.4); White Blood Count 15.2 K/mm3 (4.8-10.8)
[2025-02-20 15:17] LABS: Alanine Aminotransferase 15 U/L (6-35); Albumin Level 4.3 g/dL (3.5-5.1); Alkaline Phosphatase 79 U/L (38-126); Anion Gap 5 mmol/L (4-12); Aspartate Amino Transferase 23 U/L (14-36); Bilirubin,Total 0.4 mg/dL (0.2-1.3); Blood Urea Nitrogen 15 mg/dL (7-17); Calcium 9.4 mg/dL (8.4-10.2); Carbon Dioxide 25 mmol/L (22-30); Chloride 109 mmol/L (98-107); Cholesterol 225 mg/dL (0-200); Estimated Glomerular Filt Rate > 60; Glucose 109 mg/dL (65-110); HDL Direct 49 mg/dL; Iron 65 ug/dL (37-170); LDL Cholesterol Calculated 132 mg/dL (<130); Osmolality Calculated 289 mOsm/kg (285-295); Potassium 3.8 mmol/L (3.4-5.0); Sodium 139 mmol/L (137-145); Total Protein 6.7 g/dL (6.3-8.2); Triglycerides 219 mg/dL (<150)
[2025-02-20 15:26] LABS: Percent Iron Saturation 24 % (20-50)
[2025-02-20 15:33] LABS: Free T4 Free Thyroxine 1.42 ng/dL (0.78-2.19)
[2025-02-20 15:47] LABS: Thyroid Stimulating Hormone 0.309 uIU/mL (0.465-4.680)
--- OUTSIDE RECORDS SUMMARY | 2025-02-20 16:30 | XMS_ITS | Continuity of Care Document ---
Author Organization [facility], L Address [address] [place] [address] Phone Care Team Providers Care Supervisor Last Model Department Name Role Phone ObVerna gomez OD Unavailable Unavailabl e Allergies, Adverse Reactions, Alerts Substance Reaction Status Criticality ADHESIVE BANDAGE Hives / Skin Rash(severe) Active No Information PENICILLIN Active No Information Medications Medication Instructions Dosage Effective Dates (start - stop) Status Comments Airsupra 90 mcg-80 mcg/actuation HFA aerosol inhaler inhale 2 puff by inhalation route as needed :not to exceed 6 doses per day 2.00 puff - Active alendronate 10 mg tablet take 1 tablet by oral route every week in the morning, at least 30 min before first food, beverage, or medication of day 10 MG - Active cyclobenzaprine 7.5 mg tablet take 1 tablet by oral route every day 7.5 MG - Active duloxetine 30 mg capsule,delayed release take 1 capsule by oral route every day 30 MG - Active gabapentin 300 mg capsule take 1 capsule by oral route 3 times every day 300 MG - Active levothyroxine 13 mcg capsule instill 1 drop by Ophthalmic route every 12 hours OU 1 drop - Active montelukast 10 mg tablet take 1 tablet by oral route every day in the evening 10 MG - Active omeprazole 40 mg capsule,delayed release take 1 capsule by oral route every day before a meal 40 MG - Active lorazepam 1 mg tablet take 1 tablet by oral route 3 times every day as needed 1 MG - Active tramadol 25 mg tablet take 2 tablet by oral route every 4 - 6 hours as needed 50 MG - Active Benadryl Allergy 25 mg tablet take 1 tablet by oral route every 6 hours as needed for itching and give 2 tablets by oral route q HS 25 MG - Active loratadine 10 mg tablet take 1 tablet by oral route every day 10 MG - Active Procedures Procedure Date REFRACTION EYE EXAM, NEW PATIENT Advance Directives Directive Yes / No Effective Date File Name No Information Encounters Encounter Description Practice Location Reason(s) For Visit Diagnoses Date Provider Providers Copied on Encounter [facility], [address] [place] [address], [id number] , tel:[phone] [facility] No Information Steff Gillespie. [address] , [place], [place], [id number], [place]. [phone] [facility], [address] [place] [address], [id number] , tel:[phone] [facility] vision exam (chief complaint) Hypermetropia, bilateralPresbyopi aRegular astigmatism, bilateralDry eye syndrome of bilateral lacrimal glandsAge-related nuclear cataract, bilateralOther chronic allergic conjunctivitis Steff Gillespie. [address], [place], [place], [id number], [place]. tel:[phone] Referring Provider: Verna Pena, [address], [place], [address]. [phone] Family History Family Member Type Diagnosis Age At Onset Paternal grandmother Problem Hypertension Parents Problem Cataracts Problem No family history of Glaucom a Problem No family history of Macular degeneration Paternal grandmother Problem Diabetes mellitus Payers Payer name Insurance type Covered green party ID Authoriza tihayes(s) [facility] CI [id number] Social History Type Description Quantity Date Captured [...]
[2025-02-21 17:44] LABS: Total Triiodothyronine (T3) 94 ng/dL (76-181)
[2025-02-25 17:59] LABS: Babesia duncani (WA1) AB IgG <1:256
[2025-02-26 14:57] LABS: Reference Lab Test Name TICK ID
[2025-02-26 17:02] LABS: Lyme AB Screen <0.90 INDEX
[2025-02-27 20:18] LABS: Babesia microti AB IgG <1:64 titer; Babesia microti AB IgM <1:20 titer
== END 2025-02-20 14:31 | disposition home or self-care (01) ==
PROVIDERS: PCP Nurse Practitioner Family; Visit Provider Nurse Practitioner Family
DX: E61.1 Iron deficiency (principal); I10 Essential (primary) hypertension; E03.9 Hypothyroidism, unspecified; W57.XXXA Bitten or stung by nonvenomous insect and other nonvenomous arthropods, initial encounter; R00.0 Tachycardia, unspecified; Z13.6 Encounter for screening for cardiovascular disorders; E78.5 Hyperlipidemia, unspecified; R79.89 Other specified abnormal findings of blood chemistry; I49.8 Other specified cardiac arrhythmias
CPT/HCPCS: 36415; 80053; 80061; 83540; 83550; 84439; 84443; 84480; 85025; 86618; 86666; 87168; 93005

== ENCOUNTER 2025-04-02 12:45 | Outpatient (CLI) | payer MEDICARE, OTHER, SELFPAY ==
--- NOTE | ~2025-04-02 | MM_ITS ---
EXAMINATION: MM screening gela BI w nuvia HISTORY: Screening TECHNIQUE: Craniocaudal and mediolateral oblique 3-D tomosynthesis images were obtained and synthetic 2-D images were generated. CAD analysis was submitted and interpreted. COMPARISON: Comparison to multiple prior studies sequentially, with oldest reviewed study dated 02/26. BREAST PARENCHYMAL COMPOSITION: Not dense: There are scattered areas of fibroglandular density. FINDINGS: There is no evidence of suspicious mass, calcification, or architectural distortion to sugg est malignancy in either breast. There has been no suspicious interval change. IMPRESSION: 1. No mammographic evidence of malignancy. 2. Recommend routine screening mammography in one year. BI-RADS Category 1: Negative Reviewed, dictated and finalized at location B.
--- OUTSIDE RECORDS SUMMARY | 2025-04-02 12:50 | XMS_ITS | Patient Health Record ---
Author Organization [facility] Address [address] [place], [place] [id number] Care Team Providers Care Babbitt Spinner Name Role Phone SAI SchwartzILY Unavailable [phone] Gi Whitlock Unavailable Unavailable Reason For Referral No Information Plan Of Treatment No Information Insurance Providers Payer Name Payer Address Payer Phone Subscriber Number Group Number Insured Name Patient Relationship to Insured Coverage Start Date Coverage End Date [facility] ([facility]) ATTN CLAIMS [address] [place] [address] [id number] JOAQUIM CARLIN Self - patient is the insured
--- OUTSIDE RECORDS SUMMARY | 2025-04-02 12:50 | XMS_ITS | Continuity of Care Document ---
Author Organization [facility], L Address [address] [place] [address] Phone Care Team Providers Care Xray Tech Name Role Phone ObVerna gomez OD Unavailable [...] Diagnoses Date Provider Providers Copied on Encounter [facility], [address] [place] [address], [id number] , tel:[phone] [facility] No Information Steff Gillespie. [address] , [place], [place], [id number], [place]. [phone] [facility], [address] [place] [address], [id number] , tel:[phone] [facility] vision exam (chief complaint) Hypermetropia, bilateralPresbyopi aRegular astigmatism, bilateralDry eye syndrome of bilateral lacrimal glandsAge-related nuclear cataract, bilateralOther chronic allergic conjunctivitis Steff Gillespie. [address], [place], [place], [id number], [place]. tel:[phone] Referring Provider: Verna Pena, [address], [place], [address]. [phone] Family History Family Member Type Diagnosis Age At Onset Paternal grandmother Problem Diabetes mellitus Problem No family history of Macular degeneration Problem No family history of Glaucom a Parents Problem Cataracts Paternal grandmother Problem Hypertension Payers Payer name Insurance type Covered republican ID Authoriza tihayes(s) [facility] CI [id number] Social History Type Description Quantity Date Captured [...]
--- OUTSIDE RECORDS SUMMARY | 2025-04-02 12:50 | XMS_ITS | Data Portability ---
Author Organization [facility], [address] Neurology ([place]) Address [address] [place] [address] Care Team Providers Care Lift Slab Operator Name Role Phone PHILL SIEGEL Primary Care Provider [phone] PHILL SIEGEL Referring Provider ESTELA TEMPLETON Neurosurgeon Assessment Encounter Date Assessment Date Assessment LastModified by Organization Details LastModified Time 04/24/2024 04/24/2024 In summary, this 64 year [...] as though it was in a vice liquor rectifier. She also reported intermittent radiating (shooting) pain [...] us to participate in this patient's care. [email or web address] Not available 04/24/2024 16:14:39 06/14/2024 06/14/2024 In [...] us to participate in this patient's care. [email or web address] Not available 06/14/2024 10:41:44 07/12/2024 07/12/2024 In [...] us to participate in this patient's care. [email or web address] Not available 07/12/2024 11:49:28 10/04/2024 10/04/2024 Alva [...] from prior to the surgery (04/05/2024 at [facility]) was reviewed with her again and [...] any questions or concerns in the meantime. [email or web address] Not available 10/04/2024 11:14:57 12/25/2024 12/25/2024 In summary, this 64-year-old female status post C3-4 ACDF (05/28/24) presents for routine post surgical follow up. X-rays performed prior to the visit today show evidence of bony fusion and no instability. Symptoms are about the same as the time of her last visit. She wakes up with numbness in the hand, but not really much in the way of radiating pain. She denies ataxia or frequent falls. She continues to do exercises at home. She is scheduled for repeat MRI of the cervical spine in April of this year to follow up on the degenerative changes at C5-6 and C6-7. Overall, I am pleased with this patient's progress from surgery. Thank you for allowing us to participate in this patient's care. Not available 12/25/2024 10:08:28 Plan of Treatment Reminders Order Date Submit Date Provider Last Modified By Organization Details Last Modified Time Details Appointments Imaging 5.PRO 2024 12:45P M Radiology Not available Not available Not available Mark hed Patient 15.EST 2024 09:15A M Destiny Odom Not available Not available Not available Lab None recorded . Referral None recorded . Procedures None recorded . Surgeries None recorded . Imaging MRI, cervical spine, w/o contrast 03/20/ 025 YARELIS [facility], [address] [place] [address], [address], 03/20/2025 12:57:51 Medication Orders None recorded . Patient TargetsNo targets recorded. Patient InstructionsNo instructions recorded. Reason for Referral None Reported. Results Created Date Observation Date Name Description Value Unit Range Abnormal Flag Note LastModifiedBy Organization Detail LastModifiedTime 04/05/2004/05/2024 MRI, cervi chantelle spine , w/o contr ast [address] [address] Tele one Name: Jyotsna Sellers [id number] am Date: 2023 Age: 64Phys ician: Edmond monroy, CLAIRETy : 1959Ex aminat ion: MRI CERVIC AL [...] oramin al stenos is. C3-4:L arge left promotional model olater al disc extrus ion causin g [...] MARIAM: 1. Modera te to large left promotional model olater al disc extrus ion at C3-4 [...] 2:28 PM cc: Page PAGE 1 of [facility] 1 [email or web address] [facility] Only - [facility] Radiology [address] [place] [address], [address], 04/09/2024 10:26:51 08/22/20 24 04/12/2024 elect thiago suarez am, routi ne ECG, 12 leads min; inter preta tion and repor t (PROC ) No observ ation record ed. [email or web address] Not Available 08/23/2024 21:07:02 10/04/19 25 10/04/2024 XR, cervi chantelle spine , 2 or 3 view [place] [id number] Teleph one Name: Jyotsna Sellers [id number] am Date: 2024 Age: 64Phys ician: Edmond monroy, DIRECTOR [employer], Ty rothman : 1959Ex aminat ion: XR [...] 9:49 AM cc: Page PAGE 1 of [facility] 1 [email or web address] Vt Only - Sc Radiology [facility] [place] [address], [address], 10/04/2024 11:10:11 12/26/19 25 12/25/2024 XR, cervi chantelle spine , 2 or [address] [address] Teleph one [phone] Name: Jyotsna Sellers [id number] am Date: 2024 Age: 64Phys ician: Mary anders MD, Estela : 1959Ex aminat ion: XR CERVIC AL 2 OR 3 VIEWS EXAMIN ATION: XR CERVIC AL 2 OR 3 VIEWS HISTOR Y: Follow up ACDF C3-4. Surger y done 4. COMPAR GABBY: 025 TECHNI QUE: Cervic al spine 2 views latera l flexio n and extens ion views uprigh t exam FINDIN GS: Anteri or fusion at C3-4. Hardwa re is intact . Alignm ent is preser yael betwee n flexio n and extens ion views. There is disc space narrow ing and spondy losis at C6-7 with 2 mm retrol isthes is of C6 on C7. Multil evel facet arthri tis. No prever tebral soft tissue swelli ng. IMPRES MARIAM: Alignm ent preser yael betwee n flexio n and extens ion views. Anteri or fusion at C3-4 with hardwa re intact . Electr onical ly signed in Pramana by: RODERICK Arvizu DO on:12/05 8:31 AM cc: Page PAGE 1 of [facility] 1 [email or web address] Vt Only - Sc Radiology [facility], [address], 12/26/2024 14:45:34 Result Notes Documentation Provider Name and Address Organization Details Recorded Time Xr, Cervical Spine, 2 Or 3 View : [place] [address] Name: Alva Shore Date: 10/04/2024 Age: 64Physician: CLAIRE Odom, Destiny : 1960Examination: XR CERVICAL 2 OR 3 VIEWS Exam: XR CERVICAL 2 OR 3 VIEWS INDICATION: 3 month post-op follow up on ACDF C3-4, date of surgery was 05/28/24. Patient states neck pain has improved since surgery. PROCEDURE: Lateral, frontal, odontoid views of the cervical spine were obtained. COMPARISON:None FINDINGS: There is reversal of curvature of the cervical spine. Anterior cervical fusion with disc spacer at C3-4 level seen. No hardware complications noted. There is degenerative disc disease and facet arthropathy at C6-7 level with mild retrolisthesis. Mild degenerative disc disease and facet arthropathy at other cervical levels also. The imaged soft tissues appear normal. IMPRESSION: 1. Anterior cervical fusion at C3-4 level without complicating features. 2. Significant cervical spondylosis at C6-7 level with mild retrolisthesis. Electronically signed in Lyft by: SHERIN REHMAN MD on:10/04/2024 9:49 AM cc: Page PAGE 1 of [facility] 1 Destiny Odom APRN, POLICE LIAISON [address] [place] [address], [phone], [facility] 10/04/2024 11:10:11 Xr, Cervical Spine, 2 Or 3 View : [address] [address] Name: Alva Shore Date: 12/25/2024 Age: 64Physician: MD Yimi, Estela : 1960Examination: XR CERVICAL 2 OR 3 VIEWS EXAMINATION: XR CERVICAL 2 OR 3 VIEWS HISTORY: Follow up ACDF C3-4. Surgery done 05/28/24. COMPARISON: 10/04/2024 TECHNIQUE: Cervical spine 2 views lateral flexion and extension views upright exam FINDINGS: Anterior fusion at C3-4. Hardware is intact. Alignment is preserved between flexion and extension views. There is disc space narrowing and spondylosis at C6-7 with 2 mm retrolisthesis of C6 on C7. Multilevel facet arthritis. No prevertebral soft tissue swelling. IMPRESSION: Alignment preserved between flexion and extension views. Anterior fusion at C3-4 with hardware intact. Electronically signed in PowerScribe by: CODY HAMILTON DO on:12/25/2024 8:31 AM cc: Page PAGE 1 of [facility] 1 Destiny Odom APRN, POLICE LIAISON [address] [place] [address], [phone], [facility] 12/26/2024 14:45:34 Problems Name Problem SNOMED Code Status Onset Date Resolution Date Notes Provider Name and Address Organization Details Recorded Time Cervical spondylosis 190119169 Active 2023 Destiny Odom APRN, POLICE LIAISON [address] [place] [address], [phone] , [facility] 13:45:38 Cervical radiculopathy 91311363 Active 2023 Audrey Stevenson, PREPARED FOODS ASSOCIATE, POLICE LIAISON [address] [place] [address], [phone] , [facility] 21:16:13 Notes:Some problems listed i n Document: #[id number] could not be added to this patient's chart. Please review this document and add these problems to the patient's chart manually as needed. Problem Notes None recorded. Procedures Surgical History Date Name Laterality Status Provider Name and Address Organization Details Recorded Time 05/28/20 24 fusion of joint of cervical spine with internal fixation by anterior approach completed Mayte Lavonne [facility] 12/25/2024 08:19:34 02/27/20 24 Date of Last Mammogram completed Not Available Health Note 03/29/2024 14:53:52 02/22/19 84 Date of Last Pap Smear completed Not Available Health Note 03/29/2024 14:53:52 Colonoscopy with biopsy completed Not Available Health Note 03/15/2024 11:26:53 Partial hysterectomy completed Not Available Health Note 03/15/2024 11:26:53 Removal of tonsils completed Not Available Health Note 03/15/2024 11:26:53 Imaging Results None recorded. Procedure Notes None recorded. Medical Equipment None Reported. Allergies Allergen ID Allergen Name Allergen Category Reaction Reaction Severity Criticality Documentation Date Start Date Code Code System Note Provider Name and Address Organization Details Recorded Time 492596 fexofenad ine medicatio n Not available Not available Not available 10/03/20232021 08436 RxNorm Not Available [facility] 23:40:51 838063 Product containin g penicilli n (product) medicatio n Not available Not available Not available 10/03/20232021 34350 8001 SNOMED Not Available [facility] 23:40:51 Medications Name Sig Start Date Stop Date [...] tablet TAKE 2 TABLETS BY MOUTH DAILY 12/25 completed Not Available Not Available Not Available alendronate 70 mg tablet TAKE 1 TABLET BY MOUTH WEEKLY active Not Available Not Available No t Available tramadol 50 mg tablet TAKE 1 TABLET BY MOUTH EVERY 6 HOURS NEEDED FOR PAIN 07/12 completed Not Available Not Available Not Available levothyroxi ne 100 mcg tablet TAKE 1 TABLET BY MOUTH DAILY 12/25 completed Not Available Not Available Not Available levothyroxi ne 88 mcg tablet TAKE 1 TABLET BY MOUTH DAILY 07/12 completed Not Available Not Available Not Available doxycycline monohydrate 100 mg capsule TAKE 1 CAPSULE BY MOUTH TWICE DAILY 12/25 completed Not Available Not Available Not Available hydrocodone 7.5 mg-acetamin ophen 325 mg tablet TAKE 1 TABLET BY MOUTH EVERY 6 HOURS NEEDED FOR PAIN 07/12 completed Not Available Not Available Not Available cephalexin 500 mg capsule TAKE 1 CAPSULE BY MOUTH THREE TIMES DAILY FOR 3 DAYS 12/25 completed Not Available Not Available Not Available prednisone 50 mg tablet TAKE 1 TABLET BY MOUTH ONCE DAILY 04/05 completed Not Available Not Available Not Available docusate sodium 100 mg capsule TAKE 1 CAPSULE BY MOUTH TWICE DAILY active Not Available Not Available No t Available gabapentin 300 mg capsule TAKE 1 CAPSULE BY MOUTH [...] Not Available Not Available No t Available fluticasone propionate 50 mcg/actuati on nasal spray,suspe nsion SHAKE LIQUID AND USE 1 SPRAY IN EACH NOSTRIL TWICE DAILY active Not Available Not Available No t Available duloxetine 60 mg capsule,del ayed release TAKE 1 CAPSULE BY MOUTH DAILY active Not Available Not Available No t Available FeroSul 325 mg (65 mg iron) tablet TAKE 1 TABLET BY MOUTH EVERY DAY active Not Available Not Available No t Available levothyroxi ne 100 mcg capsule active Not Available Not Available Not Available Trelegy Ellipta 100 mcg-62.5 mcg-25 mcg powder for inhalation USE 1 INHALATIO N EVERY DAY active Not Available Not Available No t Available Airsupra 90 mcg-80 mcg/actuati on HFA aerosol inhaler Inhale by inhalatio n route. active Not Available Not Available No t Available Vitals Date Recorded Body weight Heart rate Oxygen saturation Oxygen saturation in Arterial blood by Pulse oximetry Systolic And Diastolic Provider Name and Address Organization Details Last Updated DateTime 5 70432.9 2 g 115 /min 98 % 98 % 126/82 mm[Hg] Becky Lakeshia [facility] 5 10:10:13 Date Recorded Body weight Heart rate Oxygen saturation Oxygen saturation in Arterial blood by Pulse oximetry Systolic And Diastolic Provider Name and Address Organization Details Last Updated DateTime 5 19249.5 6 g 93 /min 98 % 98 % 118/72 mm[Hg] [facility] 5 09:49:26 Date Recorded Body weight Oxygen saturation Oxygen saturation in Arterial blood by Pulse oximetry Heart rate Systolic And Diastolic Provider Name and Address Organization Details Last Updated DateTime 4 50538.8 6 g 97 % 97 % 55 /min 120/78 mm[Hg] Yulisa Maguire [facility] 4 09:59:17 Date Recorded Body weight Oxygen saturation Oxygen saturation in Arterial blood by Pulse oximetry Heart rate Systolic And Diastolic Provider Name and Address Organization Details Last Updated DateTime 4 34526.4 5 g 97 % 97 % 108 /min 118/78 mm[Hg] Mayte Schulte [facility] 4 11:34:27 Social History Question Answer Notes LastModified by Organizat ion Details LastModified Time Do You Have An Advance Directive? Yes [email or web address] Information not available 03/29/2024 What Is Your Level Of Caffeine Consumption? Heavy [email or web address] Information not available 03/29/2024 What Is Your Code Status? DNR [email or web address] Information not available 03/29/2024 Which Illicit Or Recreational Drugs Have You Used? Marijuana [email or web address] Information not available 03/29/2024 How Many [...] Do You Have A Medical Power Of Assistant Scientist? Yes [email or web address] Information not available 03/29/2024 What Was The Date Of Your Most Recent Tobacco Screening? 04/05/2024 [email or web address] Information not available 03/29/2024 What Is Your Relationship Status? [email or web address] Information not available 03/29/2024 Sex: Unknown Functional Status Question Answer Note LastModified by Organizat ion Details LastModified Time How many times per week do you consume alcohol? Less than 1 time per week [email or web address] Information not available 03/29/2024 Do you use any illicit or recreational drugs? Yes [email or web address] Information not available 03/29/2024 What is your level of alcohol consumption? Occasional [email or web address] Information not available 03/29/2024 Are you currently employed? No [email or web address] Information not available 03/29/2024 What is your occupation? Retired [email or web address] Information not available 03/29/2024 What is your exercise level? Moderate [email or web address] [...] available 2023 14:53:48 Medical History Condition Response High Blood Pressure N COPD Y Depression N Anxiety Disorder Y Arthritis Y Cancer N Stroke N Fibromyalgia N Kidney Disease N Attention-deficit Hyperactivity Disorder N Thyroid Problems Y Anemia N Diabetes N Bleeding Disorder N Hyperlipidemia N Asthma Y Seizures N Heart Disease N Osteoporosis N Gynecological History Statement/Question Response Abnormal Pap Y If Post Menopausal, Age at Menopause 24 Date of Last Pap Smear 02/23/1984 Age at Menarche 8 Date of Last Mammogram 02/27/2024 Obstetrics History GPAL:G 0 P 0 0 0 0 Past Encounters Encounter ID Performer Location Encounter Start Date Encounter Closed Date Diagnosis/Indication Diagnosis SNOMED-CT Code Diagnosis ICD10 Code Diagnosis Note [id number] Destiny Odom, PREPARED FOODS ASSOCIATE, POLICE LIAISON [address] [facility] [place] ([place]) [address] [place] [address] 03/22/2024 10:19:20 03/22/2024 11:32:17 Cervical spondylosis 691676294 M47.574 [id number] Audrey Stevenson, PREPARED FOODS ASSOCIATE, POLICE LIAISON [address] [facility] [place] ([place]) [address] [place] [address] 04/05/2024 14:24:03 04/05/2024 17:53:51 Cervical spondylosis 757025060 M47.812 Cervical radiculopathy 55380217 M54.12 [id number] Estela guajardo MD [address] [facility] [place] ([place]) [address] [place] [address],[address] [place] [address] 04/24/2024 15:25:42 04/24/2024 16:51:52 Cervical spondylosis 143241554 M47.812 [id number] Destiny Odom APRN, POLICE LIAISON [address] [facility] ([place]) [address] [place] [address],[address] [place] [address] 06/14/2024 09:40:51 06/14/2024 16:15:18 Cervical radiculopathy 14269871 M54.12 [id number] Estela guajardo MD [address] [facility] ([place]) [address] [place] [address],[address] [place] [address] 07/12/2024 11:20:58 07/12/2024 11:43:57 Cervical spondylosis 140309343 M47.812 [id number] Destiny Odom APRN, POLICE LIAISON [address] [facility] ([place] [address] [place] [address],[address] [place] [address] 10/04/2024 09:37:27 10/04/2024 12:14:16 Cervical radiculopathy 41818496 M54.12 [id number] Estela guajardo MD [address] [facility] ([place]) [address] [place] [address],[address] [place] [address] 12/25/2024 09:32:57 12/25/2024 12:46:59 Cervical radiculopathy 64725747 M54.12 Health Concerns Section Related Observation LastModified by Organization Detai ls LastModified Time None Recorded Concern Status LastModified by Organization Details LastModified Time None Recorded Advance Directives Directive Y: Payers Insurance Date Sequence Insurance Name Policy Number Policy Hawkins Covered Member ID Hawkins Member ID Guarantor Name 12/21/2024 1 [place] Alva Shore [id number] Alva Shore 05/24/2024 2 [employer] (MEDICARE SUPPLEMENT) Alva Shore [id number] Alva Shore 12/26/2024 2 [employer] [place] (MEDICARE SUPPLEMENT) Alva Shore [id number] Alva Shore OBGyn Episode No OBEpisode recorded.
== END 2025-04-02 12:46 | disposition home or self-care (01) ==
LOC: CHSIMG 12:46
PROVIDERS: PCP Nurse Practitioner Family; Visit Provider Nurse Practitioner Family
DX: Z12.31 Encounter for screening mammogram for malignant neoplasm of breast (principal)
CPT/HCPCS: 77063; 77067

== ENCOUNTER 2025-05-30 10:41 | Outpatient (CLI) | payer MEDICARE, OTHER, SELFPAY ==
--- OUTSIDE RECORDS SUMMARY | 2024-12-19 08:53 | XMS_ITS | Continuity of Care Document ---
Author Organization [facility], L Address [address] [place] [address] Phone Care Team Providers Care Forest Ranger Name Role Phone OberrVerna mary OD Unavailable Unavailabl e Allergies, Adverse Reactions, Alerts Substance Reaction Status Criticality ADHESIVE BANDAGE Hives / Skin Rash(severe) Active No Information PENICILLIN Active No Information Medications Medication Instructions Dosage Effective Dates (start - stop) Status Comments loratadine 10 mg tablet take 1 tablet by oral route every day 10 MG - Active Benadryl Allergy 25 mg tablet take 1 tablet by oral route every 6 hours as needed for itching and give 2 tablets by oral route q HS 25 MG - Active tramadol 25 mg tablet take 2 tablet by oral route every 4 - 6 hours as needed 50 MG - Active lorazepam 1 mg tablet take 1 tablet by oral route 3 times every day as needed 1 MG - Active omeprazole 40 mg capsule,delayed release take 1 capsule by oral route every day before a meal 40 MG - Active montelukast 10 mg tablet take 1 tablet by oral route every day in the evening 10 MG - Active levothyroxine 13 mcg capsule instill 1 drop by Ophthalmic route every 12 hours OU 1 drop - Active gabapentin 300 mg capsule take 1 capsule by oral route 3 times every day 300 MG - Active duloxetine 30 mg capsule,delayed release take 1 capsule by oral route every day 30 MG - Active cyclobenzaprine 7.5 mg tablet take 1 tablet by oral route every day 7.5 MG - Active alendronate 10 mg tablet take 1 tablet by oral route every week in the morning, at least 30 min before first food, beverage, or medication of day 10 MG - Active Airsupra 90 mcg-80 mcg/actuation HFA aerosol inhaler inhale 2 puff by inhalation route as needed :not to exceed 6 doses per day 2.00 puff - Active Procedures Procedure Date REFRACTION EYE EXAM, NEW PATIENT Advance Directives Directive Yes / No Effective Date File Name No Information Encounters Encounter Description Practice Location Reason(s) For Visit Diagnoses Date Provider Providers Copied on Encounter [facility], [address] [place] [address], [id number] , tel:[phone] [facility] No Information Steff Gillespie. [address] , [place], [place], [id number], [place]. [phone] [facility], [address] [place] [address], [id number] , tel:[phone] [facility] vision exam (chief complaint) Hypermetropia, bilateralPresbyopi aRegular astigmatism, bilateralDry eye syndrome of bilateral lacrimal glandsAge-related nuclear cataract, bilateralOther chronic allergic conjunctivitis Steff Gillespie. [address], [place], [place], [id number], [place]. tel:[phone] Referring Provider: Verna Pena, [address], [place], [address]. [phone] Family History Family Member Type Diagnosis Age At Onset Paternal grandmother Problem Hypertension Parents Problem Cataracts Problem No family history of Glaucom a Problem No family history of Macular degeneration Paternal grandmother Problem Diabetes mellitus Payers Payer name Insurance type Covered green party ID Authoriza tihayes(s) [facility] CI [id number] Social History Type Description Quantity Date Captured Comments Sex Female Smoking Status No Information Chief Complaint And Reason For Visit No Information Reason For Referral Reason For Referral No Information History Of Present Illness Encounter Date Complaint History Of Prese nt Illness vision exam The 64 year old patient presents for vision exam. Pt states DVA and NVA has changed c gls. Pt denies pain or discomfort but says allergies are making OD puffy and swollen., pt is using Systane PRN. Functional Status Date Functional Assessmen t No Information Instructions Date Instruction Additional Infor john Impression/Plan Assessments Type Assessment Date No Information Patient Care Teams Name Effective Dates (start - stop) Status Members No Information
--- NOTE | ~2025-05-30 | US_ITS ---
US thyroid INDICATION: Abnormal thyroid gland TECHNIQUE: Real-time sonographic images of the thyroid gland were obtained. COMPARISON: No prior studies for comparison. FINDINGS: The right thyroid lobe measures 4 x 1 x 1.3 cm. The left thyroid lobe measures 2.7 x 1 x 1.1 cm. There is heterogeneous echotexture and echogenicity throughout the thyroid gland. There is a peripherally calcified 7 mm mass which appears solid, wider than tall, hypoechoic with smooth margins, TR 4, likely benign. No additional masses are identified in either lobe. Isthmus measures 3 mm. Normal vascular flow is present. IMPRESSION: 1. Peripherally calcified 7 mm right thyroid mass, TR 4. This does not meet sonographic criteria biopsy. Reviewed, dictated and finalized at location O. IMPRESSION: 1. Peripherally calcified 7 mm right thyroid mass, TR 4. This does not meet so nographic criteria biopsy.
--- OUTSIDE RECORDS SUMMARY | 2025-05-30 12:09 | XMS_ITS | Clinical Summary ---
Author Organization [facility] Address [address] [place] [address] Care Team Providers Care Urology Nurse Name Role Phone Lou Mcfarland SECURITIES DEALER Primary Care Provider [phone] Allergies Active Allergy Reactions Criticality Noted Date Comments Fexofenadine Headache High 03/10/2022 anxiety Penicillins Unknown 04/28/2012 many years ago- unsure of reaction, allergy testing stated she [...] 3:51 PM CDT Height 157.5 cm (5' 2) 05/01/2024 3:51 PM CDT Body Mass Index 28.53 05/01/2024 3:51 PM CDT Plan of Treatment Health Maintenance Due Date Last Done Comments Colorectal Cancer Screening Colonoscopy (10 Years) 1960 Hepatitis C 1977 Zoster Vaccines (1 of 2) 2009 Mammogram Screening 07/01/2016 07/01/2014 Pneumococcal Vaccine: 50+ Years (2 of 2 - PCV) 09/27/2019 09/27/2018 Annual Medicare Wellness Visit 02/23/2024 Dexa Scan (General) 02/23/2024 COVID-19 Vaccine (1 - 2023-2 5 season) 2025 DTaP, Tdap and Td Vaccines ( 3 [...] this topic Medical Devices Implanted Type Area Spray Gun Repairer Helper Device Identifier Shelf Expiration Date Model / Serial / Lot Screw David Shruthi 3.0mm X 16mm - [id number] Implanted:Qty: 2 on 06/16/2022 by Edith Mark DPM at [facility] Screw Right: Foot [employer] / / Anis Screw Implanted:Qty: 1 on 06/16/2022 by Edith Mark DPM at [facility] Right: [employer] 40 / / Explanted Type Area Spray Gun Repairer Helper Device Identifier Shelf Expiration Date Model / Serial / Lot K-Wire 1.2mm X 100mm - [id number] Explanted:Qty: 2 on 06/16/2022 at [facility] Wire Right: [employer] [place] [id number] / / K- Wire 0.8mm Explanted:Qty: 1 on 06/16/2022 at [facility] Wire Right: [employer] 45- / / Procedures Procedure Name Priority Date/Time [...] JOAQUIM SHORE ORDERING MD: DEIRDRE DAVIDSON ACCT: [id number] ADMIT/SERVICE DATE: 07/01/14 DISCHARGE DATE: : 1960 PT TYPE: REG CLI SEX: F ORD SITE: [facility] STUDY DATE REPORT # PROCEDURE CODE PROCEDURE 07/01/14 [id number] SCMAMDGB MG SCREEN MAMMO DIGITAL BI EXTORDERID [id number] CHART DOCUMENT DIVISION OF RADIOLOGY ACCESSION # EXAM DATE EXAM DESCRIPTION [id number] 07/01/2014 MG SCREEN MAMMO DIGITAL BI IMAGING [...] 07/01/201401:20 P 07/01/2014 02:26 P JOB NO: [id number] DOC NO: [id number] CC: Procedure Note Ambika Mercer MD - 06/29/2018 JOAQUIM SHORE ORDERING MD: DEIRDRE DAVIDSON ACCT: [id number] ADMIT/SERVICE DATE: 07/01/14 DISCHARGE DATE: : 1960 PT TYPE: REG CLI SEX: F ORD SITE: [facility] STUDY DATE REPORT # PROCEDURE CODE PROCEDURE 07/01/14 0931-6774 SCMAMDGB MG SCREEN MAMMO DIGITAL BI EXTORDERID [id number] CHART DOCUMENT DIVISION OF RADIOLOGY ACCESSION # EXAM DATE EXAM DESCRIPTION [id number] 07/01/2014 MG SCREEN MAMMO DIGITAL BI IMAGING [...] 07/01/201401:20 P 07/01/2014 02:26 P JOB NO: [id number] DOC NO: [id number] CC: us Generic Conversion Md MERCER MAMMO Final R esult from Last 3 Months or Most Recently Relevant to Health Maintenance Insurance MEDICARE [facility] Care Teams Urology Nurse Relationship Specialty Start Date End Date Lou Mcfarland, MERLE [address] [place] [address] PCP - General NURSE PRACTITIONER 06/16/22
--- OUTSIDE RECORDS SUMMARY | 2025-05-30 12:09 | XMS_ITS | Patient Health Record ---
Author Organization [facility] Address [address] [place], [place] [address] Care Team Providers Care Sales Apprentice Name Role Phone SAI SchwartzILY Unavailable [phone] Gi Whitlock Unavailable Unavailable Reason For Referral No Information Plan Of Treatment No Information Insurance Providers Payer Name Payer Address Payer Phone Subscriber Number Group Number Insured Name Patient Relationship to Insured Coverage Start Date Coverage End Date [facility] ([facility]) ATTN CLAIMS [address] [place] [address] [id number] JOAQUIM CARLIN Self - patient is the insured
--- OUTSIDE RECORDS SUMMARY | 2025-05-30 12:09 | XMS_ITS | Encounter Summary ---
Author Organization [facility] Address [facility] [place] [address] Care Team Providers Care Cook Tortilla Name Role Phone Lou Mcfarland Primary Care Provider [phone] Encounter Details Date Type Department Care Team (Latest Contact Info) Description 07/11/2018 [facility] , Ambika Rios MD [...] documented as of this encounter Care Teams Cook Tortilla Relationship Specialty Start Date End Date Lou Mcfarland FNP [address] [place] [address] PCP - General NURSE PRACTITIONER 06/16/22 documented as of this encounter
--- OUTSIDE RECORDS SUMMARY | 2025-05-30 12:09 | XMS_ITS | Encounter Summary ---
Author Organization [facility] Address [facility] [place] [address] Care Team Providers Care Blade Bender Furnace Tender Name Role Phone Lou Mcfarland Primary Care Provider [phone] Encounter Details Date Type Department Care Team (Late st Contact Info) Description 02/10/2019 Abstract [facility] CONVERSION [address] [place] [address] , Generic Conversion, Social History Tobacco Use [...] documented as of this encounter Care Teams Blade Bender Furnace Tender Relationship Specialty Start Date End Date Lou Mcfarland FNP [address] [place] [address] PCP - General NURSE PRACTITIONER 06/16/22 documented as of this encounter
[2025-05-30 12:19] LABS: Free T4 Free Thyroxine 1.08 ng/dL (0.78-2.19)
[2025-05-30 12:33] LABS: Thyroid Stimulating Hormone 4.010 uIU/mL (0.465-4.680)
[2025-05-31 08:32] LABS: Total Triiodothyronine (T3) 0.712
== END 2025-05-30 10:42 | disposition home or self-care (01) ==
LOC: CHSIMG 10:43
PROVIDERS: PCP Nurse Practitioner Family; Visit Provider Nurse Practitioner Family
DX: E03.9 Hypothyroidism, unspecified (principal); R79.89 Other specified abnormal findings of blood chemistry; R93.89 Abnormal findings on diagnostic imaging of other specified body structures; E07.9 Disorder of thyroid, unspecified
CPT/HCPCS: 36415; 76536; 84439; 84443; 84480; 86803

== ENCOUNTER 2025-08-19 13:40 | Outpatient (CLI) | payer MEDICARE, OTHER, SELFPAY ==
--- NOTE | ~2025-08-19 | XR_ITS ---
EXAMINATION: XR finger 1st RT min 2V, 08/19/2025 14:15 [facility] ASSISTANT DIRECTOR HISTORY: M79.644 - Pain in right finger(s) COMPARISON: No comparisons available. Findings: No acute fracture or malalignment. No significant degenerative changes. Soft tissues unremarkable. Impression: No acute fracture or malalignment. Reviewed, dictated and finalized at location P. D CARE CENTER ASSISTANT DIRECTOR Impression: No acute fracture or malalignment.
--- NOTE | ~2025-08-19 | XR_ITS ---
EXAMINATION: XR chest 2V DATE: 08/19/2025 14:30 INDICATION: Encounter for other preprocedural examination TECHNIQUE: frontal view of the chest was obtained. COMPARISON: Chest radiograph dated 09/13/2024 FINDINGS: Again seen is a calcified nodule left lower lung zone consistent with old granulomatous disease. There is an additional new 7 mm nodular opacity projecting over the apex of the right hemidiaphragm. No other airspace opacities, pulmonary edema, pleural effusion or pneumothorax. The cardiomediastinal silhouette is normal. Visualized bones and soft tissues are unremarkable. IMPRESSION: 1. Indeterminate new 7 mm nodular opacity projecting over the right hemidiaphragm. Consider follow-up low-dose noncontrast chest CT for further evaluation. No other acute cardiopulmonary disease. Reviewed, dictated and finalized at location A. SERVICES MANAGER IMPRESSION: 1. Indeterminate new 7 mm nodular opacity projecting over the right hemidiaphra gm. Consider follow-up low-dose noncontrast chest CT for further evaluation. No other acute cardiopulmonary disease.
--- NOTE | 2025-08-19 13:59 | ECG_ITS ---
Test Date: 2025-08-19 14:17:52 Measurements Intervals Wagner Rate: 82 P: 70 MI: 160 QRS: 67 QRSD: 84 T: 53 QT: 375 QTc: 438 Interpretive Statements SINUS RHYTHM WITH SINUS ARRHYTHMIA NORMAL ECG Compared to ECG 02/20/2025 14:58:45 No significant changes Electronically Signed On 08-19-2025 14:22:45 WRECKER OPERATOR by Abdulkadir García D.O.
[2025-08-19 14:01] LABS: Add Urine Microscopic? NO; Appearance Urine Clear (Clear); Glucose Urine UA Negative (Negative); Leukocyte Esterase Ur Negative LEU/UL (Negative); Nitrate Urine Negative (Negative); Specific Grav Ur <= 1.005 (1.010-1.020)
[2025-08-19 14:13] LABS: INR 0.9; Partial Thromboplastin Time 30.9 Sec (23.9-30.70); Prothrombin Time 10.5 Seconds (9.50-12.1)
[2025-08-19 14:18] LABS: Alanine Aminotransferase 26 U/L (6-35); Albumin Level 4.7 g/dL (3.5-5.1); Alkaline Phosphatase 88 U/L (38-126); Anion Gap 9 mmol/L (4-12); Aspartate Amino Transferase 33 U/L (14-36); Bilirubin,Total 0.3 mg/dL (0.2-1.3); Blood Urea Nitrogen 14 mg/dL (7-17); Calcium 9.8 mg/dL (8.4-10.2); Carbon Dioxide 26 mmol/L (22-30); Chloride 103 mmol/L (98-107); Cholesterol 253 mg/dL (0-200); Estimated Glomerular Filt Rate > 60; Glucose 90 mg/dL (65-110); HDL Direct 71 mg/dL; Osmolality Calculated 286 mOsm/kg (285-295); Potassium 4.5 mmol/L (3.4-5.0); Sodium 138 mmol/L (137-145); Total Protein 7.1 g/dL (6.3-8.2); Triglycerides 233 mg/dL (<150)
[2025-08-19 14:36] LABS: Free T4 Free Thyroxine 1.10 ng/dL (0.78-2.19)
[2025-08-19 14:50] LABS: Thyroid Stimulating Hormone 3.150 uIU/mL (0.465-4.680)
[2025-08-19 15:27] LABS: Hematocrit 39.9 % (35.0-42.0); Hemoglobin 13.6 g/dL (11.7-13.8); Immature Granulocyte Percent A 0.6 % (0.0-0.0); Lymphocytes Absolute Auto 3.96 K/mm3 (1.10-4.50); Mean Corpuscular HGB Conc 34.1 g/dL (32-36); Mean Corpuscular Hemoglobin 33.7 pg (27.0-31.0); Mean Corpuscular Volume 99.0 fL (78.0-102.0); Nucleated Red Blood Cells Absolute Auto 0.00 K/mm3 (0.00-0.00); Nucleated Red Blood Cells Perc 0.0 % (0-0.0); Platelet Count Result 448 K/mm3 (150-420); Red Blood Count 4.03 M/mm3 (4.20-5.40); White Blood Count 10.7 K/mm3 (4.8-10.8)
[2025-08-21 10:56] LABS: Total Triiodothyronine (T3) 0.96 NG/ML (0.97-1.69)
== END 2025-08-19 13:41 | disposition home or self-care (01) ==
PROVIDERS: PCP Nurse Practitioner Family; Visit Provider Nurse Practitioner Family
DX: Z01.818 Encounter for other preprocedural examination (principal); Z13.6 Encounter for screening for cardiovascular disorders; E78.5 Hyperlipidemia, unspecified; R79.89 Other specified abnormal findings of blood chemistry; E03.9 Hypothyroidism, unspecified; M79.644 Pain in right finger(s); R91.8 Other nonspecific abnormal finding of lung field
CPT/HCPCS: 36415; 71046; 73140; 80053; 80061; 81003; 84439; 84443; 84480; 85025; 85610; 85730; 93005